=== PATIENT | female | born 1975 | race Caucasian/White ===

== ENCOUNTER 2017-04-22 19:52 | Emergency (ER) | payer BC, SELFPAY ==
[2017-04-22 21:36] VITALS: BP 138/98; PULSE 66; RESP 20; TEMP 36.7; O2SAT 96; BMI 23.9
--- NOTE | 2017-04-22 21:44 | CT_ITS ---
CT abdomen pelvis wo con CLINICAL INDICATION: Right upper quadrant pain ITS.REASON: RUQ PAIN ORDERING PHYSICIAN: Kai Juan MD PATIENT AGE: 41 years COMPARISON: None TECHNIQUE: Axial images obtained with sagittal and coronal reformats. PROCEDURE: Oral Contrast: None IV Contrast: None . FINDINGS: Lower thorax: No acute finding ABDOMEN: Liver: No masses or biliary dilatation. Gallbladder: Nondistended. No radio opaque stones. Pancreas: No masses or peripancreatic fluid collections. Spleen: Unremarkable. Adrenals: Unremarkable Kidneys/ureters: No masses. No renal calculi. No hydronephrosis. No perinephric fluid collections. No ureteral dilatation or obvious ureteral calculi. Stomach bowel: Nondistended. No obvious mass or thickening. Appendix: Prior appendectomy PELVIS: Reproductive: Status post hysterectomy Bladder: Nondistended. No obvious stones or masses. ABDOMEN & PELVIS: Peritoneum: No abnormal fluid collections. No obvious inflammatory changes. No free air. Lymph nodes: No enlarged lymph nodes apparent. Vasculature: No evidence of abdominal aortic aneurysm. No retroperitoneal hemorrhage evident. Bones: No acute fracture IMPRESSION: No acute abdominal or pelvic findings
[2017-04-22 21:52] LABS: Microscopic, Urine URINE MICROSCOPIC (MICROSCOPIC)
[2017-04-22 21:55] LABS: Appearance,Urine SL CLOUDY (Clear); Bilirubin,Urine Negative (Negative); Blood, Urine Negative (Negative); Color,Urine YELLOW (Yellow); Glucose,Urine (UA) Negative (Negative); Ketones,Urine Negative (Negative); Leukocyte Esterase,Urine Negative (Negative); Nitrate,Urine Negative (Negative); Protein,Urine Negative (Negative); Specific Gravity, Urine 1.025 (1.005-1.030); Urobilinogen,Urine 0.2 EU/dl (0.2)
[2017-04-22 22:10] LABS: Basophils # 0.1 K/mm3 (0-0.2); Basophils % 0.6 % (0.1-2.0); Eosinophils # 0.1 K/mm3 (0.0-0.4); Eosinophils % 1.3 % (0.1-12.0); Hematocrit 40.9 % (37.0-47.0); Hemoglobin 13.1 g/dL (12.2-16.2); Lymphocytes # 3.3 K/mm3 (0.7-4.5); Lymphocytes % 38.9 K/mm3 (10-50); Mean Corpuscular HGB Conc 32.1 g/dL (31.8-35.4); Mean Corpuscular Hemoglobin 26.6 pg (27.0-31.2); Mean Corpuscular Volume 82.9 fl (81-99); Mean Platelet Volume 8.4 fl (7.4-10.4); Monocytes # 0.7 K/mm3 (0.1-1.0); Monocytes % 8.4 % (1.7-9.3); Neutrophils # 4.3 K/mm3 (1.8-7.8); Neutrophils % 50.8 % (37.0-80.0); Platelet Count 236 K/mm3 (142-424); Red Blood Count 4.93 M/mm3 (4.20-5.40); Red Cell Distribution Width 13.5 % (11.5-17.5); White Blood Count 8.4 K/mm3 (4.8-10.8)
[2017-04-22 22:30] LABS: Bacteria,Urine 2+ /lpf; Mucus,Urine 2+ /lpf; RBC,Urine Occasional #/hpf (0-3); Squamous Epithelial Cell,Urine TNTC #/hpf (0-5)
--- NOTE | 2017-04-23 00:09 | HMH.EDGENADL ---
ED Disposition Clinical Impression: Pancreatitis Qualifiers: Chronicity: acute Pancreatitis type: unspecified pancreatitis type Acute pancreatitis complication: no infection or necrosis Qualified Code(s): K85.90 - Acute pancreatitis without necrosis or infection, unspecified Abdominal pain Qualifiers: Abdominal location: right upper quadrant Qualified Code(s): R10.11 - Right upper quadrant pain Disposition: Home, Self-Care Condition on Discharge: Good Instructions: DI for Pancreatitis Additional Instructions: no fluids and call pcp in am and recheck if needed Referrals: Rahul Mars [Primary Care Provider] - - Critical Care Critical Care Time: No Attestation: On 04/22/17, the high probability of a clinically significant, sudden or life threatening deterioration of the following system(s) required my full and direct attention, intervention and personal management. The time I documented below is in addition to time spent performing reported procedures but includes the following listed in this critical care notation. Medical Decision Making - Medical Records Medical records reviewed: Yes: I reviewed the patient's medical records. Vital Signs: 04/22/17 21:36 Temperature 98.1 F Temperature Source Oral Pulse Rate [Right Brachial] 66 Respiratory Rate 20 Blood Pressure [Right Arm] 138/98 Blood Pressure Mean [Right Arm] 111 Blood Pressure Source [Right Arm] Automatic Cuff Blood Pressure Position [Right Arm] Supine 02 Sat by Pulse Oximetry 96 Oxygen Delivery Method Room Air - Lab Data Lab results reviewed: Yes: I reviewed the patient's lab results. Lab Results 04/22/17 21:40: Urine Color Yellow, Urine Appearance Sl cloudy, Urine pH 6.0, Ur Specific [place] 1.025, Urine Protein Negative, Urine Glucose (UA) Negative, Urine Ketones Negative, Urine Blood Negative, Urine Nitrate Negative, Urine Bilirubin Negative, Urine Urobilinogen 0.2, Ur Leukocyte Esterase Negative, Urine RBC Occasional, Urine WBC 5-10, Ur Squamous Epith Cells Tntc, Urine Bacteria 2+, Urine Mucus 2+ 04/22/17 22:00: WBC 8.4, RBC 4.93, Hgb 13.1, Hct 40.9, MCV 82.9, MCH 26.6 L, MCHC 32.1, RDW 13.5, Plt Count 236, MPV 8.4, Neut % (Auto) 50.8, Lymph % (Auto) 38.9, [place] % (Auto) 8.4, Eos % (Auto) 1.3, Baso % (Auto) 0.6, Neut # (Auto) 4.3, Lymph # (Auto) 3.3, [place] # (Auto) 0.7, Eos # (Auto) 0.1, Baso # (Auto) 0.1 04/22/17 22:00: Sodium 141, Potassium 3.9, Chloride 105, Carbon Dioxide 26, Anion Gap 13.9, BUN 16, Creatinine 0.71, Estimated Creat Clear 117, Estimated GFR 92, Est GFR ( Amer) 111, Glucose 94, Calcium 8.9, Total Bilirubin 0.1 L, AST 15, ALT 39, Alkaline Phosphatase 97, Total Protein 7.0, Albumin 3.8, Globulin 3.2, Albumin/Globulin Ratio 1.2 04/23/17 00:14: Amylase 143 H, Lipase 876 H Result diagrams: 04/22/17 22:00 04/22/17 22:00 Orders (Tests/Meds): ED MEDICATIONS Discontinued Medications Generic Name Dose Route Start Last Admin Trade Name Delisa PRN Reason Stop Dose Admin Morphine Sulfate 5 mg 04/23/17 00:15 04/23/17 00:26 Morphine 10mg/Ml Syringe IV 04/23/17 00:16 5 mg ONCE ONE Administration Promethazine HCl 12.5 mg 04/23/17 00:17 04/23/17 00:25 Phenergan 25mg/Ml 1ml Vial IV 04/23/17 00:18 12.5 mg ONCE ONE Administration Sodium Chloride 25 ml 04/23/17 00:17 04/23/17 00:26 Sod Chloride 0.9% 25ml Bag IV 04/23/17 00:18 25 ml ONCE ONE Administration ORDERS Category Date Time Status CT abdomen pelvis wo con Stat Cat Scan 04/22/17 21:44 Taken Urine Culture Stat Micro 04/22/17 21:40 Received - CT Data CT Scan: Abdomen, Pelvis Time Received: 00:[address] Reviewed: Yes: I have viewed the radiologist's interpretation Preliminary Findings: Normal/NAD - [place] Inquiry Pt receiving controlled substance: No General Adult HPI - General Chief complaint: PAIN Stated complaint: PAIN IN SIDE Time Seen by Provider: 04/23/17 00:10 Mode of Arrival: Ambulatory Source o
--- NOTE | 2017-04-23 00:12 | ED_ITS ---
ED Disposition Clinical Impression: Pancreatitis Qualifiers: Chronicity: acute Pancreatitis type: unspecified pancreatitis type Acute pancreatitis complication: no infection or necrosis Qualified Code(s): K85.90 - Acute pancreatitis without necrosis or infection, unspecified Abdominal pain Qualifiers: Abdominal location: right upper quadrant Qualified Code(s): R10.11 - Right upper quadrant pain Disposition: Home, Self-Care Condition on Discharge: Good Instructions: DI for Pancreatitis Additional Instructions: no fluids and call pcp in am and recheck if needed Referrals: Rahul Mars [Primary Care Provider] - - Critical Care Critical Care Time: No Attestation: On 04/22/17, the high probability of a clinically significant, sudden or life threatening deterioration of the following system(s) required my full and direct attention, intervention and personal management. The time I documented below is in addition to time spent performing reported procedures but includes the following listed in this critical care notation. Medical Decision Making - Medical Records Medical records reviewed: Yes: I reviewed the patient's medical records. Vital Signs: 04/22/17 21:36 Temperature 98.1 F Temperature Source Oral Pulse Rate [Right Brachial] 66 Respiratory Rate 20 Blood Pressure [Right Arm] 138/98 Blood Pressure Mean [Right Arm] 111 Blood Pressure Source [Right Arm] Automatic Cuff Blood Pressure Position [Right Arm] Supine 02 Sat by Pulse Oximetry 96 Oxygen Delivery Method Room Air - Lab Data Lab results reviewed: Yes: I reviewed the patient's lab results. Lab Results 04/22/17 21:40: Urine Color Yellow, Urine Appearance Sl cloudy, Urine pH 6.0, Ur Specific [place] 1.025, Urine Protein Negative, Urine Glucose (UA) Negative, Urine Ketones Negative, Urine Blood Negative, Urine Nitrate Negative, Urine Bilirubin Negative, Urine Urobilinogen 0.2, Ur Leukocyte Esterase Negative, Urine RBC Occasional, Urine WBC 5-10, Ur Squamous Epith Cells Tntc, Urine Bacteria 2+, Urine Mucus 2+ 04/22/17 22:00: WBC 8.4, RBC 4.93, Hgb 13.1, Hct 40.9, MCV 82.9, MCH 26.6 L, MCHC 32.1, RDW 13.5, Plt Count 236, MPV 8.4, Neut % (Auto) 50.8, Lymph % (Auto) 38.9, [place] % (Auto) 8.4, Eos % (Auto) 1.3, Baso % (Auto) 0.6, Neut # (Auto) 4.3 , Lymph # (Auto) 3.3, Will # (Auto) 0.7, Eos # (Auto) 0.1, Baso # (Auto) 0.1 04/22/17 22:00: Sodium 141, Potassium 3.9, Chloride 105, Carbon Dioxide 26, Anion Gap 13.9, BUN 16, Creatinine 0.71, Estimated Creat Clear 117, Estimated GFR 92, Est GFR ( Amer) 111, Glucose 94, Calcium 8.9, Total Bilirubin 0.1 L, AST 15, ALT 39, Alkaline Phosphatase 97, Total Protein 7.0, Albumin 3.8, Globulin 3.2, Albumin/Globulin Ratio 1.2 04/23/17 00:14: Amylase 143 H, Lipase 876 H Result diagrams: 04/22/17 22:00 04/22/17 22:00 Orders (Tests/Meds): ED MEDICATIONS Discontinued Medications Generic Name Dose Route Start Last Admin Trade Name Delisa PRN Reason Stop Dose Admin Morphine Sulfate 5 mg 04/23/17 00:15 04/23/17 00:26 Morphine 10mg/Ml Syringe IV 04/23/17 00:16 5 mg ONCE ONE Administration Promethazine HCl 12.5 mg 04/23/17 00:17 04/23/17 00:25 Phenergan 25mg/Ml 1ml Vial IV 04/23/17 00:18 12.5 mg ONCE ONE Administration Sodium Chloride 25 ml 04/23/17 00:17 04/23/17 00:26 Sod Chloride 0.9% 25ml Bag IV 04/23/17 00:18 25 ml ONCE O
[2017-04-23 00:31] LABS: Alanine Aminotransferase 39 U/L (12-78); Albumin Level 3.8 gm/dL (3.4-5.0); Albumin/Globulin Ratio 1.2 (1.1-1.8); Alkaline Phosphatase 97 U/L (46-116); Anion Gap 13.9 mEq/L (5-15); Aspartate Amino Transferase 15 U/L (15-37); Bilirubin,Total 0.1 mg/dL (0.2-1.0); Blood Urea Nitrogen 16 mg/dL (7-18); Calcium 8.9 mg/dL (8.5-10.1); Carbon Dioxide 26 mmol/L (21.0-32.0); Chloride 105 mmol/L (98-107); Creatinine Clearance Estimated 117 mL/min (0-300); Creatinine,Serum 0.71 mg/dL (0.55-1.02); Estimated Glomerular Filt Rate 92 ml/min (>60); GFR (African American) 111 ML/MIN (>60); Globulin 3.2 gm/dl (1.3-3.2); Glucose 94 mg/dL (74-106); Potassium 3.9 mmoL/L (3.5-5.1); Sodium 141 mmol/L (136-145)
[2017-04-23 00:57] LABS: Amylase 143 U/L (25-125); Lipase 876 u/L (73-393)
[2017-04-23 01:32] VITALS: BP 144/85; PULSE 61; RESP 20; O2SAT 98
== END 2017-04-23 01:35 | disposition home or self-care (01) ==
LOC: UTC 20:00 → ER 20:53
PROVIDERS: Emergency Provider Emergency Medicine; Family Provider Internal Medicine; PCP Internal Medicine
DX: K85.90 Acute pancreatitis without necrosis or infection, unspecified (principal); Z88.1 Allergy status to other antibiotic agents
CPT/HCPCS: 74176; 80053; 81001; 82150; 83690; 85025; 87086; 96374; 96375; 99282; 99284; J2405

== ENCOUNTER → 2017-05-06 08:06 | Outpatient (CLI) | payer BC, SELFPAY ==
--- NOTE | 2017-05-06 08:18 | US_ITS ---
HISTORY: Right upper quadrant pain with nausea ITS.REASON: RUQ PAIN ORDERING PHYSICIAN: Minoo Hernández PATIENT AGE: 41 years COMPARISON: None FINDINGS: PANCREAS: Unremarkable. No obvious mass or abnormal fluid collection. No ductal dilatation LIVER: No focal liver lesions demonstrated. Homogeneous echogenicity. No intrahepatic biliary ductal dilatation evident RIGHT KIDNEY: Unremarkable. Normal size and echogenicity. No hydronephrosis GALLBLADDER: No gallstones, gallbladder wall thickening, pericholecystic fluid, or biliary dilatation. IMPRESSION: Negative gallbladder/right upper quadrant ultrasound
[2017-05-06 09:21] LABS: Eosinophils # 0.1 K/mm3 (0.0-0.4); Lymphocytes # 1.8 K/mm3 (0.7-4.5); Neutrophils # 2.8 K/mm3 (1.8-7.8)
[2017-05-06 09:53] LABS: Amylase 39 U/L (25-125); Blood Urea Nitrogen 15 mg/dL (7-18); Glucose 86 mg/dL (74-106); Lipase 109 u/L (73-393); Sodium 141 mmol/L (136-145); Total Protein,Serum 6.8 gm/dL (6.4-8.2)
[2017-05-06 10:17] LABS: Albumin Level 3.9 gm/dL (3.4-5.0); Albumin/Globulin Ratio 1.3 (1.1-1.8); Aspartate Amino Transferase 13 U/L (15-37); Globulin 2.9 gm/dl (1.3-3.2)
[2017-05-06 10:18] LABS: Basophils % 0.7 % (0.1-2.0); Hematocrit 44.2 % (37.0-47.0); Hemoglobin 14.5 g/dL (12.2-16.2); Lymphocytes % 35.3 K/mm3 (10-50); Mean Corpuscular HGB Conc 32.9 g/dL (31.8-35.4); Mean Corpuscular Hemoglobin 27.3 pg (27.0-31.2); Mean Corpuscular Volume 83.1 fl (81-99); Mean Platelet Volume 8.3 fl (7.4-10.4); Monocytes # 0.3 K/mm3 (0.1-1.0); Monocytes % 6.5 % (1.7-9.3); Neutrophils % 56.4 % (37.0-80.0); Platelet Count 227 K/mm3 (142-424); Red Blood Count 5.32 M/mm3 (4.20-5.40); Red Cell Distribution Width 13.2 % (11.5-17.5)
[2017-05-06 10:28] LABS: Alanine Aminotransferase 30 U/L (12-78); Alkaline Phosphatase 81 U/L (46-116); Anion Gap 13.1 mEq/L (5-15); Bilirubin,Total 0.3 mg/dL (0.2-1.0); Calcium 8.8 mg/dL (8.5-10.1); Carbon Dioxide 29 mmol/L (21.0-32.0); Chloride 103 mmol/L (98-107); Creatinine,Serum 0.58 mg/dL (0.55-1.02); Estimated Glomerular Filt Rate 116 ml/min (>60); GFR (African American) 140 ML/MIN (>60); Potassium 4.1 mmoL/L (3.5-5.1)
== END ==
PROVIDERS: Family Provider Internal Medicine; PCP Internal Medicine; Visit Provider Nurse Practitioner Acute Care
DX: R10.11 Right upper quadrant pain (principal)
CPT/HCPCS: 36415; 76705; 80053; 82150; 83690; 85025

== ENCOUNTER 2017-05-17 09:01 | Emergency (ER) | payer BC, SELFPAY ==
[2017-05-17 09:38] VITALS: BP 138/95; PULSE 71; RESP 16; TEMP 37; O2SAT 99; BMI 25.0
[2017-05-17 09:51] LABS: UTC Influenza A Antigen Negative (Negative); UTC Influenza B Antigen Negative (Negative); UTC Strep Screen (Rapid) Negative (Negative)
--- NOTE | 2017-05-17 11:04 | HMH.EDUTC ---
[facility] [place] Disposition Clinical Impression: Upper respiratory infection Qualifiers: URI type: unspecified URI Qualified Code(s): J06.9 - Acute upper respiratory infection, unspecified Disposition: Home, Self-Care Condition on Discharge: Good Instructions: DI for Viral Upper Respiratory Infection -- Adult, DI for Sinusitis Additional Instructions: * No sign of bacterial infection most likely viral. I understand your symptoms and the kids. An antibiotic will not make you feel better. Antibiotics are for bacterial infections. Viruses have to run their course with treating the symptoms. I understand you would prefer to have an antibiotic and I will give you one only for that reason. Remember that as we discussed, antibiotics do come with side effects and risk including allergic reactions and resistance. Resistance to antibiotics can cause serious complications in the future if there is no antibiotic to treat an infection you have. Carefully consider this before starting antibiotics for symptoms that are likely viral. * Monitor Temp. Tylenol every 4 hours as needed no more then 5 times a day or 4000mg in 24 hours and/or ibuprofen every 6 hours as needed no more then 3200mg in 24 hours (as long as your primary care doctor has told you that it is ok to take both) for fever/aches/pain. ER if fever no less than 101 despite tylenol and ibuprofen * Encourage fluids, water, gatorade, powerade, pedialyte if infant/toddler/child * warm salt water gargles * warm fluids * sore throat lozenges * sleep elevated * humidifier/vaporizer * flonase 2 sprays each nostril daily but may take 2-3 days to notice improvement with it. * sudafed if not in cold medication * * Your throat swab was sent for culture. Those results are typically sent to your primary care. Be sure to follow up in 2-3 days if no improvement so they can review those results and treat if necessary. If you don't have primary care, I recommend you get one but in the mean time, you will have to return to a walk in clinic. Prescriptions: Amoxicillin [Amoxicillin 875MG Tab] 875 mg PO Q12H #20 tab Fluconazole [Diflucan] 150 mg PO DAILY #1 tab Fluticasone Propionate [Flonase 50mcg nasal spray 16gm] 2 spr NS DAILY #1 bottle Referrals: Rahul Mars [Primary Care Provider] - (IMMEDIATELY for new or worsening symptoms OR no noticeable improvement over the next 48-72 hours. 911 for difficulty breathing or swallowing. ) Time of Disposition: 11:11 Medical Decision Making Vital Signs: 05/17/17 09:38 Temperature 98.6 F Temperature Source Temporal Artery Scan Pulse Rate [Right Radial] 71 Respiratory Rate 16 Blood Pressure [Right Arm] 138/95 Blood Pressure Mean [Right Arm] 109 Blood Pressure Source [Right Arm] Automatic Cuff Blood Pressure Position [Right Arm] Sitting 02 Sat by Pulse Oximetry 99 Oxygen Delivery Method Room Air - Lab Data Lab results reviewed: Yes: I reviewed the patient's lab results. Lab Results 05/17/17 09:43: Influenza Type A Ag Negative, Influenza Type B Ag Negative, Strep Scn Rapid Clinic Negative Orders (Tests/Meds): ORDERS Category Date Time Status Strep Screen Confirmation Stat Micro 05/17/17 09:43 Received - [place] Inquiry Pt receiving controlled substance: No [facility] [place] HPI - General Stated complaint: runny nose fever cough vomiting Time Seen by Provider: 05/17/17 09:25 Mode of Arrival: Family Vehicle Source of Information: Patient Limitations: No Limitations Description of Symptoms (Recalled from Triage Doc. by RN): body aches, chills, runny nose cough. HEENT Symptoms (Recalled from RN notes): Yes (runny nose) Resp Symptoms (Recalled from RN notes): Yes (cough) Skin Symptoms (Recalled from RN notes): Yes (body aches, chills) MS Symptoms (Recalled from RN notes): No Functional Status (Recalled from RN notes): na - History of Present Illness Provider Complaint: Here w/ foster children c/o rhinorrhea, sneezing and cough for 3
--- NOTE | 2017-05-17 11:07 | ED_ITS ---
[facility] [place] Disposition Clinical Impression: Upper respiratory infection Qualifiers: URI type: unspecified URI Qualified Code(s): J06.9 - Acute upper respiratory infection, unspecified Disposition: Home, Self-Care Condition on Discharge: Good Instructions: DI for Viral Upper Respiratory Infection -- Adult, DI for Sinusitis Additional Instructions: * No sign of bacterial infection most likely viral. I understand your symptoms and the kids. An antibiotic will not make you feel better. Antibiotics are for bacterial infections. Viruses have to run their course with treating the symptoms. I understand you would prefer to have an antibiotic and I will give you one only for that reason. Remember that as we discussed, antibiotics do come with side effects and risk including allergic reactions and resistance. Resistance to antibiotics can cause serious complications in the future if there is no antibiotic to treat an infection you have. Carefully consider this before starting antibiotics for symptoms that are likely viral. * Monitor Temp. Tylenol every 4 hours as needed no more then 5 times a day or 4000mg in 24 hours and/or ibuprofen every 6 hours as needed no more then 3200mg in 24 hours (as long as your primary care doctor has told you that it is ok to take both) for fever/aches/pain. ER if fever no less than 101 despite tylenol and ibuprofen * Encourage fluids, water, gatorade, powerade, pedialyte if infant/toddler/ child * warm salt water gargles * warm fluids * sore throat lozenges * sleep elevated * humidifier/vaporizer * flonase 2 sprays each nostril daily but may take 2-3 days to notice improvement with it. * sudafed if not in cold medication * * Your throat swab was sent for culture. Those results are typically sent to your primary care. Be sure to follow up in 2-3 days if no improvement so they can review those results and treat if necessary. If you don't have primary care , I recommend you get one but in the mean time, you will have to return to a walk in clinic. Prescriptions: Amoxicillin [Amoxicillin 875MG Tab] 875 mg PO Q12H #20 tab Fluconazole [Diflucan] 150 mg PO DAILY #1 tab Fluticasone Propionate [Flonase 50mcg nasal spray 16gm] 2 spr NS DAILY #1 bottle Referrals: Rahul Mars [Primary Care Provider] - (IMMEDIATELY for new or worsening symptoms OR no noticeable improvement over the next 48-72 hours. 911 for difficulty breathing or swallowing. ) Time of Disposition: 11:11 Medical Decision Making Vital Signs: 05/17/17 09:38 Temperature 98.6 F Temperature Source Temporal Artery Scan Pulse Rate [Right Radial] 71 Respiratory Rate 16 Blood Pressure [Right Arm] 138/95 Blood Pressure Mean [Right Arm] 109 Blood Pressure Source [Right Arm] Automatic Cuff Blood Pressure Position [Right Arm] Sitting 02 Sat by Pulse Oximetry 99 Oxygen Delivery Method Room Air - Lab Data Lab results reviewed: Yes: I reviewed the patient's lab results. Lab Results 05/17/17 09:43: Influenza Type A Ag Negative, Influenza Type B Ag Negative, Strep Scn Rapid Clinic Negative Orders (Tests/Meds): ORDERS Category Date Time Status Strep Screen Confirmation Stat Micro 05/17/17 09:43 Received - [place] Inquiry Pt receiving controlled substance: No [facility] [place] HPI - General Stated complaint: runny nose fever cough vomiting Time Seen by Provider: 05/17/17 09:25 Mode of Arrival: Family Vehicle Source of Information: Patient
[2017-05-17 11:12] VITALS: BP 133/80; PULSE 78; RESP 96; TEMP 36.7
== END 2017-05-17 11:13 | disposition home or self-care (01) ==
PROVIDERS: Emergency Provider Nurse Practitioner Family; Family Provider Internal Medicine; PCP Internal Medicine
DX: J06.9 Acute upper respiratory infection, unspecified (principal); Z88.1 Allergy status to other antibiotic agents
CPT/HCPCS: 87804; 87880; 99201

== ENCOUNTER 2017-06-08 07:51 | Day surgery (SDC) | payer BC, SELFPAY ==
[2017-06-02 14:21] VITALS: BMI 23.5
[2017-06-08] VITALS (12 sets, daily range): BP systolic 102–134; BP diastolic 58–80; PULSE 60–88; RESP 16–22; TEMP 36.3–36.5; O2SAT 90–100
--- NOTE | 2017-06-08 09:26 | HMH.PROC ---
[facility] Procedure Note Procedure Note:: Colonoscopy Procedure Report: Colonoscopy with cold biopsies Endoscopist: Steve Winston II, MD Referring physician: Rahul Mars M.D. Date of Procedure: June 08, 2017 Equipment: Olympus 180 variable stiffness pediatric colonoscope Sedation: Fentanyl 200 mg IV/ Versed 9 mg IV Indication: Mrs. Cee is a 41-year-old female who is here for follow-up screening/surveillance colonoscopy. The patient does have a strong family history of colon cancer. Her father had advanced colon polyps as well as colon cancer. She also states that her paternal grandmother and great grandfather had colon cancer. The patient was having some right upper quadrant abdominal pain with nausea and vomiting. She did have elevated pancreatic chemistries. The patient's subsequent blood work showed alkaline phosphatase 81, AST 13, ALT 30, amylase 39 and lipase 109. These were normal. She also had normal CBC. Her ultrasound of the right upper quadrant was unremarkable with normal gallbladder. There is no gallstones, wall thickening, pericholecystic fluid or biliary ductal dilation. The patient reports no rectal bleeding, weight loss, change in her bowel habits. Her last colonoscopy in October of 2012 was normal. Procedure: Prior to the procedure, a history and physical exam was performed, and patient's medications and allergies were reviewed. The risks, benefits and alternatives of the sedation and procedure were discussed with the patient. All questions were answered and informed consent was obtained. The patient was brought to the procedure room. Patient identification and proposed procedure were verified by the physician and the nurse. The patient was placed in a left lateral decubitus position and the scope was passed under direct vision. Throughout the procedure, the patient's blood pressure, pulse, and oxygen saturations were monitored continuously. The colonoscopy was accomplished without difficulty. The patient tolerated the procedure well. Findings: On digital rectal examination there was normal rectal tone. There were no external hemorrhoids. The colonoscope was introduced through the anal canal to the rectum and advanced to the cecum. The ileocecal valve and appendiceal orifice were identified. The scope was advanced a short distance into the ileum which appeared grossly normal. The scope was then withdrawn into the colon. The cecum, ascending, transverse, descending, sigmoid and rectum were grossly normal. There was a diminutive polyp in the sigmoid colon removed via cold biopsy. There were no other mucosal abnormalities identified. Upon retroflexion within the rectum there were grade 1 internal hemorrhoids. Impression: 1. Diminutive sigmoid polyp 2. Grade 1 internal hemorrhoids Plan: I will follow up the polyp histology and recommend repeat screening/surveillance colonoscopy in 5 years based upon her family history. Patient does have recurrent right upper quadrant pain with elevated pancreatic or biliary chemistries, would consider ERCP.
--- NOTE | 2017-06-08 09:30 | P.PCN_ITS ---
[facility] Procedure Note Procedure Note:: Colonoscopy Procedure Report: Colonoscopy with cold biopsies Endoscopist: Steve Winston II, MD Referring physician: Rahul Mars M.D. Date of Procedure: June 08, 2017 Equipment: Olympus 180 variable stiffness pediatric colonoscope Sedation: Fentanyl 200 mg IV/ Versed 9 mg IV Indication: Mrs. Cee is a 41-year-old female who is here for follow-up screening/surveillance colonoscopy. The patient does have a strong family history of colon cancer. Her father had advanced colon polyps as well as colon cancer. She also states that her paternal grandmother and great grandfather had colon cancer. The patient was having some right upper quadrant abdominal pain with nausea and vomiting. She did have elevated pancreatic chemistries. The patient's subsequent blood work showed alkaline phosphatase 81, AST 13, ALT 30, amylase 39 and lipase 109. These were normal. She also had normal CBC. Her ultrasound of the right upper quadrant was unremarkable with normal gallbladder. There is no gallstones, wall thickening, pericholecystic fluid or biliary ductal dilation. The patient reports no rectal bleeding, weight loss, change in her bowel habits. Her last colonoscopy in October of 2012 was normal. Procedure: Prior to the procedure, a history and physical exam was performed, and patient' s medications and allergies were reviewed. The risks, benefits and alternatives of the sedation and procedure were discussed with the patient. All questions were answered and informed consent was obtained. The patient was brought to the procedure room. Patient identification and proposed procedure were verified by the physician and the nurse. The patient was placed in a left lateral decubitus position and the scope was passed under direct vision. Throughout the procedure, the patient's blood pressure, pulse, and oxygen saturations were monitored continuously. The colonoscopy was accomplished without difficulty. The patient tolerated the procedure well. Findings: On digital rectal examination there was normal rectal tone. There were no external hemorrhoids. The colonoscope was introduced through the anal canal to the rectum and advanced to the cecum. The ileocecal valve and appendiceal orifice were identified. The scope was advanced a short distance into the ileum which appeared grossly normal. The scope was then withdrawn into the colon. The cecum, ascending, transverse, descending, sigmoid and rectum were grossly normal. There was a diminutive polyp in the sigmoid colon removed via cold biopsy. There were no other mucosal abnormalities identified. Upon retroflexion within the rectum there were grade 1 internal hemorrhoids. Impression: 1. Diminutive sigmoid polyp 2. Grade 1 internal hemorrhoids Plan: I will follow up the polyp histology and recommend repeat screening/ surveillance colonoscopy in 5 years based upon her family history. Patient does have recurrent right upper quadrant pain with elevated pancreatic or biliary chemistries, would consider ERCP.
== END 2017-06-08 10:30 | disposition home or self-care (01) ==
LOC: OUTP 07:52
PROVIDERS: Family Provider Internal Medicine; PCP Internal Medicine; Visit Provider Internal Medicine Gastroenterology
PROC: 0DJD8ZZ Inspection of Lower Intestinal Tract, Via Natural or Artificial Opening Endoscopic (ICD-10-PCS; CPT 45378; principal; 2017-06-08 09:00)
DX: Z12.11 Encounter for screening for malignant neoplasm of colon (principal); K63.5 Polyp of colon; K64.0 First degree hemorrhoids; Z80.0 Family history of malignant neoplasm of digestive organs
CPT/HCPCS: 45380; 99152

== ENCOUNTER → 2017-11-09 09:30 | Outpatient (POV) | payer BC, SELFPAY | PROVIDERS: Family Provider Internal Medicine; PCP Internal Medicine; Visit Provider Nurse Practitioner Acute Care | DX: Z00.00 Encounter for general adult medical examination without abnormal findings (principal) ==

== ENCOUNTER 2020-06-10 15:59 | Emergency (ER) | payer BC, SELFPAY ==
[2020-06-10 16:00] VITALS: BP 140/56; PULSE 73; RESP 16; TEMP 37.2; O2SAT 98; BMI 27.3
--- NOTE | 2020-06-10 16:16 | HMH.EDGENADL ---
ED Disposition Clinical Impression: Status migrainosus Disposition: Home, Self-Care Condition on Discharge: Good Instructions: DI for Migraine Additional Instructions: Continue current migraine therapy and follow up with your doctor tomorrow. Additional instructions for HEADACHE: See your physician as soon as possible for further evaluation. Return immediately if worsening headache, vomiting, problems with vision or speech, fever, numbness or weakness of the extremities, neck pain or stiffness. Referrals: Rahul Mars [Primary Care Provider] - - Critical Care Critical Care Time: No Attestation: On 06/10/20, the high probability of a clinically significant, sudden or life threatening deterioration of the following system(s) required my full and direct attention, intervention and personal management. The time I documented below is in addition to time spent performing reported procedures but includes the following listed in this critical care notation. Medical Decision Making - [place] Inquiry Pt receiving controlled substance: No Vital Signs: 06/10/20 16:00 06/10/20 17:04 Temperature 98.9 F Temperature Source Oral Pulse Rate [Radial] 73 79 Respiratory Rate 16 16 Blood Pressure [Right Arm] 140/56 L 138/81 Blood Pressure Mean [Right Arm] 84 100 Blood Pressure Position [Right Arm] Sitting Sitting 02 Sat by Pulse Oximetry 98 100 Oxygen Delivery Method Room Air Room Air - Lab Data Lab results reviewed: Yes: I reviewed the patient's lab results. Lab Results 06/10/20 16:20: WBC 6.4, RBC 5.23, Hgb 13.1, Hct 42.9, MCV 82.1, MCH 25.0 L, MCHC 30.4 L, RDW 13.4, Plt Count 230, MPV 7.9, Neut % (Auto) 50.1, Lymph % (Auto) 39.9, [place] % (Auto) 8.0, Eos % (Auto) 1.4, Baso % (Auto) 0.6, Neut # (Auto) 3.2, Lymph # (Auto) 2.6, [place] # (Auto) 0.5, Eos # (Auto) 0.1, Baso # (Auto) 0.0 06/10/20 16:20: Sodium 141, Potassium 3.6, Chloride 103, Carbon Dioxide 27, Anion Gap 14.6, BUN 16, Creatinine 0.60, Estimated Creat Clear 153, Estimated GFR 110, Est GFR ( Amer) 133, Glucose 112 H, Calcium 10.0 Result diagrams: 06/10/20 16:20 06/10/20 16:20 Orders (Tests/Meds): ED MEDICATIONS Generic Name Dose Route Start Last Admin Trade Name Freq PRN Reason Stop Dose Admin Sodium Chloride 1,000 mls @ 999 mls/hr 06/10/20 16:30 06/10/20 16:23 Sod Chlor 0.9% 1000ml Bag IV 06/10/20 17:30 999 mls/hr .Q1H1M VIVIANA Administration Discontinued Medications Generic Name Dose Route Start Last Admin Trade Name Freq PRN Reason Stop Dose Admin Diphenhydramine HCl 25 mg 06/10/20 16:17 06/10/20 16:23 Diphenhydramine 50mg/Ml Vial IV 06/10/20 16:18 25 mg ONCE ONE Administration Ketorolac Tromethamine 30 mg 06/10/20 16:17 06/10/20 16:23 Ketorolac 30mg/Ml Vial IV 06/10/20 16:18 30 mg ONCE ONE Administration Prochlorperazine Edisylate 10 mg 06/10/20 16:17 06/10/20 16:23 Prochlorperazine 10mg/2ml Vial IV 06/10/20 16:18 10 mg ONCE ONE Administration ORDERS Category Date Time Status CT head/brain wo con Stat Cat Scan 06/10/20 16:34 Taken - CT Data CT Scan: Head Time Received: 17:22 ([facility] fax) ED CT Reviewed: Yes: I have viewed the radiologist's interpretation Preliminary Findings: Normal/NAD - Reevaluation(s) Time: 17:24 Reevaluation #1: States she is better and wants to go home General Adult HPI - General Stated complaint: migraine Time Seen by Provider: 06/10/20 16:31 - History of Present Illness HPI narrative: Has a history of migraines. Complains of a headache. States she awakened at 2 AM with a headache, left periorbital area. She took Axert and improved. She went back to bed. When she awakened at 7 AM headache was still present but not as bad. It worsened again a couple of hours ago. She tried Zomig without improvement. Tried sinus medication without improvement. Headache associated with vomiting and photophobia and smell sensitivity as well as
--- NOTE | 2020-06-10 16:34 | CT_ITS ---
PROCEDURE: CT HEAD/BRAIN WO CON CLINICAL INDICATION: headache Migraine headache, blurred vision COMPARISON: No exams were available for comparison TECHNIQUE: Axial images obtained. All CT scans at the facility use one or more dose reduction, viz: automated exposure control, ma/kV adjustment per patient size (including targeted exams where dose is matched to indication, i.e. head), or iterative reconstruction technique. FINDINGS: No midline shift, mass effect, intracranial hemorrhage, hydrocephalus, or extra-axial fluid collection is evident. The calvarium has an unremarkable appearance. No mastoid effusion. No sinus air-fluid level. IMPRESSION: No acute intracranial finding Dictated by: Trenton Elkins MD 06/11/2020 06:27 Trenton Elkins MD in [facility] 06/11/2020 06:27
--- NOTE | 2020-06-10 16:44 | PC.NURSE ---
TO CT PER WHEELCHAIR
[2020-06-10 16:47] LABS: Basophils % 0.6 % (0.1-2.0); Eosinophils # 0.1 K/mm3 (0.0-0.4); Eosinophils % 1.4 % (0.1-12.0); Hematocrit 42.9 % (37.0-47.0); Hemoglobin 13.1 g/dL (12.2-16.2); Lymphocytes # 2.6 K/mm3 (0.7-4.5); Lymphocytes % 39.9 % (10-50); Mean Corpuscular HGB Conc 30.4 g/dL (31.8-35.4); Mean Corpuscular Volume 82.1 fl (81-99); Mean Platelet Volume 7.9 fl (7.4-10.4); Monocytes # 0.5 K/mm3 (0.1-1.0); Neutrophils # 3.2 K/mm3 (1.8-7.8); Neutrophils % 50.1 % (37.0-80.0); Platelet Count 230 K/mm3 (142-424); Red Blood Count 5.23 M/mm3 (4.20-5.40); Red Cell Distribution Width 13.4 % (11.5-17.5); White Blood Count 6.4 K/mm3 (4.8-10.8)
[2020-06-10 16:48] LABS: Anion Gap 14.6 mEq/L (5-15); Blood Urea Nitrogen 16 mg/dl (7-17); Carbon Dioxide 27 mmol/L (22.0-30.0); Chloride 103 mmol/L (98-107); Creatinine Clearance Estimated 153 mL/min (50-200); Estimated Glomerular Filt Rate 110 ml/min (>60); GFR (African American) 133 ML/MIN (>60); Glucose 112 mg/dl (74-100); Potassium 3.6 mmoL/L (3.5-5.1); Sodium 141 mmol/L (136-145)
[2020-06-10 17:04] VITALS: BP 138/81; PULSE 79; RESP 16; O2SAT 100
[2020-06-10 17:35] VITALS: BP 127/79; PULSE 78; RESP 16; TEMP 36.6; O2SAT 98
== END 2020-06-10 17:36 | disposition home or self-care (01) ==
PROVIDERS: Emergency Provider Emergency Medicine; PCP Internal Medicine
DX: G43.901 Migraine, unspecified, not intractable, with status migrainosus (principal)
CPT/HCPCS: 70450; 80048; 85025; 96365; 96375; 99283

== ENCOUNTER → 2020-08-08 13:07 | Outpatient (CLI) | payer BC, SELFPAY ==
[2020-08-08 13:47] LABS: Basophils % 0.6 % (0.1-2.0); Eosinophils # 0.1 K/mm3 (0.0-0.4); Eosinophils % 1.1 % (0.1-12.0); Hematocrit 41.1 % (37.0-47.0); Hemoglobin 13.2 g/dL (12.2-16.2); Lymphocytes # 2.4 K/mm3 (0.7-4.5); Lymphocytes % 41.8 % (10-50); Mean Corpuscular HGB Conc 32.2 g/dL (31.8-35.4); Mean Corpuscular Hemoglobin 26.1 pg (27.0-31.2); Mean Corpuscular Volume 81.2 fl (81-99); Monocytes # 0.4 K/mm3 (0.1-1.0); Monocytes % 6.5 % (1.7-9.3); Neutrophils # 2.8 K/mm3 (1.8-7.8); Neutrophils % 50.1 % (37.0-80.0); Platelet Count 249 K/mm3 (142-424); Red Blood Count 5.06 M/mm3 (4.20-5.40); Red Cell Distribution Width 14.2 % (11.5-17.5); White Blood Count 5.7 K/mm3 (4.8-10.8)
[2020-08-08 14:24] LABS: Chloride 103 mmol/L (98-107)
[2020-08-08 14:25] LABS: Potassium 3.9 mmoL/L (3.5-5.1); Sodium 138 mmol/L (136-145)
[2020-08-08 14:27] LABS: Alanine Aminotransferase 31 U/L (12-78); Amylase 53 U/L (30-110); Anion Gap 13.9 mEq/L (5-15); Aspartate Amino Transferase 28 U/L (14-36); Blood Urea Nitrogen 13 mg/dl (7-17); Carbon Dioxide 25 mmol/L (22.0-30.0); Estimated Glomerular Filt Rate 92 ml/min (>60); GFR (African American) 111 ML/MIN (>60)
[2020-08-08 14:28] LABS: Albumin Level 4.4 g/dl (3.5-5.0); Albumin/Globulin Ratio 1.9 (1.1-1.8); Alkaline Phosphatase 82 U/L (38-126); Bilirubin,Total 0.3 mg/dl (0.2-1.3); Calcium 9.4 mg/dl (8.4-10.2); Globulin 2.3 g/dL (1.3-3.2); Glucose 124 mg/dl (74-100); Lipase 51 U/L (23-300); Total Protein,Serum 6.7 g/dl (6.3-8.2)
== END ==
PROVIDERS: Visit Provider Nurse Practitioner Family
DX: R10.12 Left upper quadrant pain (principal); R10.13 Epigastric pain; R14.0 Abdominal distension (gaseous)
CPT/HCPCS: 36415; 80053; 82150; 83690; 85025

== ENCOUNTER → 2020-08-10 08:40 | Outpatient (CLI) | payer BC, SELFPAY ==
--- NOTE | 2020-08-10 08:47 | CT_ITS ---
PROCEDURE: CT ABDOMEN PELVIS W CON CLINICAL INDICATION: ABD PAIN,EPIGASTRIC PAIN,BLOATING Luq pain COMPARISON: CT ABDPELWO CT abdomen pelvis wo con from 08/10/2017 TECHNIQUE: IV Contrast: 75ML Isovue 370 Oral Contrast None Axial images obtained with sagittal and coronal reformats. All CT scans at the facility use one or more dose reduction, viz: automated exposure control, ma/kV adjustment per patient size (including targeted exams where dose is matched to indication, i.e. head), or iterative reconstruction technique. FINDINGS: LOWER THORAX: Mild atelectatic changes in the right lung base. Mild coronary artery calcification. ABDOMEN & PELVIS: Small area of decreased attenuation is present in the left hepatic lobe inferiorly and may be due to focal fatty infiltration at the region of the ligament. The liver is otherwise unremarkable. The gallbladder, spleen, adrenal glands, pancreas, and kidneys have an unremarkable appearance. There are few scattered small retroperitoneal lymph nodes not significantly changed. Prior appendectomy. Prior hysterectomy. No intestinal obstruction or free air. No acute bony anomalies. Tiny umbilical hernia containing fat IMPRESSION: No acute finding. Dictated by: Trenton Elkins MD 08/13/2020 05:54 Trenton Elkins MD in [place] 08/13/2020 05:54
== END ==
PROVIDERS: PCP Internal Medicine; Visit Provider Nurse Practitioner Family
DX: R10.12 Left upper quadrant pain (principal); R10.13 Epigastric pain; R14.0 Abdominal distension (gaseous)
CPT/HCPCS: 74177; Q9967

== ENCOUNTER 2020-09-23 14:44 | Emergency (ER) | payer BC, SELFPAY ==
[2020-09-23 15:20] VITALS: BP 133/96; PULSE 77; RESP 18; TEMP 36.9; O2SAT 98; BMI 26.4
--- NOTE | 2020-09-23 16:23 | HMH.EDUTC ---
[facility] [place] Clinical Impression: Rash Disposition: Home, Self-Care Condition on Discharge: Good Instructions: DI for Rash, Methylprednisolone Additional Instructions: Over the counter Benadryl may help with itching Start oral steriods tomorrow you was given injection in [facility] today Follow up with Family Doctor if no improvement or any worsening of symptoms Return if needed Prescriptions: methylPREDNISolone [Medrol 4mg tab] 4 mg PO DIRECTED #21 tab Transmission Status: Received by [email or web address] #[id number] Referrals: Rahul Mars [Primary Care Provider] - As needed Time of Disposition: 16:43 Medical Decision Making - [place] Inquiry Pt receiving controlled substance: No [place] was queried for this patient: No Vital Signs: 09/23/20 15:20 09/23/20 16:44 Temperature 98.5 F 98.5 F Temperature Source Oral Pulse Rate 77 Pulse Rate [Right Brachial] 77 Respiratory Rate 18 18 Blood Pressure 133/96 H Blood Pressure [Right Arm] 133/96 H Blood Pressure Mean [Right Arm] 108 Blood Pressure Source [Right Arm] Automatic Cuff Blood Pressure Position [Right Arm] Sitting 02 Sat by Pulse Oximetry 98 Oxygen Delivery Method Room Air Orders (Tests/Meds): ED MEDICATIONS Discontinued Medications Generic Name Dose Route Start Last Admin Trade Name Freq PRN Reason Stop Dose Admin Methylprednisolone Sodium Succinate 125 mg 09/23/20 16:25 09/23/20 16:31 Methylprednisolone Sod Succ 125mg Vial IM 09/23/20 16:26 125 mg ONCE ONE Administration Medical Decision Narrative: Rash improved after Solu Medrol injection [facility] [place]PI - General Stated complaint: Rash Time Seen by Provider: 09/23/20 16:23 Mode of Arrival: Ambulatory Source of Information: Patient Limitations: No Limitations Description of Symptoms (Recalled from Triage Doc. by RN): PATIENT C/O ITCHY RASH TO FACE SINCE THURSDAY HEENT Symptoms (Recalled from RN notes): No Resp Symptoms (Recalled from RN notes): No Skin Symptoms (Recalled from RN notes): Yes MS Symptoms (Recalled from RN notes): No Functional Status (Recalled from RN notes): WNL - History of Present Illness Provider Complaint: Patient states that she has had rash on her chin and beside her lip since State that it itches and she has tried some over the counter stuff but it hasnt worked so she came in - Related Data Previous Rx's Medication Instructions Recorded methylPREDNISolone [Medrol 4mg 4 mg PO DIRECTED #21 tab 09/23/20 tab] Allergies Allergy/AdvReac Type Severity Reaction Status Date / Time cephalexin [From KEFLEX] Allergy Unknown Hives Verified 06/08/17 08:10 - Worker's Comp Is this a Worker's Comp case?: No H History - Hepatitis A Screen Drug use history?: No High risk sexual behaviors?: No History of sexually transmitted infection?: No Currently employed?: No Childcare worker?: No Do you have indoor plumbing?: Yes Do you have electricity?: Yes Attestation statement:: This patient has been screened for Hepatitis A risk factors. I have reviewed the patient's past medical history: Yes Medical History: Denies:: Cancer, Diabetes Mellitus Type 1, Diabetes Mellitus Type 2, Hypertension, Internal Pacemaker, Lung Disease, MRSA, Seizures Other Medical History: Reports: Other (endometriosis, multiple laparoscopies) Laterality Cases: Right: Arthroscopy Shoulder, Bilateral: Tonsillectomy Other Surgeries: Yes: Appendectomy, Dilation and Curettage, Other (hysterectomy, ). No: Pacemaker Amputation: No Fractures: Yes (wrist) - Social History Smoking Status: Never smoker Alcohol Intake: never Occupational Status: other ROS Obtained: Yes All systems reviewed & no additional complaints, Yes Systems reviewed as appropriate & no additional complaints - Constitutional Constitutional: Reports system reviewed and no additional complaints, except as docu - Eyes Eyes: Reports system reviewed and no additional com
[2020-09-23 16:44] VITALS: BP 133/96; PULSE 77; RESP 18; TEMP 36.9; O2SAT 98
== END 2020-09-23 16:48 | disposition home or self-care (01) ==
PROVIDERS: Emergency Provider Nurse Practitioner; PCP Internal Medicine
DX: R21 Rash and other nonspecific skin eruption (principal); Z88.1 Allergy status to other antibiotic agents
CPT/HCPCS: 96372; 99202; G0463

== ENCOUNTER 2020-10-22 17:59 | Emergency (ER) | payer BC, SELFPAY ==
[2020-10-22 18:00] VITALS: BP 138/98; PULSE 62; RESP 18; TEMP 37.1; O2SAT 97; BMI 24.3
[2020-10-22 18:54] VITALS: BP 138/98; PULSE 62; RESP 18; TEMP 37.1; O2SAT 97
--- NOTE | 2020-10-22 19:03 | HMH.EDUTC ---
[facility] [place] Disposition Clinical Impression: Bronchitis Pharyngitis Qualifiers: Pharyngitis/tonsillitis etiology: unspecified etiology Qualified Code(s): J02.9 - Acute pharyngitis, unspecified Disposition: Home, Self-Care Condition on Discharge: Good Instructions: DI for Pharyngitis/Tonsillopharyngitis -- Adult, DI for Acute Bronchitis Additional Instructions: Drink plenty of fluids. Take tylenol or ibuprofen for pain or fever. Take the medications as directed. Follow up with your regular doctor. GO TO THE ER FOR ANY WORSENING SYMPTOMS Prescriptions: predniSONE [Prednisone 20mg Tab] 20 mg PO BID 4 Days #8 tab Transmission Status: Received by [facility] #[id number] Benzonatate [Tessalon Perle 100mg Cap] 100 mg PO TIDP PRN #30 cap PRN Reason: Cough Transmission Status: Received by [facility] #[id number] Azithromycin [Z-Davonte 250mg Tab*] 250 mg PO UD DOSE PK #6 tab Transmission Status: Received by [facility] #[id number] Referrals: Rahul Mars [Primary Care Provider] - Time of Disposition: 19:14 Medical Decision Making - Medical Records Medical records reviewed: No: I reviewed the patient's medical records. - [place] Inquiry Pt receiving controlled substance: No Vital Signs: 10/22/20 18:00 10/22/20 18:54 Temperature 98.7 F 98.7 F Temperature Source Oral Pulse Rate 62 Pulse Rate [Right Brachial] 62 Respiratory Rate 18 18 Blood Pressure 138/98 H Blood Pressure [Right Arm] 138/98 H Blood Pressure Mean [Right Arm] 111 Blood Pressure Source [Right Arm] Automatic Cuff Blood Pressure Position [Right Arm] Sitting 02 Sat by Pulse Oximetry 97 Oxygen Delivery Method Room Air - Lab Data Lab results reviewed: No: I reviewed the patient's lab results. [facility] [place] HPI - General Stated complaint: cough sore throat Time Seen by Provider: 10/22/20 19:03 Mode of Arrival: Ambulatory Source of Information: Patient Limitations: No Limitations Description of Symptoms (Recalled from Triage Doc. by RN): PATIENT C/O SORE THROAT AND COUGH HEENT Symptoms (Recalled from RN notes): Yes Resp Symptoms (Recalled from RN notes): No Skin Symptoms (Recalled from RN notes): No MS Symptoms (Recalled from RN notes): No Functional Status (Recalled from RN notes): WNL - History of Present Illness Provider Complaint: She c/o sore throat and sinus congestion for the past 2 days. - Related Data Previous Rx's Medication Instructions Recorded methylPREDNISolone [Medrol 4mg 4 mg PO DIRECTED #21 tab 09/23/20 tab] Azithromycin [Z-Davonte 250mg Tab*] 250 mg PO UD DOSE PK #6 tab 10/22/20 Benzonatate [Tessalon Perle 100mg 100 mg PO TIDP PRN #30 cap 10/22/20 Cap] predniSONE [Prednisone 20mg 20 mg PO BID 4 Days #8 tab 10/22/20 Tab] Allergies Allergy/AdvReac Type Severity Reaction Status Date / Time cephalexin [From KEFLEX] Allergy Unknown Hives Verified 06/08/17 08:10 - Worker's Comp Is this a Worker's Comp case?: No [facility] History - Hepatitis A Screen Drug use history?: No High risk sexual behaviors?: No History of sexually transmitted infection?: No Currently employed?: No Childcare worker?: No Do you have indoor plumbing?: Yes Do you have electricity?: Yes Attestation statement:: This patient has been screened for Hepatitis A risk factors. I have reviewed the patient's past medical history: Yes Medical History: Denies:: Cancer, Diabetes Mellitus Type 1, Diabetes Mellitus Type 2, Hypertension, Internal Pacemaker, Lung Disease, MRSA, Seizures Other Medical History: Reports: Other (endometriosis, multiple laparoscopies) Laterality Cases: Right: Arthroscopy Shoulder, Bilateral: Tonsillectomy Other Surgeries: Yes: Appendectomy, Dilation and Curettage, Other (hysterectomy, ). No: Pacemaker Amputation: No Fractures: Yes (wrist) - Social History Smoking Status: Never smoker Alcohol Intake: never Occupational Status: other ROS Obtained: Yes All systems rev
== END 2020-10-22 19:16 | disposition home or self-care (01) ==
PROVIDERS: Emergency Provider Nurse Practitioner Family; PCP Internal Medicine
DX: J20.9 Acute bronchitis, unspecified (principal)

== ENCOUNTER 2020-11-17 16:08 | Emergency (ER) | payer BC, SELFPAY ==
[2020-11-17 16:09] VITALS: BP 143/81; PULSE 113; RESP 19; TEMP 36.8; O2SAT 96; BMI 26.6
--- NOTE | 2020-11-17 17:18 | HMH.EDUTC ---
[facility] [place] Disposition Clinical Impression: Migraine Qualifiers: Migraine type: unspecified Status migrainosus presence: without status migrainosus Intractability: not intractable Qualified Code(s): G43.909 - Migraine, unspecified, not intractable, without status migrainosus Disposition: Home, Self-Care Condition on Discharge: Good Referrals: Rahul Mars [Primary Care Provider] - Time of Disposition: 09:58 Medical Decision Making - [place] Inquiry Pt receiving controlled substance: No Vital Signs: 11/17/20 16:09 11/17/20 18:12 Temperature 98.3 F 98.3 F Temperature Source Oral Pulse Rate 113 H Pulse Rate [Left Radial] 113 H Respiratory Rate 19 19 Blood Pressure 143/81 H Blood Pressure [Right Arm] 143/81 H Blood Pressure Mean [Right Arm] 101 02 Sat by Pulse Oximetry 96 Oxygen Delivery Method Room Air Orders (Tests/Meds): ED MEDICATIONS Discontinued Medications Generic Name Dose Route Start Last Admin Trade Name Freq PRN Reason Stop Dose Admin Ketorolac Tromethamine 60 mg 11/17/20 17:47 11/17/20 17:56 Ketorolac 60mg/2ml Vial IM 11/17/20 17:48 60 mg ONCE ONE Administration Promethazine HCl 25 mg 11/17/20 17:47 11/17/20 17:56 Promethazine Hcl 25mg/Ml 1ml Vial IM 11/17/20 17:48 25 mg ONCE ONE Administration [facility] [place] HPI - General Stated complaint: migraine Time Seen by Provider: 11/17/20 17:18 Mode of Arrival: Ambulatory Source of Information: Patient Limitations: No Limitations Description of Symptoms (Recalled from Triage Doc. by RN): migraine since she woke up this morning HEENT Symptoms (Recalled from RN notes): Yes Resp Symptoms (Recalled from RN notes): No Skin Symptoms (Recalled from RN notes): No MS Symptoms (Recalled from RN notes): No Functional Status (Recalled from RN notes): na - History of Present Illness Provider Complaint: Woke up with migraine headache this am. Has taken Axert and Zomig without relief. Migraine is otherwise a typical migraine for her. She has photophobia, nausea. No fever. Onset (ago): day(s) (1) Location: head Relieving factors: none Exacerbating factors: none Associated symptoms: denies other symptoms Treatments prior to arrival: other (Axert, Davealjacky) - Related Data Home Medications Medication Instructions Recorded Confirmed estradioL [Estradiol (Twice 1 each TD DIRECTED 12/04/20 12/05/20 Weekly)] Allergies Allergy/AdvReac Type Severity Reaction Status Date / Time cephalexin [From KEFLEX] Allergy Unknown Hives Verified 06/08/17 08:10 - Worker's Comp Is this a Worker's Comp case?: No [facility] History - Hepatitis A Screen Drug use history?: No High risk sexual behaviors?: No History of sexually transmitted infection?: No Currently employed?: No Childcare worker?: No Do you have indoor plumbing?: Yes Do you have electricity?: Yes Attestation statement:: This patient has been screened for Hepatitis A risk factors. I have reviewed the patient's past medical history: Yes Medical History: Denies:: Cancer, Diabetes Mellitus Type 1, Diabetes Mellitus Type 2, Hypertension, Internal Pacemaker, Lung Disease, MRSA, Seizures Other Medical History: Reports: Other (endometriosis, multiple laparoscopies) Laterality Cases: Right: Arthroscopy Shoulder, Bilateral: Tonsillectomy Other Surgeries: Yes: Appendectomy, Dilation and Curettage, Other (hysterectomy, ). No: Pacemaker Amputation: No Fractures: Yes (wrist) - Social History Smoking Status: Never smoker Alcohol Intake: never Occupational Status: other ROS Obtained: Yes All systems reviewed & no additional complaints - Constitutional Constitutional: Reports headache(s) - Gastrointestinal Gastrointestingal: Reports: nausea Physical Exam - General General appearance: alert, in no apparent distress - Head Head exam: normocephalic - Eye Eye exam: Present: PERRL - ENT ENT exam: Present: normal oropharynx - Neck Neck exam: Present:
[2020-11-17 18:12] VITALS: BP 143/81; PULSE 113; RESP 19; TEMP 36.8; O2SAT 96
== END 2020-11-17 18:14 | disposition home or self-care (01) ==
PROVIDERS: Emergency Provider Physician Assistant; PCP Internal Medicine
DX: G43.909 Migraine, unspecified, not intractable, without status migrainosus (principal)
CPT/HCPCS: 96372; 99202; G0463

== ENCOUNTER 2020-12-03 23:50 | Emergency (ER) | payer BC, SELFPAY ==
[2020-12-04 00:10] VITALS: BP 128/98; PULSE 91; RESP 26; TEMP 36.9; O2SAT 98; BMI 25.8
--- NOTE | 2020-12-04 00:34 | XR_ITS ---
PROCEDURE INFORMATION: Exam: XR Chest Exam date and time: 12/04/2020 12:34 AM Age: 45 years old Clinical indication: Cough; Additional info: Cough with exposure to covid TECHNIQUE: Imaging protocol: XR of the chest. Views: 1 view. COMPARISON: CT ABDOMEN PELVIS W CON 08/10/2020 8:55 AM FINDINGS: Lungs: Limited inspiration. No evidence of acute infiltrate. There is no evidence of pulmonary vascular congestion. Pleural spaces: Unremarkable. No pleural effusion. No pneumothorax. Heart/Mediastinum: Unremarkable. No cardiomegaly. Bones/joints: Unremarkable. IMPRESSION: No acute findings.
[2020-12-04 00:37] LABS: Influenza A, PCR Not Detected (NotDetected); Influenza B, PCR Not Detected (NotDetected)
[2020-12-04 00:44] LABS: Alanine Aminotransferase 72 U/L (12-78); Albumin Level 4.5 g/dl (3.5-5.0); Albumin/Globulin Ratio 1.6 (1.1-1.8); Alkaline Phosphatase 110 U/L (38-126); Amylase 59 U/L (30-110); Anion Gap 15.1 mEq/L (5-15); Aspartate Amino Transferase 50 U/L (14-36); Bilirubin,Total 0.4 mg/dl (0.2-1.3); Blood Urea Nitrogen 9 mg/dl (7-17); Calcium 9.1 mg/dl (8.4-10.2); Carbon Dioxide 23 mmol/L (22.0-30.0); Chloride 104 mmol/L (98-107); Creatinine Clearance Estimated 171 mL/min (50-200); Estimated Glomerular Filt Rate 135 ml/min (>60); GFR (African American) 163 ML/MIN (>60); Globulin 2.9 g/dL (1.3-3.2); Glucose 133 mg/dl (74-100); Lipase 59 U/L (23-300); Potassium 3.1 mmoL/L (3.5-5.1); Sodium 139 mmol/L (136-145); Total Protein,Serum 7.4 g/dl (6.3-8.2)
[2020-12-04 00:47] LABS: Basophils # 0.1 K/mm3 (0-0.2); Basophils % 1.7 % (0.1-2.0); Eosinophils % 0.4 % (0.1-12.0); Hematocrit 46.2 % (37.0-47.0); Hemoglobin 14.5 g/dL (12.2-16.2); Lymphocytes # 2.2 K/mm3 (0.7-4.5); Lymphocytes % 37.7 % (10-50); Mean Corpuscular HGB Conc 31.4 g/dL (31.8-35.4); Mean Corpuscular Hemoglobin 25.9 pg (27.0-31.2); Mean Corpuscular Volume 82.3 fl (81-99); Mean Platelet Volume 8.5 fl (7.4-10.4); Monocytes # 0.7 K/mm3 (0.1-1.0); Monocytes % 12.8 % (1.7-9.3); Neutrophils # 2.7 K/mm3 (1.8-7.8); Neutrophils % 47.5 % (37.0-80.0); Platelet Count 281 K/mm3 (142-424); Red Blood Count 5.62 M/mm3 (4.20-5.40); Red Cell Distribution Width 14.5 % (11.5-17.5); White Blood Count 5.7 K/mm3 (4.8-10.8)
[2020-12-04 00:49] LABS: C-Reactive Protein 3.1 mg/L (0-4)
[2020-12-04 01:01] LABS: Coronavirus 19, PCR Detected (NotDetected)
--- NOTE | 2020-12-04 01:01 | PC.NURSE ---
Everett from Lab called with Positive COVID 19 results, Name and verified and results given to Dr Juan
[2020-12-04 01:03] LABS: Procalcitonin 0.054 ng/mL (0.0-2.0)
[2020-12-04 01:15] LABS: Erythrocyte Sedimentation Rate 14 mm/hr (0-20)
--- NOTE | 2020-12-04 01:21 | HMH.EDNVD ---
ED Disposition Clinical Impression: COVID-19 Disposition: Home, Self-Care Condition on Discharge: Good Instructions: DI for COVID-19 (Suspected or Confirmed ) Additional Instructions: fluids and see pcp for follow up Referrals: Rahul Mars [Primary Care Provider] - - Critical Care Critical Care Time: No Attestation: On 12/03/20, the high probability of a clinically significant, sudden or life threatening deterioration of the following system(s) required my full and direct attention, intervention and personal management. The time I documented below is in addition to time spent performing reported procedures but includes the following listed in this critical care notation. Medical Decision Making - Medical Records Medical records reviewed: Yes: I reviewed the patient's medical records. - [place] Inquiry Pt receiving controlled substance: No Vital Signs: 12/04/20 00:10 Temperature 98.5 F Temperature Source Oral Pulse Rate [Right] 91 H Respiratory Rate 26 H Blood Pressure [Right Arm] 128/98 H Blood Pressure Mean [Right Arm] 108 Blood Pressure Source [Right Arm] Automatic Cuff Blood Pressure Position [Right Arm] Sitting 02 Sat by Pulse Oximetry 98 Oxygen Delivery Method Room Air - Lab Data Lab results reviewed: Yes: I reviewed the patient's lab results. Lab Results 12/04/20 00:10: WBC 5.7, RBC 5.62 H, Hgb 14.5, Hct 46.2, MCV 82.3, MCH 25.9 L, MCHC 31.4 L, RDW 14.5, Plt Count 281, MPV 8.5, Neut % (Auto) 47.5, Lymph % (Auto) 37.7, [place] % (Auto) 12.8 H, Eos % (Auto) 0.4, Baso % (Auto) 1.7, Neut # (Auto) 2.7, Lymph # (Auto) 2.2, [place] # (Auto) 0.7, Eos # (Auto) 0.0, Baso # (Auto) 0.1, ESR 14 12/04/20 00:10: Sodium 139, Potassium 3.1 L, Chloride 104, Carbon Dioxide 23, Anion Gap 15.1 H, BUN 9, Creatinine 0.50 L, Estimated Creat Clear 171, Estimated GFR 135, Est GFR ( Amer) 163, Glucose 133 H, Calcium 9.1, Total Bilirubin 0.4, AST 50 H, ALT 72, Alkaline Phosphatase 110, C-Reactive Protein 3.1, Total Protein 7.4, Albumin 4.5, Globulin 2.9, Albumin/Globulin Ratio 1.6, Amylase 59, Lipase 59, Procalcitonin 0.054 12/04/20 00:10: SARS-CoV-2 (PCR) Detected A, Influenza A Untype (PCR) Not detected, Influenza Type B (PCR) Not detected Result diagrams: 12/04/20 00:10 12/04/20 00:10 Orders (Tests/Meds): ED MEDICATIONS Generic Name Dose Route Start Last Admin Trade Name Freq PRN Reason Stop Dose Admin Sodium Chloride 1,000 mls @ 999 mls/hr 12/04/20 00:45 12/04/20 00:36 Sod Chlor 0.9% 1000ml Bag IV 12/04/20 01:45 999 mls/hr .Q1H1M VIVIANA Administration Discontinued Medications Generic Name Dose Route Start Last Admin Trade Name Freq PRN Reason Stop Dose Admin Acetaminophen/Codeine Phosphate 1 zack 12/04/20 01:14 Acetaminophen 300mg W/Codeine 30mg Take Home Pack (6) PO 12/04/20 01:15 ONCE ONE Dexamethasone Sodium Phosphate 10 mg 12/04/20 00:33 12/04/20 00:35 Dexamethasone 4mg/Ml 1ml Vial IV 12/04/20 00:34 10 mg ONCE ONE Administration Ketorolac Tromethamine 30 mg 12/04/20 01:14 Ketorolac 30mg/Ml Vial IV 12/04/20 01:15 ONCE ONE Ondansetron HCl 4 mg 12/04/20 00:33 12/04/20 00:36 Ondansetron 4mg/2ml Vial IV 12/04/20 00:34 4 mg ONCE ONE Administration - Radiology Data #1 Image(s): Chest Image Reviewed: Yes I have reviewed radiologist's interpretation Preliminary Findings: Normal/NAD Medical Decision Narrative: has covid-19 and stable labs and vital signs at this time Nausea/Vomiting/Diarrhea HPI - General Chief complaint: Nausea/Vomiting/Diarrhea Stated complaint: vomiting,RESTREPO, sore throat Time Seen by Provider: 12/04/20 00:15 Mode of Arrival: Ambulatory Source of Information: Patient, Medical Record Limitations: No Limitations Description of Symptoms (Recalled from ER Triage Doc. by RN): Pt states her 2 YO daughter was positive 2 days ago for COVID 19 today the pt has had Non-productive cough, N/V and H/A. Pt has be
[2020-12-04 01:38] VITALS: BP 136/84; PULSE 84; RESP 18; TEMP 36.9; O2SAT 97
== END 2020-12-04 01:42 | disposition home or self-care (01) ==
PROVIDERS: Emergency Provider Emergency Medicine; PCP Internal Medicine
DX: U07.1 COVID-19 (principal); F17.210 Nicotine dependence, cigarettes, uncomplicated
CPT/HCPCS: 71045; 80053; 82150; 83690; 84145; 85025; 85651; 86140; 96365; 96375; 99283; J2405; U0003

== ENCOUNTER 2020-12-05 17:45 | Emergency (ER) | payer BC, SELFPAY ==
[2020-12-05 17:46] VITALS: BP 122/73; PULSE 64; RESP 18; TEMP 37; O2SAT 100; BMI 26.6
[2020-12-05 18:30] VITALS: BP 118/72; PULSE 62; O2SAT 96
--- NOTE | 2020-12-05 18:32 | XR_ITS ---
PROCEDURE INFORMATION: Exam: XR Chest Exam date and time: 12/05/2020 6:32 PM Age: 45 years old Clinical indication: Shortness of breath; Patient HX: aleja Burroughs , TYLERTacos TECHNIQUE: Imaging protocol: XR of the chest. Views: 1 view. COMPARISON: CR XR CHEST PORTABLE 12/04/2020 12:50 AM FINDINGS: Lungs: Mild left basilar atelectasis. Hypoventilatory exam. Pleural spaces: Unremarkable. No pleural effusion. No pneumothorax. Heart/Mediastinum: Unremarkable. No cardiomegaly. Bones/joints: Unremarkable. Other findings: Artifacts project over the patient. IMPRESSION: Mild left basilar atelectasis
--- NOTE | 2020-12-05 18:46 | ECG_ITS ---
APPROVED REPORT Exam: Resting ECG HR:63 bpm ECG Measurements Heart Rate 63 AXES ME 152 P 49 QRSd 80 QRS 82 QT 450 T 66 QTc 460 Conclusion Normal sinus rhythm Normal ECG Electronically signed by : Jerry Saul MD 12/06/2020 17:34:21
[2020-12-05 19:05] LABS: Basophils % 0.4 % (0.1-2.0); Eosinophils % 0.6 % (0.1-12.0); Hematocrit 43.1 % (37.0-47.0); Hemoglobin 13.6 g/dL (12.2-16.2); Lymphocytes # 1.5 K/mm3 (0.7-4.5); Lymphocytes % 21.6 % (10-50); Mean Corpuscular HGB Conc 31.5 g/dL (31.8-35.4); Mean Corpuscular Hemoglobin 26.2 pg (27.0-31.2); Mean Corpuscular Volume 83.3 fl (81-99); Mean Platelet Volume 8.1 fl (7.4-10.4); Monocytes # 0.4 K/mm3 (0.1-1.0); Monocytes % 5.1 % (1.7-9.3); Neutrophils # 5.1 K/mm3 (1.8-7.8); Neutrophils % 72.4 % (37.0-80.0); Platelet Count 265 K/mm3 (142-424); Red Blood Count 5.18 M/mm3 (4.20-5.40); Red Cell Distribution Width 14.5 % (11.5-17.5)
[2020-12-05 19:11] LABS: Alanine Aminotransferase 60 U/L (12-78); Albumin/Globulin Ratio 1.5 (1.1-1.8); Alkaline Phosphatase 86 U/L (38-126); Anion Gap 14.4 mEq/L (5-15); Aspartate Amino Transferase 31 U/L (14-36); Blood Urea Nitrogen 12 mg/dl (7-17); Calcium 8.4 mg/dl (8.4-10.2); Carbon Dioxide 25 mmol/L (22.0-30.0); Chloride 104 mmol/L (98-107); Creatinine Clearance Estimated 177 mL/min (50-200); Estimated Glomerular Filt Rate 135 ml/min (>60); GFR (African American) 163 ML/MIN (>60); Globulin 2.6 g/dL (1.3-3.2); Glucose 139 mg/dl (74-100); Lactic Acid 1.5 mmol/L (0.7-2.1); Potassium 3.4 mmoL/L (3.5-5.1); Sodium 140 mmol/L (136-145); Total Protein,Serum 6.6 g/dl (6.3-8.2)
[2020-12-05 19:20] LABS: Bilirubin,Total < 0.1 mg/dl (0.2-1.3)
--- NOTE | 2020-12-05 19:58 | PC.NURSE ---
pt vomiting and complaining of headache
[2020-12-05 20:10] LABS: C-Reactive Protein 1.8 mg/L (0-4)
--- NOTE | 2020-12-05 20:18 | PC.NURSE ---
dr vogel at bedside
--- NOTE | 2020-12-05 20:22 | HMH.EDHA ---
ED Disposition Clinical Impression: COVID-19 Disposition: Home, Self-Care Condition on Discharge: Good Instructions: DI for COVID-19 (Suspected or Confirmed ) Additional Instructions: fluids and call pcp in am Referrals: Provider,Referral, [Primary Care Provider] - - Critical Care Critical Care Time: No Attestation: On 12/05/20, the high probability of a clinically significant, sudden or life threatening deterioration of the following system(s) required my full and direct attention, intervention and personal management. The time I documented below is in addition to time spent performing reported procedures but includes the following listed in this critical care notation. Medical Decision Making - Medical Records Medical records reviewed: Yes: I reviewed the patient's medical records. - [place] Inquiry Pt receiving controlled substance: No Vital Signs: 12/05/20 17:46 12/05/20 18:30 Temperature 98.6 F Temperature Source Oral Pulse Rate 62 Pulse Rate [Left Radial] 64 Respiratory Rate 18 Blood Pressure 118/72 Blood Pressure [Right Arm] 122/73 Blood Pressure Mean [Right Arm] 89 Blood Pressure Source [Right Arm] Automatic Cuff Blood Pressure Position [Right Arm] Sitting 02 Sat by Pulse Oximetry 100 96 Oxygen Delivery Method Room Air - Lab Data Lab results reviewed: Yes: I reviewed the patient's lab results. Lab Results 12/05/20 18:47: WBC 7.0, RBC 5.18, Hgb 13.6, Hct 43.1, MCV 83.3, MCH 26.2 L, MCHC 31.5 L, RDW 14.5, Plt Count 265, MPV 8.1, Neut % (Auto) 72.4, Lymph % (Auto) 21.6, [place] % (Auto) 5.1, Eos % (Auto) 0.6, Baso % (Auto) 0.4, Neut # (Auto) 5.1, Lymph # (Auto) 1.5, [place] # (Auto) 0.4, Eos # (Auto) 0.0, Baso # (Auto) 0.0 12/05/20 18:47: Sodium 140, Potassium 3.4 L, Chloride 104, Carbon Dioxide 25, Anion Gap 14.4, BUN 12 D, Creatinine 0.50 L, Estimated Creat Clear 177, Estimated GFR 135, Est GFR ( Amer) 163, Glucose 139 H, Calcium 8.4, Total Bilirubin < 0.1 L, AST 31 D, ALT 60, Alkaline Phosphatase 86, Total Protein 6.6, Albumin 4.0, Globulin 2.6, Albumin/Globulin Ratio 1.5 12/05/20 18:47: Lactate 1.5 12/05/20 18:47: ESR 16 12/05/20 18:47: C-Reactive Protein 1.8 D, Procalcitonin 0.046 Result diagrams: 12/05/20 18:47 12/05/20 18:47 Orders (Tests/Meds): ED MEDICATIONS Generic Name Dose Route Start Last Admin Trade Name Freq PRN Reason Stop Dose Admin Sodium Chloride 1,000 mls @ 999 mls/hr 12/05/20 20:00 12/05/20 19:49 Sod Chlor 0.9% 1000ml Bag IV 12/05/20 21:00 999 mls/hr .Q1H1M VIVIANA Administration Sodium Chloride 8 ml 12/05/20 19:48 Sodium Chloride 0.9% 10ml Vial IV 01/04/21 19:47 NEEDED PRN dilute pepcid Discontinued Medications Generic Name Dose Route Start Last Admin Trade Name Freq PRN Reason Stop Dose Admin Famotidine 20 mg 12/05/20 19:48 12/05/20 19:49 Famotidine 20mg/2ml Vial IV 12/05/20 19:49 20 mg ONCE ONE Administration Ketorolac Tromethamine 30 mg 12/05/20 20:23 12/05/20 20:26 Ketorolac 30mg/Ml Vial IV 12/05/20 20:24 30 mg ONCE ONE Administration Ondansetron HCl 4 mg 12/05/20 19:48 12/05/20 19:49 Ondansetron 4mg/2ml Vial IV 12/05/20 19:49 4 mg ONCE ONE Administration Prochlorperazine Edisylate 10 mg 12/05/20 21:03 12/05/20 21:16 Prochlorperazine 10mg/2ml Vial IV 12/05/20 21:04 10 mg ONCE ONE Administration Promethazine HCl 25 mg 12/05/20 20:20 12/05/20 20:26 Promethazine Hcl 25mg/Ml 1ml Vial IV 12/05/20 20:21 25 mg ONCE ONE Administration Sodium Chloride 25 ml 12/05/20 20:20 12/05/20 20:26 Sodium Chloride 0.9% 25ml Bag IV 12/05/20 20:21 25 ml ONCE ONE Administration ORDERS Category Date Time Status Blood Culture Stat Micro 12/05/20 18:33 Received - Radiology Data #1 Image(s): Chest Image Reviewed: Yes I reviewed the patient's radiology image, Yes I have reviewed radiologist's interpretation Preliminary Findings: Normal/NAD
[2020-12-05 20:24] LABS: Procalcitonin 0.046 ng/mL (0.0-2.0)
[2020-12-05 20:27] LABS: Erythrocyte Sedimentation Rate 16 mm/hr (0-20)
[2020-12-05 23:00] VITALS: BP 116/78; PULSE 68; RESP 16; TEMP 37; O2SAT 98
== END 2020-12-05 23:06 | disposition home or self-care (01) ==
PROVIDERS: Emergency Medicine; Emergency Provider Emergency Medicine
DX: U07.1 COVID-19 (principal); R50.9 Fever, unspecified
CPT/HCPCS: 71045; 80053; 83605; 84145; 85025; 85651; 86140; 87040; 93005; 96365; 96375; 96376; 99284; J2405

== ENCOUNTER → 2020-12-13 12:10 | Outpatient (CLI) | payer BC, SELFPAY ==
[2020-12-13] VITALS (8 sets, daily range): BP systolic 97–119; BP diastolic 68–78; PULSE 73–89; RESP 20; TEMP 36.6; O2SAT 94–98
== END ==
PROVIDERS: PCP Internal Medicine; Visit Provider Internal Medicine
DX: U07.1 COVID-19 (principal)
CPT/HCPCS: 96365

== ENCOUNTER 2021-04-28 23:20 | Emergency (ER) | payer BC, SELFPAY ==
[2021-04-28 23:21] VITALS: BP 164/97; PULSE 90; RESP 16; TEMP 36.4; O2SAT 98; BMI 26.6
[2021-04-28 23:30] VITALS: BP 153/100; PULSE 81; O2SAT 95
[2021-04-28 23:32] VITALS: BP 143/103; PULSE 97; RESP 18; O2SAT 98
--- NOTE | 2021-04-28 23:37 | HMH.EDGENADL ---
ED Disposition Clinical Impression: Migraine Qualifiers: Migraine type: without aura Status migrainosus presence: without status migrainosus Intractability: not intractable Qualified Code(s): G43.009 - Migraine without aura, not intractable, without status migrainosus Disposition: Home, Self-Care Condition on Discharge: Good Additional Instructions: Please return to the ED with any new or worsening symptoms,, specifically alleges return if you have any confusion, seizure-like activity, severe nausea or vomiting, inability to eat or drink. Referrals: Rahul Mars [Primary Care Provider] - - Critical Care Critical Care Time: No Attestation: On , the high probability of a clinically significant, sudden or life threatening deterioration of the following system(s) required my full and direct attention, intervention and personal management. The time I documented below is in addition to time spent performing reported procedures but includes the following listed in this critical care notation. Medical Decision Making - Medical Records Medical records reviewed: Yes: I reviewed the patient's medical records. - [place] Inquiry Pt receiving controlled substance: No Vital Signs: 04/28/21 23:21 04/28/21 23:30 04/28/21 23:32 Temperature 97.6 F Temperature Source Oral Pulse Rate 81 97 H Pulse Rate [Right Radial] 90 Respiratory Rate 16 18 Blood Pressure 153/100 H 143/103 H Blood Pressure [Right Arm] 164/97 H Blood Pressure Mean [Right Arm] 119 Blood Pressure Source [Right Arm] Automatic Cuff Blood Pressure Position [Right Arm] Sitting 02 Sat by Pulse Oximetry 98 95 98 Oxygen Delivery Method Room Air Room Air Room Air 04/28/21 23:45 04/29/21 00:00 04/29/21 00:15 Temperature Temperature Source Pulse Rate 80 99 H 107 H Pulse Rate [Right Radial] Respiratory Rate 13 12 20 Blood Pressure 143/103 H 141/85 H 141/94 H Blood Pressure [Right Arm] Blood Pressure Mean [Right Arm] Blood Pressure Source [Right Arm] Blood Pressure Position [Right Arm] 02 Sat by Pulse Oximetry 96 98 98 Oxygen Delivery Method Room Air Room Air Room Air 04/29/21 00:30 Temperature Temperature Source Pulse Rate 107 H Pulse Rate [Right Radial] Respiratory Rate 12 Blood Pressure 135/82 Blood Pressure [Right Arm] Blood Pressure Mean [Right Arm] Blood Pressure Source [Right Arm] Blood Pressure Position [Right Arm] 02 Sat by Pulse Oximetry 94 L Oxygen Delivery Method Room Air Orders (Tests/Meds): ED MEDICATIONS Generic Name Dose Route Start Last Admin Trade Name Freq PRN Reason Stop Dose Admin Lactated Ringer's 1,000 mls @ 999 mls/hr 04/28/21 23:30 Lactated Ringer's 1000 Ml Bag IV 04/29/21 00:30 .Q1H1M VIVIANA Discontinued Medications Generic Name Dose Route Start Last Admin Trade Name Freq PRN Reason Stop Dose Admin Dexamethasone Sodium Phosphate 4 mg 04/28/21 23:28 04/28/21 23:49 Dexamethasone 4mg/Ml 1ml Vial IV 04/28/21 23:29 Not Given ONCE ONE Dexamethasone Sodium Phosphate 4 mg 04/28/21 23:48 04/28/21 23:49 Dexamethasone 4mg/Ml 5ml Mdv IV 04/28/21 23:49 4 mg ONCE ONE Administration Diphenhydramine HCl 25 mg 04/28/21 23:27 04/28/21 23:46 Diphenhydramine 50mg/Ml Vial IV 04/28/21 23:28 25 mg ONCE ONE Administration Magnesium Sulfate 2 gm/ Sodium 104 mls @ 100 mls/hr 04/28/21 23:27 04/28/21 23:49 Chloride IV 04/29/21 00:29 100 mls/hr ONCE ONE Administration Ketorolac Tromethamine 15 mg 04/28/21 23:28 04/28/21 23:47 Ketorolac 30mg/Ml Vial IV 04/28/21 23:29 15 mg ONCE ONE Administration Ondansetron HCl 4 mg 04/28/21 23:27 04/28/21 23:47 Ondansetron 4mg/2ml Vial IV 04/28/21 23:28 4 mg ONCE ONE Administration Prochlorperazine Edisylate 10 mg 04/28/21 23:27 04/28/21 23:47 Prochlorperazine 10mg/2ml Vial IV 04/28/21 23:28 10 mg ONCE ONE Administration Medical Decision Narrative: Patient
[2021-04-28 23:45] VITALS: BP 143/103; PULSE 80; RESP 13; O2SAT 96
[2021-04-29] VITALS: BP 141/85; PULSE 99; RESP 12; O2SAT 98
[2021-04-29 00:15] VITALS: BP 141/94; PULSE 107; RESP 20; O2SAT 98
[2021-04-29 00:30] VITALS: BP 135/82; PULSE 107; RESP 12; O2SAT 94
[2021-04-29 00:46] VITALS: BP 122/83; PULSE 107; RESP 13; O2SAT 95
[2021-04-29 00:56] VITALS: BP 122/83; PULSE 102; RESP 18; TEMP 36.7; O2SAT 93
== END 2021-04-29 01:00 | disposition home or self-care (01) ==
LOC: ER 23:42
PROVIDERS: Emergency Provider Student in an Organized Health Care Education/Training Program; PCP Internal Medicine
DX: G43.009 Migraine without aura, not intractable, without status migrainosus (principal)
CPT/HCPCS: 96365; 96367; 96375; 99282; J2405

== ENCOUNTER 2021-05-22 19:55 | Emergency (ER) | payer BC, SELFPAY ==
[2021-05-22 19:55] VITALS: BP 132/90; PULSE 103; RESP 18; TEMP 37.1; O2SAT 99; BMI 26.6
[2021-05-22 20:58] LABS: Basophils # 0.2 K/mm3 (0-0.2); Basophils % 1.9 % (0.1-2.0); Eosinophils # 0.1 K/mm3 (0.0-0.4); Eosinophils % 0.9 % (0.1-12.0); Hematocrit 46.6 % (37.0-47.0); Hemoglobin 14.9 g/dL (12.2-16.2); Lymphocytes # 2.7 K/mm3 (0.7-4.5); Mean Corpuscular Hemoglobin 26.1 pg (27.0-31.2); Mean Corpuscular Volume 81.6 fl (81-99); Mean Platelet Volume 8.4 fl (7.4-10.4); Monocytes # 0.5 K/mm3 (0.1-1.0); Monocytes % 6.1 % (1.7-9.3); Neutrophils # 4.9 K/mm3 (1.8-7.8); Platelet Count 342 K/mm3 (142-424); Red Cell Distribution Width 14.5 % (11.5-17.5); White Blood Count 8.3 K/mm3 (4.8-10.8)
[2021-05-22 20:59] LABS: Alanine Aminotransferase 71 U/L (12-78); Albumin/Globulin Ratio 1.7 (1.1-1.8); Alkaline Phosphatase 113 U/L (38-126); Anion Gap 13.6 mEq/L (5-15); Aspartate Amino Transferase 43 U/L (14-36); Bilirubin,Total 0.4 mg/dl (0.2-1.3); Blood Urea Nitrogen 8 mg/dl (7-17); Carbon Dioxide 26 mmol/L (22.0-30.0); Chloride 105 mmol/L (98-107); Creatinine Clearance Estimated 221 mL/min (50-200); Estimated Glomerular Filt Rate 174 ml/min (>60); GFR (African American) 211 ML/MIN (>60); Glucose 115 mg/dl (74-100); Potassium 3.6 mmoL/L (3.5-5.1); Sodium 141 mmol/L (136-145)
[2021-05-22 21:04] LABS: C-Reactive Protein 1.2 mg/L (0-4)
[2021-05-22 21:18] LABS: Procalcitonin 0.037 ng/mL (0.0-2.0)
--- NOTE | 2021-05-22 21:40 | HMH.EDHA ---
ED Disposition Clinical Impression: Headache Qualifiers: Headache type: unspecified Headache chronicity pattern: acute headache Intractability: not intractable Qualified Code(s): R51.9 - Headache, unspecified Disposition: Home, Self-Care Condition on Discharge: Good Instructions: DI for Migraine Additional Instructions: call pcp in am Referrals: Provider,Referral, [Primary Care Provider] - - Critical Care Critical Care Time: No Attestation: On 05/22/21, the high probability of a clinically significant, sudden or life threatening deterioration of the following system(s) required my full and direct attention, intervention and personal management. The time I documented below is in addition to time spent performing reported procedures but includes the following listed in this critical care notation. Medical Decision Making - Medical Records Medical records reviewed: Yes: I reviewed the patient's medical records. - [place] Inquiry Pt receiving controlled substance: No Vital Signs: 05/22/21 19:55 Temperature 98.7 F Temperature Source Oral Pulse Rate [Right] 103 H Respiratory Rate 18 Blood Pressure [Right Arm] 132/90 Blood Pressure Mean [Right Arm] 104 Blood Pressure Source [Right Arm] Manual Cuff/ Auscultation 02 Sat by Pulse Oximetry 99 Oxygen Delivery Method Room Air - Lab Data Lab results reviewed: Yes: I reviewed the patient's lab results. Lab Results 05/22/21 20:35: C-Reactive Protein 1.2, Procalcitonin 0.037 05/22/21 20:35: Sodium 141, Potassium 3.6, Chloride 105, Carbon Dioxide 26, Anion Gap 13.6, BUN 8, Creatinine 0.40 L, Estimated Creat Clear 221, Estimated GFR 174, Est GFR ( Amer) 211, Glucose 115 H, Calcium 10.0, Total Bilirubin 0.4, AST 43 H, ALT 71, Alkaline Phosphatase 113, Total Protein 8.0, Albumin 5.0, Globulin 3.0, Albumin/Globulin Ratio 1.7 05/22/21 20:38: WBC 8.3, RBC 5.70 H, Hgb 14.9, Hct 46.6, MCV 81.6, MCH 26.1 L, MCHC 32.0, RDW 14.5, Plt Count 342, MPV 8.4, Neut % (Auto) 59.0, Lymph % (Auto) 32.0, [place] % (Auto) 6.1, Eos % (Auto) 0.9, Baso % (Auto) 1.9, Neut # (Auto) 4.9, Lymph # (Auto) 2.7, [place] # (Auto) 0.5, Eos # (Auto) 0.1, Baso # (Auto) 0.2 Result diagrams: 05/22/21 20:38 05/22/21 20:35 Orders (Tests/Meds): ED MEDICATIONS Generic Name Dose Route Start Last Admin Trade Name Freq PRN Reason Stop Dose Admin Sodium Chloride 1,000 mls @ 999 mls/hr 05/22/21 20:45 05/22/21 21:04 Sod Chlor 0.9% 1000ml Bag IV 05/22/21 21:45 999 mls/hr .Q1H1M VIVIANA Administration Sodium Chloride 8 ml 05/22/21 20:38 Sodium Chloride 0.9% 10ml Vial IV 06/21/21 20:37 NEEDED PRN dilute pepcid Discontinued Medications Generic Name Dose Route Start Last Admin Trade Name Freq PRN Reason Stop Dose Admin Diphenhydramine HCl 50 mg 05/22/21 20:38 05/22/21 21:03 Diphenhydramine 50mg/Ml Vial IV 05/22/21 20:39 50 mg ONCE ONE Administration Famotidine 20 mg 05/22/21 20:38 05/22/21 21:03 Famotidine 20mg/2ml Vial IV 05/22/21 20:39 20 mg ONCE ONE Administration Ketorolac Tromethamine 30 mg 05/22/21 20:38 05/22/21 21:04 Ketorolac 30mg/Ml Vial IV 05/22/21 20:39 30 mg ONCE ONE Administration Methylprednisolone Sodium Succinate 125 mg 05/22/21 20:38 05/22/21 21:03 Methylprednisolone Sod Succ 125mg Vial IV 05/22/21 20:39 125 mg ONCE ONE Administration Promethazine HCl 25 mg 05/22/21 20:38 05/22/21 21:04 Promethazine Hcl 25mg/Ml 1ml Vial IV 05/22/21 20:39 25 mg ONCE ONE Administration Sodium Chloride 25 ml 05/22/21 20:38 05/22/21 21:04 Sodium Chloride 0.9% 25ml Bag IV 05/22/21 20:39 25 ml ONCE ONE Administration ORDERS Category Date Time Status Erythrocyte Sedimentation Rate Stat Lab 05/22/21 20:35 Received - Reevaluation(s) Time: 21:42 Reevaluation #1: improved Medical Decision Narrative: pt with headache with nausea - no focal changes - no rash and has reponded to meds
[2021-05-22 21:42] LABS: Erythrocyte Sedimentation Rate 4 mm/hr (0-20)
[2021-05-22 22:32] VITALS: BP 115/78; PULSE 82; RESP 17; TEMP 36.7; O2SAT 96
== END 2021-05-22 22:33 | disposition home or self-care (01) ==
PROVIDERS: Emergency Provider Emergency Medicine
DX: G43.009 Migraine without aura, not intractable, without status migrainosus (principal); F17.210 Nicotine dependence, cigarettes, uncomplicated
CPT/HCPCS: 80053; 84145; 85025; 85651; 86140; 96365; 96375; 99282

== ENCOUNTER → 2021-05-29 07:10 | Outpatient (CLI) | payer BC, SELFPAY ==
[2021-05-29 08:33] LABS: Albumin Level 4.4 g/dl (3.5-5.0); Chloride 104 mmol/L (98-107); Potassium 3.6 mmoL/L (3.5-5.1); Sodium 135 mmol/L (136-145)
[2021-05-29 08:35] LABS: Blood Urea Nitrogen 10 mg/dl (7-17); Estimated Glomerular Filt Rate 109 ml/min (>60); GFR (African American) 132 ML/MIN (>60)
[2021-05-29 08:36] LABS: Anion Gap 9.6 mEq/L (5-15); Calcium 8.7 mg/dl (8.4-10.2); Carbon Dioxide 25 mmol/L (22.0-30.0); Glucose 96 mg/dl (74-100); Phosphorous 4.2 mg/dl (2.5-4.5)
[2021-05-29 09:51] LABS: 25-OH Vitamin D, Total 24.7 ng/mL (30-100)
[2021-06-04 05:11] LABS: Tandem-R Ostase 13.6 ug/L (.)
[2021-06-06 22:07] LABS: C-Telopeptide Serum 124 pg/mL (.)
== END ==
PROVIDERS: Visit Provider Internal Medicine Nephrology
DX: M81.0 Age-related osteoporosis without current pathological fracture (principal)
CPT/HCPCS: 36415; 80069; 82306; 82523; 84080

== ENCOUNTER → 2021-06-10 07:17 | Outpatient (CLI) | payer BC, SELFPAY ==
[2021-06-10 08:29] LABS: Chloride 101 mmol/L (98-107); Potassium 3.9 mmoL/L (3.5-5.1); Sodium 134 mmol/L (136-145)
[2021-06-10 08:31] LABS: Blood Urea Nitrogen 13 mg/dl (7-17); Estimated Glomerular Filt Rate 135 ml/min (>60); GFR (African American) 163 ML/MIN (>60)
[2021-06-10 08:32] LABS: Alanine Aminotransferase 38 U/L (12-78); Albumin Level 4.3 g/dl (3.5-5.0); Albumin/Globulin Ratio 1.8 (1.1-1.8); Alkaline Phosphatase 89 U/L (38-126); Anion Gap 12.9 mEq/L (5-15); Aspartate Amino Transferase 34 U/L (14-36); Bilirubin,Total 0.4 mg/dl (0.2-1.3); Calcium 8.5 mg/dl (8.4-10.2); Carbon Dioxide 24 mmol/L (22.0-30.0); Globulin 2.4 g/dL (1.3-3.2); Glucose 102 mg/dl (74-100); Magnesium 1.5 mg/dl (1.6-2.3); Phosphorous 4.1 mg/dl (2.5-4.5); Total Protein,Serum 6.7 g/dl (6.3-8.2)
[2021-06-10 09:02] LABS: Thyroid Stimulating Hormone 1.49 uIU/mL (0.465-4.68)
[2021-06-10 09:27] LABS: Intact Parathyroid Hormone 40.6 pg/mL (7.5-53.5)
[2021-06-11 08:16] LABS: Prealbumin 28 mg/dL (12-34)
[2021-06-11 12:12] LABS: Calcium, Urine 10.7 mg/dL (Not Estab.); Creatinine, Urine 67.8 mg/dL (Not Estab.); Sodium, Urine 148 mmol/L (Not Estab.)
[2021-06-11 14:14] LABS: Albumin 3.9 g/dL (2.9-4.4); Alpha-1-Globulin 0.2 g/dL (0.0-0.4); Alpha-2-Globulin 0.8 g/dL (0.4-1.0); Gamma Globulin 0.8 g/dL (0.4-1.8); Protein, Total 6.8 g/dL (6.0-8.5)
[2021-06-11 16:28] LABS: Calcium, Urine 24hr 182 mg/24 hr (0-320); Creatinine, Ur 24hr 1153 mg/24 hr (800-1800); Sodium, Urine 252 mmol/24 hr (39-258)
[2021-06-12 14:43] LABS: Osteocalcin 9.9 ng/mL (.)
[2021-06-14 15:11] LABS: N-Telopeptide Cross-linked 7.6 nmol BCE/L (6.2-19.0)
[2021-07-17 19:31] LABS: Free Kappa Lt Chains 15.1; Free Lambda Lt Chains 15.4
== END ==
PROVIDERS: Visit Provider Physician Assistant Medical
DX: M81.0 Age-related osteoporosis without current pathological fracture (principal)
CPT/HCPCS: 36415; 80053; 82340; 82523; 82570; 83735; 83883; 83937; 83970; 84100; 84105; 84134; 84155; 84165; 84300; 84443

== ENCOUNTER 2021-06-12 22:25 | Emergency (ER) | payer BC, SELFPAY ==
[2021-06-12 22:27] VITALS: BP 127/92; PULSE 95; RESP 20; TEMP 36.7; O2SAT 98; BMI 26.6
[2021-06-12 23:25] LABS: Basophils # 0.3 K/mm3 (0-0.2); Basophils % 4.3 % (0.1-2.0); Eosinophils # 0.1 K/mm3 (0.0-0.4); Eosinophils % 1.3 % (0.1-12.0); Hematocrit 45.6 % (37.0-47.0); Hemoglobin 14.2 g/dL (12.2-16.2); Lymphocytes # 2.5 K/mm3 (0.7-4.5); Lymphocytes % 41.7 % (10-50); Mean Corpuscular HGB Conc 31.1 g/dL (31.8-35.4); Mean Corpuscular Hemoglobin 26.1 pg (27.0-31.2); Mean Platelet Volume 8.5 fl (7.4-10.4); Monocytes # 0.5 K/mm3 (0.1-1.0); Monocytes % 7.7 % (1.7-9.3); Neutrophils % 49.4 % (37.0-80.0); Platelet Count 282 K/mm3 (142-424); Red Blood Count 5.43 M/mm3 (4.20-5.40); Red Cell Distribution Width 14.8 % (11.5-17.5)
[2021-06-12 23:26] LABS: Chloride 100 mmol/L (98-107)
[2021-06-12 23:27] LABS: Potassium 3.8 mmoL/L (3.5-5.1); Sodium 135 mmol/L (136-145)
[2021-06-12 23:29] LABS: Alanine Aminotransferase 129 U/L (12-78); Aspartate Amino Transferase 99 U/L (14-36); Blood Urea Nitrogen 9 mg/dl (7-17); Creatinine Clearance Estimated 177 mL/min (50-200); Estimated Glomerular Filt Rate 135 ml/min (>60); GFR (African American) 163 ML/MIN (>60)
[2021-06-12 23:30] LABS: Albumin Level 4.7 g/dl (3.5-5.0); Albumin/Globulin Ratio 1.7 (1.1-1.8); Alkaline Phosphatase 124 U/L (38-126); Anion Gap 12.8 mEq/L (5-15); Bilirubin,Total 0.4 mg/dl (0.2-1.3); Calcium 8.7 mg/dl (8.4-10.2); Carbon Dioxide 26 mmol/L (22.0-30.0); Globulin 2.8 g/dL (1.3-3.2); Glucose 109 mg/dl (74-100); Total Protein,Serum 7.5 g/dl (6.3-8.2)
--- NOTE | 2021-06-12 23:49 | HMH.EDHA ---
ED Disposition Clinical Impression: Migraine Qualifiers: Migraine type: unspecified Status migrainosus presence: without status migrainosus Intractability: not intractable Qualified Code(s): G43.909 - Migraine, unspecified, not intractable, without status migrainosus Disposition: Home, Self-Care Condition on Discharge: Good Instructions: DI for Migraine Additional Instructions: fluids and see pcp for follow up Referrals: Rahul Mars [Primary Care Provider] - - Critical Care Critical Care Time: No Attestation: On 06/12/21, the high probability of a clinically significant, sudden or life threatening deterioration of the following system(s) required my full and direct attention, intervention and personal management. The time I documented below is in addition to time spent performing reported procedures but includes the following listed in this critical care notation. Medical Decision Making - Medical Records Medical records reviewed: Yes: I reviewed the patient's medical records. - [place] Inquiry Pt receiving controlled substance: No Vital Signs: 06/12/21 22:27 Temperature 98.1 F Temperature Source Oral Pulse Rate [Apical] 95 H Respiratory Rate 20 Blood Pressure [Right Arm] 127/92 H Blood Pressure Mean [Right Arm] 103 Blood Pressure Source [Right Arm] Automatic Cuff Blood Pressure Position [Right Arm] Sitting 02 Sat by Pulse Oximetry 98 Oxygen Delivery Method Room Air - Lab Data Lab results reviewed: Yes: I reviewed the patient's lab results. Lab Results 06/12/21 23:10: WBC 6.0, RBC 5.43 H, Hgb 14.2, Hct 45.6, MCV 84.0, MCH 26.1 L, MCHC 31.1 L, RDW 14.8, Plt Count 282, MPV 8.5, Neut % (Auto) 49.4, Lymph % (Auto) 41.7, [place] % (Auto) 7.7, Eos % (Auto) 1.3, Baso % (Auto) 4.3 H, Neut # (Auto) 3.0, Lymph # (Auto) 2.5, [place] # (Auto) 0.5, Eos # (Auto) 0.1, Baso # (Auto) 0.3 H 06/12/21 23:10: Sodium 135 L, Potassium 3.8, Chloride 100, Carbon Dioxide 26, Anion Gap 12.8, BUN 9 D, Creatinine 0.50 L, Estimated Creat Clear 177, Estimated GFR 135, Est GFR ( Amer) 163, Glucose 109 H, Calcium 8.7, Total Bilirubin 0.4, AST 99 H D, ALT 129 H D, Alkaline Phosphatase 124, Total Protein 7.5, Albumin 4.7, Globulin 2.8, Albumin/Globulin Ratio 1.7 Result diagrams: 06/12/21 23:10 06/12/21 23:10 Orders (Tests/Meds): ED MEDICATIONS Generic Name Dose Route Start Last Admin Trade Name Freq PRN Reason Stop Dose Admin Sodium Chloride 500 mls @ 999 mls/hr 06/12/21 23:00 06/12/21 22:53 Sod Chlor 0.9% 1000ml Bag IV 06/12/21 23:30 Not Given .Q31M VIVIANA Sodium Chloride 1,000 mls @ 999 mls/hr 06/12/21 23:00 06/12/21 23:14 Sod Chlor 0.9% 1000ml Bag IV 06/13/21 00:00 999 mls/hr .Q1H1M VIVIANA Administration Sodium Chloride 8 ml 06/12/21 22:46 Sodium Chloride 0.9% 10ml Vial IV 07/12/21 22:45 NEEDED PRN dilute pepcid Discontinued Medications Generic Name Dose Route Start Last Admin Trade Name Freq PRN Reason Stop Dose Admin Diphenhydramine HCl 50 mg 06/12/21 22:46 06/12/21 22:53 Diphenhydramine 50mg/Ml Vial IV 06/12/21 22:47 50 mg ONCE ONE Administration Famotidine 20 mg 06/12/21 22:46 06/12/21 22:53 Famotidine 20mg/2ml Vial IV 06/12/21 22:47 20 mg ONCE ONE Administration Ketorolac Tromethamine 30 mg 06/12/21 22:46 06/12/21 22:53 Ketorolac 30mg/Ml Vial IV 06/12/21 22:47 30 mg ONCE ONE Administration Methylprednisolone Sodium Succinate 125 mg 06/12/21 22:46 06/12/21 22:52 Methylprednisolone Sod Succ 125mg Vial IV 06/12/21 22:47 125 mg ONCE ONE Administration Promethazine HCl 25 mg 06/12/21 22:46 06/12/21 22:52 Promethazine Hcl 25mg/Ml 1ml Vial IV 06/12/21 22:47 25 mg ONCE ONE Administration Sodium Chloride 25 ml 06/12/21 22:46 06/12/21 22:53 Sodium Chloride 0.9% 25ml Bag IV 06/12/21 22:47 25 ml ONCE ONE Administration Medical Decision Narrative: acute migraine pillai and has stable exam and a
[2021-06-13 00:13] VITALS: BP 147/92; PULSE 88; RESP 17; TEMP 36.9; O2SAT 98
== END 2021-06-13 00:15 | disposition home or self-care (01) ==
PROVIDERS: Emergency Provider Emergency Medicine; PCP Internal Medicine
DX: G43.909 Migraine, unspecified, not intractable, without status migrainosus (principal); F17.210 Nicotine dependence, cigarettes, uncomplicated
CPT/HCPCS: 80053; 85025; 96365; 96375; 99284

== ENCOUNTER 2021-07-15 13:27 | Emergency (ER) | payer BC, SELFPAY ==
[2021-07-15 14:48] VITALS: BP 0/0; PULSE 0; RESP 0; TEMP -17.7; TEMP 0
== END 2021-07-15 14:48 | disposition left against medical advice (07) ==
LOC: UTC 13:36
PROVIDERS: Emergency Provider Nurse Practitioner Family; PCP Internal Medicine
DX: Z53.21 Procedure and treatment not carried out due to patient leaving prior to being seen by health care provider (principal)

== ENCOUNTER 2021-07-19 22:32 | Emergency (ER) | payer BC, SELFPAY ==
[2021-07-19 22:33] VITALS: BP 147/92; PULSE 97; RESP 16; TEMP 36.6; O2SAT 99; BMI 26.6
--- NOTE | 2021-07-19 22:50 | HMH.EDGENADL ---
ED Disposition Clinical Impression: Migraine Qualifiers: Migraine type: with aura Status migrainosus presence: with status migrainosus Intractability: not intractable Qualified Code(s): G43.101 - Migraine with aura, not intractable, with status migrainosus Disposition: Home, Self-Care Condition on Discharge: Good Referrals: Rahul Mars [Primary Care Provider] - - Critical Care Critical Care Time: No Attestation: On 07/19/21, the high probability of a clinically significant, sudden or life threatening deterioration of the following system(s) required my full and direct attention, intervention and personal management. The time I documented below is in addition to time spent performing reported procedures but includes the following listed in this critical care notation. Medical Decision Making - Medical Records Medical records reviewed: Yes: I reviewed the patient's medical records. - [place] Inquiry Pt receiving controlled substance: No Vital Signs: 07/19/21 22:33 07/19/21 23:00 07/19/21 23:30 Temperature 97.8 F Temperature Source Oral Pulse Rate 98 H 92 H Pulse Rate [Left Radial] 97 H Respiratory Rate 16 Blood Pressure 137/85 155/100 H Blood Pressure [Right Arm] 147/92 H Blood Pressure Mean 118 Blood Pressure Mean [Right Arm] 110 02 Sat by Pulse Oximetry 99 97 98 Oxygen Delivery Method Room Air Room Air - Lab Data Lab results reviewed: Yes: I reviewed the patient's lab results. Orders (Tests/Meds): ED MEDICATIONS Generic Name Dose Route Start Last Admin Trade Name Freq PRN Reason Stop Dose Admin Lactated Ringer's 1,000 mls @ 999 mls/hr 07/19/21 23:00 07/19/21 23:06 Lactated Ringer's 1000 Ml Bag IV 07/20/21 00:00 999 mls/hr .Q1H1M VIVIANA Administration Discontinued Medications Generic Name Dose Route Start Last Admin Trade Name Freq PRN Reason Stop Dose Admin Diphenhydramine HCl 25 mg 07/19/21 22:59 07/19/21 23:08 Diphenhydramine 50mg/Ml Vial IV 07/19/21 23:00 25 mg ONCE ONE Administration Ketorolac Tromethamine 15 mg 07/19/21 22:59 07/19/21 23:07 Ketorolac 30mg/Ml Vial IV 04/08/22 23:00 15 mg ONCE ONE Administration Prochlorperazine Edisylate 10 mg 07/19/21 22:58 07/19/21 23:07 Prochlorperazine 10mg/2ml Vial IV 07/19/21 22:59 10 mg ONCE ONE Administration Medical Decision Narrative: Lori is a 45-year-old female with a history of migraines presenting with a headache consistent with her migraines. On initial exam, she is hemodynamically stable nontoxic-appearing. No signs of meningismus on exam, exam is nonfocal. Differential diagnosis includes, but is not limited to, migraine, migraine with aura, status migrainosus, viral infection such as COVID-19, meningitis, other. She was treated with her migraine cocktail. On reassessment, she reports significant improvement. She wishes to go home. Given that this is consistent with patient's regular migraines and she has had improvement with a migraine cocktail, I believe her presentation is consistent with her migraine. She was discharged in a stable condition with return precautions. General Adult HPI - General Stated complaint: RESTREPO Time Seen by Provider: 07/19/21 22:50 - History of Present Illness HPI narrative: Lori is a 45yo the past medical history significant for migraines is presenting for chief complaint of migraine. She states her headache is 7 out of 10 in severity and associated with photophobia and seeing halos and nausea. Systemically for patient's migraine presentation. She has tried her abortive medication at home from her neurologist without significant relief. Headache started at 7 PM this evening. Patient denies any infectious symptoms such as fever, congestion, cough, shortness of breath, chest pain. She vomited 1 time prior to presentation to the emergency department. - Related Data Home Medications Medication Instructions Recorded
[2021-07-19 23:00] VITALS: BP 137/85; PULSE 98; O2SAT 97
[2021-07-19 23:30] VITALS: BP 155/100; PULSE 92; O2SAT 98
--- NOTE | 2021-07-19 23:54 | PC.NURSE ---
PT REPORTS THAT HER NAUSEA HAS IMPROVED. PT REQUESTS TO LEAVE. MADE AWARE.
[2021-07-20 00:34] VITALS: BP 138/76; PULSE 76; RESP 16; TEMP 36.3; O2SAT 99
== END 2021-07-20 00:36 | disposition home or self-care (01) ==
PROVIDERS: Emergency Provider Emergency Medicine; PCP Internal Medicine
DX: G43.101 Migraine with aura, not intractable, with status migrainosus (principal)
CPT/HCPCS: 96360; 96375; 99284

== ENCOUNTER 2021-08-30 15:48 | Emergency (ER) | payer BC, SELFPAY ==
[2021-08-30 16:00] VITALS: BP 131/91; PULSE 93; RESP 17; TEMP 36.8; O2SAT 97; BMI 26.6
--- NOTE | 2021-08-30 16:15 | HMH.EDUTC ---
[facility] [place] Clinical Impression: Migraine Qualifiers: Migraine type: unspecified Status migrainosus presence: without status migrainosus Intractability: not intractable Qualified Code(s): G43.909 - Migraine, unspecified, not intractable, without status migrainosus Disposition: Home, Self-Care Condition on Discharge: Good Instructions: Migraine -- Adult, Migraine -- Child Additional Instructions: Go home and sleep off remainder of migraine headache Make sure to drink plenty of fluids Return if needed Straight to ER if any life threatening symptoms Referrals: Rahul Mars [Primary Care Provider] - Medical Decision Making - [place] Inquiry Pt receiving controlled substance: No [place] was queried for this patient: No Vital Signs: 08/30/21 16:00 08/30/21 16:38 Temperature 98.3 F 98.3 F Temperature Source Oral Pulse Rate 93 H Pulse Rate [Right Brachial] 93 H Respiratory Rate 17 17 Blood Pressure 131/91 H Blood Pressure [Right Arm] 131/91 H Blood Pressure Mean [Right Arm] 104 Blood Pressure Source [Right Arm] Automatic Cuff Blood Pressure Position [Right Arm] Sitting 02 Sat by Pulse Oximetry 97 Oxygen Delivery Method Room Air Orders (Tests/Meds): ED MEDICATIONS Discontinued Medications Generic Name Dose Route Start Last Admin Trade Name Freq PRN Reason Stop Dose Admin Diphenhydramine HCl 25 mg 08/30/21 16:20 08/30/21 16:30 Diphenhydramine 50mg/Ml Vial IM 08/30/21 16:21 25 mg ONCE ONE Administration Ketorolac Tromethamine 60 mg 08/30/21 16:20 08/30/21 16:30 Ketorolac 60mg/2ml Vial IM 08/30/21 16:21 60 mg ONCE ONE Administration [facility] [place] H[place] - General Stated complaint: headache Time Seen by Provider: 08/30/21 16:17 Mode of Arrival: Ambulatory Source of Information: Patient Limitations: No Limitations Description of Symptoms (Recalled from Triage Doc. by RN): PATIENT C/O HEADACHE SINCE THIS MORNING. HAS HISTORY OF MIGRAINES HEENT Symptoms (Recalled from RN notes): Yes Resp Symptoms (Recalled from RN notes): No Skin Symptoms (Recalled from RN notes): No MS Symptoms (Recalled from RN notes): No Functional Status (Recalled from RN notes): WNL - History of Present Illness Provider Complaint: Patient states that she has a history of migraine headaches States that this morning she started having headache and has took her Ubrelvy and it hasnt helped much States that sometimes she has to come in and get shots to help it go away - Related Data Home Medications Medication Instructions Recorded Confirmed estradioL [Estradiol (Twice 1 each TD DIRECTED 12/04/20 08/30/21 Weekly)] Allergies Allergy/AdvReac Type Severity Reaction Status Date / Time cephalexin [From KEFLEX] Allergy Unknown Hives Verified 06/08/17 08:10 - Worker's Comp Is this a Worker's Comp case?: No [facility] History - Hepatitis A Screen Attestation statement:: This patient has been screened for Hepatitis A risk factors. I have reviewed the patient's past medical history: Yes Medical History: Denies:: Cancer, Diabetes Mellitus Type 1, Diabetes Mellitus Type 2, Hypertension, Internal Pacemaker, Lung Disease, MRSA, Seizures Other Medical History: Reports: Other (endometriosis, multiple laparoscopies) Laterality Cases: Right: Arthroscopy Shoulder, Bilateral: Myringotomy (Ear Tubes), Tonsillectomy Other Surgeries: Yes: Appendectomy, Dilation and Curettage, Other (hysterectomy, ). No: Pacemaker Amputation: No Fractures: Yes (wrist) - Social History Smoking Status: Current every day smoker Tobacco Type: cigarettes # Packs/Day (cigarettes): 1 Alcohol Intake: never Occupational Status: other ROS Obtained: Yes All systems reviewed & no additional complaints, Yes Systems reviewed as appropriate & no additional complaints - Constitutional Constitutional: Reports system reviewed and no additional complaints, except as docu, Denies body ache, Denies fatigue, Denies fever(s)
[2021-08-30 16:38] VITALS: BP 131/91; PULSE 93; RESP 17; TEMP 36.8; O2SAT 97
== END 2021-08-30 16:54 | disposition home or self-care (01) ==
PROVIDERS: Emergency Provider Nurse Practitioner; PCP Internal Medicine
DX: G43.909 Migraine, unspecified, not intractable, without status migrainosus (principal); F17.210 Nicotine dependence, cigarettes, uncomplicated
CPT/HCPCS: 96372; 99212; G0463

== ENCOUNTER 2021-11-12 16:50 | Emergency (ER) | payer BC, SELFPAY ==
[2021-11-12 17:01] VITALS: BP 144/97; PULSE 81; RESP 19; TEMP 37.1; O2SAT 96; BMI 26.9
--- NOTE | 2021-11-12 17:06 | HMH.EDUTC ---
[facility] [place] Clinical Impression: Bronchitis Sinusitis Qualifiers: Sinusitis location: unspecified location Chronicity: unspecified Qualified Code(s): J32.9 - Chronic sinusitis, unspecified Disposition: Home, Self-Care Condition on Discharge: Good Instructions: Sinusitis, DI for Sinusitis Additional Instructions: ? Start antibiotic today. Be sure to complete entire prescription even if feeling better ? Monitor temp. Tylenol every 4 hours as needed and / or ibuprofen every 6 hours as needed ( As long as your primary care physician has told you that it ok to take both. For fever/aches/pains ER if no less than 101 despite Tylenol or Motrin ? Humidifier/vaporizer or hot steamy shower ? Inhaler every 4-6 hours as needed like we discussed. If unsure how to use it, ask pharmacist to demonstrate how. Should help open airways and improve cough, wheezing, and shortness of breath ? Mucinex during the day for your cough and cough suppressant only at night. Be sure to drink lots of water. Insurance may not cover a prescriptions for mucinex. Might be cheaper to get 400mg tablets and take 2 tablet in the morning, mid-day and evening with lots of water. *Start steroid today. Helps with inflammation therefore, cough and wheezing. Follow directions on the package. Reviewed side effects. Patient reports taking them before. Follow up IMMEDIATELY for new or worsening of symptoms OR no noticeable improvement over the next 48-72 hours. 911 immediately for any life threatening symptoms such as chest pain or difficulty breathing Prescriptions: Albuterol Sulfate [Proventil-HFA 90mcg/puff Inh] 1 - 2 puffs IH Q6HP PRN #1 each PRN Reason: Shortness Of Breath Transmission Status: Pending to [facility] # methylPREDNISolone [Medrol 4mg tab] 4 mg PO DIRECTED #21 tab Transmission Status: Pending to [facility] # guaiFENesin [Mucinex 600mg tablet] 1 - 2 tab PO BID #20 tab Transmission Status: Pending to [facility] # Azithromycin [Z-Davonte 250mg Tab] 250 mg PO DIRECTED #6 tab Transmission Status: Pending to [facility] # Referrals: Rahul Mars [Primary Care Provider] - As needed Time of Disposition: 17:17 Medical Decision Making - [place] Inquiry Pt receiving controlled substance: No [place] was queried for this patient: No Vital Signs: 11/12/21 17:01 Temperature 98.7 F Temperature Source Oral Pulse Rate [Right Brachial] 81 Respiratory Rate 19 Blood Pressure [Right Arm] 144/97 H Blood Pressure Mean [Right Arm] 112 Blood Pressure Source [Right Arm] Automatic Cuff Blood Pressure Position [Right Arm] Sitting 02 Sat by Pulse Oximetry 96 [facility] UTC HPI - General Stated complaint: covid test, cough,SOA,aaron Time Seen by Provider: 11/12/21 17:06 Description of Symptoms (Recalled from Triage Doc. by RN): PT C/O CHEST CONGESTION AND COUGHING UP DARK GREEN MUCOUS X'S 4 DAYS HEENT Symptoms (Recalled from RN notes): No Resp Symptoms (Recalled from RN notes): Yes Skin Symptoms (Recalled from RN notes): No MS Symptoms (Recalled from RN notes): No Functional Status (Recalled from RN notes): WNL - History of Present Illness Provider Complaint: Patient states that she took an at home COVID test and it was negative States that she has been having sinus congestion and pressure along with cough and at times she is coughing up greenish colored mucous States that she feels like she is trying to get bronchitis - Related Data Home Medications Medication Instructions Recorded Confirmed estradioL [Estradiol (Twice 1 each TD DIRECTED 12/04/20 08/30/21 Weekly)] Previous Rx's Medication Instructions Recorded Albuterol Sulfate [Proventil-HFA 1 - 2 puffs IH Q6HP PRN #1 each 11/12/21 90mcg/puff Inh] Azithromycin [Z-Davonte 250mg Tab] 250 mg PO DIRECTED #6 tab 11/12/21 guaiFENesin [Mucinex 600mg tablet] 1 - 2 tab PO BID #20 tab 11/12/21 methylPREDNISolone [Med
[2021-11-12 17:15] VITALS: BP 144/97; PULSE 81; RESP 19; TEMP 37.1; O2SAT 96
== END 2021-11-12 17:24 | disposition home or self-care (01) ==
PROVIDERS: Emergency Provider Nurse Practitioner; PCP Internal Medicine
DX: J40 Bronchitis, not specified as acute or chronic (principal); J32.9 Chronic sinusitis, unspecified
CPT/HCPCS: 99212; G0463

== ENCOUNTER 2021-12-10 14:46 | Emergency (ER) | payer BC, SELFPAY ==
[2021-12-10 15:29] VITALS: BP 0/0; PULSE 0; RESP 0; TEMP -17.7; TEMP 0
== END 2021-12-10 15:30 | disposition left against medical advice (07) ==
LOC: UTC 14:48
PROVIDERS: Emergency Provider Nurse Practitioner; PCP Internal Medicine
DX: Z53.21 Procedure and treatment not carried out due to patient leaving prior to being seen by health care provider (principal)

== ENCOUNTER 2021-12-10 21:57 | Emergency (ER) | payer BC, SELFPAY ==
[2021-12-10 21:59] VITALS: BP 158/85; PULSE 90; RESP 16; TEMP 36.8; O2SAT 98; BMI 26.6
[2021-12-10 22:35] LABS: Alanine Aminotransferase 69 U/L (12-78); Albumin Level 4.6 g/dl (3.5-5.0); Albumin/Globulin Ratio 1.6 (1.1-1.8); Alkaline Phosphatase 156 U/L (38-126); Aspartate Amino Transferase 57 U/L (14-36); Blood Urea Nitrogen 14 mg/dl (7-17); Calcium 9.4 mg/dl (8.4-10.2); Carbon Dioxide 22 mmol/L (22.0-30.0); Chloride 107 mmol/L (98-107); Creatinine Clearance Estimated 125 mL/min (50-200); Estimated Glomerular Filt Rate 91 ml/min (>60); GFR (African American) 110 ML/MIN (>60); Globulin 2.9 g/dL (1.3-3.2); Glucose 117 mg/dl (74-100); Sodium 140 mmol/L (136-145); Total Protein,Serum 7.5 g/dl (6.3-8.2)
[2021-12-10 22:37] LABS: Bilirubin,Total < 0.1 mg/dl (0.2-1.3); HCG Qualitative, Serum Negative (Negative)
--- NOTE | 2021-12-10 22:37 | XR_ITS ---
PROCEDURE INFORMATION: Exam: XR Chest Exam date and time: 12/10/2021 10:52 PM Age: 46 years old Clinical indication: Condition or disease; Lung condition and disease; Pneumonia; Additional info: Covid + TECHNIQUE: Imaging protocol: Radiologic exam of the chest. Views: 2 views. COMPARISON: CR XR CHEST PORTABLE 12/05/2020 6:47 PM FINDINGS: Lungs: Unremarkable. No consolidation. Pleural spaces: Unremarkable. No pleural effusion. No pneumothorax. Heart/Mediastinum: Unremarkable. No cardiomegaly. Bones/joints: Unremarkable. IMPRESSION: No acute findings.
--- NOTE | 2021-12-10 22:37 | PC.NURSE ---
Kirstin in lab called critical potassium of 3.0. notified
[2021-12-10 22:41] LABS: C-Reactive Protein 6.5 mg/L (0-4)
[2021-12-10 22:48] LABS: Microscopic, Urine URINE MICROSCOPIC (MICROSCOPIC)
[2021-12-10 22:49] LABS: Basophils # 0.2 K/mm3 (0-0.2); Basophils % 4.1 % (0.1-2.0); Eosinophils % 0.8 % (0.1-12.0); Hematocrit 45.1 % (37.0-47.0); Hemoglobin 14.5 g/dL (12.2-16.2); Lymphocytes # 1.9 K/mm3 (0.7-4.5); Lymphocytes % 33.9 % (10-50); Mean Corpuscular HGB Conc 32.2 g/dL (31.8-35.4); Mean Corpuscular Hemoglobin 26.3 pg (27.0-31.2); Mean Corpuscular Volume 81.7 fl (81-99); Mean Platelet Volume 8.8 fl (7.4-10.4); Monocytes # 0.6 K/mm3 (0.1-1.0); Monocytes % 11.3 % (1.7-9.3); Neutrophils # 2.7 K/mm3 (1.8-7.8); Platelet Count 257 K/mm3 (142-424); Red Blood Count 5.52 M/mm3 (4.20-5.40); Red Cell Distribution Width 14.7 % (11.5-17.5); White Blood Count 5.5 K/mm3 (4.8-10.8)
[2021-12-10 22:57] LABS: Erythrocyte Sedimentation Rate 14 mm/hr (0-20)
[2021-12-10 22:58] LABS: Appearance,Urine SL CLOUDY (Clear); Blood, Urine Negative (Negative); Color,Urine YELLOW (Yellow); Glucose,Urine (UA) Negative (Negative); Ketones,Urine 1+ (Negative); Leukocyte Esterase,Urine Negative (Negative); Nitrate,Urine Negative (Negative); Protein,Urine TRACE (Negative); Specific Gravity, Urine 1.025 (1.005-1.030)
--- NOTE | 2021-12-10 23:03 | PC.NURSE ---
patient to radiology
[2021-12-10 23:13] LABS: Bilirubin,Urine 1+ (Negative)
[2021-12-10 23:15] VITALS: PULSE 64; RESP 16; O2SAT 95
[2021-12-10 23:15] LABS: Bacteria,Urine Trace /lpf; Mucus,Urine 2+ /lpf
[2021-12-11 00:30] LABS: Influenza A, PCR Not Detected (NotDetected); Influenza B, PCR Not Detected (NotDetected)
[2021-12-11 00:56] LABS: Coronavirus 19, PCR Detected (NotDetected)
--- NOTE | 2021-12-11 01:01 | HMH.EDURI ---
Discharge Plan Disposition Chief Complaint: Upper Respiratory Infection Prescriptions Prescriptions: No Action estradiol 1 EACH patch semiweekly 1 each TD DIRECTED azithromycin 250 MG tablet 250 mg PO DIRECTED Qty: 6 0RF Rx Instructions: Take two (2) tablets on day #1, then one (1) tablet day #2 thru #5 methylprednisolone 4 MG tablet 4 mg PO DIRECTED Qty: 21 0RF Rx Instructions: Take as directed on package instructions albuterol sulfate 200 PUFF HFA aerosol inhaler 1 - 2 puffs IH Q6HP PRN (Reason: Shortness Of Breath) Qty: 1 0RF guaifenesin 600 MG tablet extended release 12hr 1 - 2 tab PO BID Qty: 20 0RF Referrals Follow up/Referrals: Rahul Mars [Primary Care Provider] - See instructions Clinical Impressions Clinical Impression: COVID-19 Instructions Patient Instructions: DI for COVID-19 (Suspected or Confirmed ) Discharge ED Provider: Kai Juan URI/Sore Throat HPI General Chief Complaint: Upper Respiratory Infection Stated Complaint: covid+ vomiting RESTREPO Time Seen by Provider: 12/11/21 01:01 Mode of Arrival: Ambulatory Source of Information: Patient and Medical Record Limitations: No Limitations Description of Symptoms (Recalled from ER Triage Doc. by RN): pt tested positive for covid on at home test today. pt c/o RESTREPO, v/d and body aches that started today. History of Present Illness HPI Narrative: pt with restrepo and achey with possible covid-19 MD Complaint: fever and cough Onset (ago): hour(s) Duration: intermittent Severity: moderate Able to tolerate fluids by mouth: Yes Associated symptoms: denies other symptoms Treatments prior to arrival: none Related Data Home Medications Medication Instructions Recorded Confirmed estradiol 0.025 mg/24 hr 1 each TD DIRECTED . 12/04/20 08/30/21 semiweekly transdermal patch Previous Rx's Medication Instructions Recorded albuterol sulfate 90 mcg/actuation 1 - 2 puffs inhalation Q6HP PRN 11/12/21 aerosol inhaler Shortness Of Breath #1 ea azithromycin 250 mg tablet 250 mg PO DIRECTED #6 tabs 11/12/21 guaifenesin 600 mg tablet, 1 - 2 tab PO BID #20 tabs 11/12/21 extended release 12 hr methylprednisolone 4 mg tablet 4 mg PO DIRECTED #21 tabs 11/12/21 Allergies Allergy/AdvReac Type Severity Reaction Status Date / Time cephalexin [From KEFLEX] Allergy Unknown Hives Verified 06/08/17 08:10 [facility] Medical History (Updated 12/11/21 @ 01:48 by Kai Juan MD) Migraine Social History Smoking Status: Current every day smoker tobacco type: cigarettes packs per day: 1 second hand exposure: No alcohol intake: never current occupational status: employed household members: family ROS Obtained: Yes All systems reviewed & no additional complaints except as documented Physical Exam General General appearance: alert Head Head exam: normocephalic Eye Eye exam: Present PERRL and EOMI; Absent scleral icterus ENT ENT exam: Present normal oropharynx and mucous membranes moist Neck Neck exam: Present trachea midline Respiratory Respiratory exam: Present normal lung sounds bilaterally Cardiovascular Cardiovascular exam: Present regular rate Abdominal Exam Abdominal exam: Present soft Extremities Exam Extremities exam: Present full ROM Neurological Exam Neurological exam: Present alert, oriented X3 and CN II-XII intact Skin Skin exam: Absent rash Medical Decision Making Medical Records Medical records reviewed: Yes I reviewed the patient's medical records. [place] Inquiry Pt receiving controlled substance: No Vital Signs: 12/10/21 21:59 12/10/21 23:15 Temperature 98.3 F Temperature Source Oral Pulse Rate 64 Pulse Rate [Right] 90 Respiratory Rate 16 16 Blood Pressure [Right Arm] 158/85 H Blood Pressure Mean [Right Arm] 109 02 Sat by Pulse Oximetry 98 95 Lab Data Lab results reviewed: Yes I reviewed the patient's lab results. Kendy
[2021-12-11 01:53] VITALS: BP 134/74; PULSE 64; RESP 16; TEMP 36.8; O2SAT 97
== END 2021-12-11 01:59 | disposition home or self-care (01) ==
PROVIDERS: Emergency Provider Emergency Medicine; PCP Internal Medicine
DX: U07.1 COVID-19 (principal); Z88.1 Allergy status to other antibiotic agents; Z79.899 Other long term (current) drug therapy; Z72.0 Tobacco use; G43.909 Migraine, unspecified, not intractable, without status migrainosus
CPT/HCPCS: 71046; 80053; 81001; 84703; 85025; 85651; 86140; 96365; 96375; 99285; C9803; J2405; U0003; U0005

== ENCOUNTER 2021-12-14 13:38 | Emergency (ER) | payer BC, SELFPAY ==
[2021-12-14 13:50] VITALS: BP 141/97; PULSE 102; RESP 22; TEMP 36.6; O2SAT 97; BMI 26.4
--- NOTE | 2021-12-14 13:56 | XR_ITS ---
PROCEDURE INFORMATION: Exam: XR Chest Exam date and time: 12/14/2021 1:53 PM Age: 46 years old Clinical indication: Cough and shortness of breath; Additional info: Covid + chest congestion TECHNIQUE: Imaging protocol: Radiologic exam of the chest. Views: 2 views. COMPARISON: CR XR CHEST 2V 12/10/2021 10:52 PM FINDINGS: Lungs: Unremarkable. No consolidation. Pleural spaces: Unremarkable. No pleural effusion. No pneumothorax. Heart/Mediastinum: Unremarkable. No cardiomegaly. Bones/joints: Unremarkable. IMPRESSION: No acute findings.
--- NOTE | 2021-12-14 14:18 | EXP.UTC ---
Discharge Plan Disposition Patient Disposition: Home, Self-Care Condition: Good Prescriptions Prescriptions: New methylprednisolone [Medrol (Davonte)] 4 mg tablets,dose pack 4 mg PO DIRECTED 6 Days Qty: 6 0RF Rx Instructions: 4 mg orally ;Medrol dose taper davonte azithromycin [Zithromax Z-Davonte] 250 mg tablet See Rx Instructions .ROUTE .COMPLEX Qty: 6 0RF Rx Instructions: For 250 mg dose pack: take 500 mg today (day 1), then 250 mg for 4 days (days 2-5) No Action estradiol 1 EACH patch semiweekly 1 each TD DIRECTED azithromycin 250 MG tablet 250 mg PO DIRECTED Qty: 6 0RF Rx Instructions: Take two (2) tablets on day #1, then one (1) tablet day #2 thru #5 methylprednisolone 4 MG tablet 4 mg PO DIRECTED Qty: 21 0RF Rx Instructions: Take as directed on package instructions albuterol sulfate 200 PUFF HFA aerosol inhaler 1 - 2 puffs IH Q6HP PRN (Reason: Shortness Of Breath) Qty: 1 0RF guaifenesin 600 MG tablet extended release 12hr 1 - 2 tab PO BID Qty: 20 0RF Referrals Follow up/Referrals: Rahul Mars [Primary Care Provider] - See instructions Activity Restrictions/Add. Instructions Additional Instructions/Restrictions: Take medication as prescribed. Increase fluids and rest. Follow up with PCP if symptoms persist or worsen. Clinical Impressions Clinical Impression: Upper respiratory infection Discharge ED Provider: Lori Ling [facility] [place] General Stated complaint: covid +, congestion in chest Mode of Arrival: Ambulatory Source of Information: Patient Limitations: No Limitations Time Seen by Provider: 12/14/21 14:19 Description of Symptoms (Recalled from Triage Doc. by RN): PATIENT C/O COUGH, SOA, AND BURNING IN CHEST. REPORTS A POSITIVE COVID TEST ON THURSDAY HEENT Symptoms (Recalled from RN notes): No Resp Symptoms (Recalled from RN notes): Yes Skin Symptoms (Recalled from RN notes): No MS Symptoms (Recalled from RN notes): No Functional Status (Recalled from RN notes): WNL History of Present Illness Provider Complaint: Pt relates that she tested positive for Covid on Thursday and now has chest burning and feels short of air at times. She states she has been checking her sats at home and they have remained in the high 90s. She has not taken anything for her symptoms. Related Data Home Medications Medication Instructions Recorded Confirmed estradiol 0.025 mg/24 hr 1 each TD DIRECTED . 12/04/20 08/30/21 semiweekly transdermal patch Previous Rx's Medication Instructions Recorded albuterol sulfate 90 mcg/actuation 1 - 2 puffs inhalation Q6HP PRN 11/12/21 aerosol inhaler Shortness Of Breath #1 ea azithromycin 250 mg tablet 250 mg PO DIRECTED #6 tabs 11/12/21 guaifenesin 600 mg tablet, 1 - 2 tab PO BID #20 tabs 11/12/21 extended release 12 hr methylprednisolone 4 mg tablet 4 mg PO DIRECTED #21 tabs 11/12/21 azithromycin 250 mg tablet See Rx Instructions PO .COMPLEX #6 12/14/21 (Zithromax Z-Davonte) tabs methylprednisolone 4 mg tablets in 4 mg PO DIRECTED 6 days #6 tabs 12/14/21 a dose pack (Medrol (Davonte)) Allergies Allergy/AdvReac Type Severity Reaction Status Date / Time cephalexin [From KEFLEX] Allergy Unknown Hives Verified 06/08/17 08:10 Worker's Comp Is this a Worker's Comp case?: No [facility] Medical History (Updated 12/14/21 @ 14:35 by Lori Ling APRN) Migraine Surgical History History of appendectomy History of hysterectomy History of tonsillectomy S/P tympanic tube insertion Social History (Updated 12/14/21 @ 14:12 by Joanna Day RN) Smoking Status: Current every day smoker tobacco type: cigarettes packs per day: 1 second hand exposure: No alcohol intake: never current occupational status: employed Travel in the last 8 weeks: None household members: family ROS Obtained: Yes All systems review
[2021-12-14 14:33] VITALS: BP 141/97; PULSE 102; RESP 22; TEMP 36.6; O2SAT 97
== END 2021-12-14 14:40 | disposition home or self-care (01) ==
PROVIDERS: Emergency Provider Nurse Practitioner Family; PCP Internal Medicine
DX: J06.9 Acute upper respiratory infection, unspecified (principal)
CPT/HCPCS: 71046; 99212; G0463

== ENCOUNTER 2022-02-17 20:43 | Emergency (ER) | payer BC, SELFPAY ==
[2022-02-17 20:43] VITALS: BP 147/105; PULSE 80; RESP 16; TEMP 36.7; O2SAT 97; BMI 26.6
[2022-02-17 23:12] LABS: Basophils # 0.1 K/mm3 (0-0.2); Basophils % 1.6 % (0.1-2.0); Eosinophils # 0.1 K/mm3 (0.0-0.4); Eosinophils % 0.9 % (0.1-12.0); Hemoglobin 13.8 g/dL (12.2-16.2); Lymphocytes # 2.4 K/mm3 (0.7-4.5); Lymphocytes % 31.8 % (10-50); Mean Corpuscular HGB Conc 31.4 g/dL (31.8-35.4); Mean Corpuscular Hemoglobin 25.8 pg (27.0-31.2); Mean Corpuscular Volume 82.3 fl (81-99); Mean Platelet Volume 8.3 fl (7.4-10.4); Monocytes # 0.4 K/mm3 (0.1-1.0); Monocytes % 5.5 % (1.7-9.3); Neutrophils # 4.6 K/mm3 (1.8-7.8); Neutrophils % 60.1 % (37.0-80.0); Platelet Count 299 K/mm3 (142-424); Red Blood Count 5.35 M/mm3 (4.20-5.40); Red Cell Distribution Width 14.4 % (11.5-17.5); White Blood Count 7.6 K/mm3 (4.8-10.8)
[2022-02-17 23:15] LABS: Chloride 104 mmol/L (98-107); Sodium 141 mmol/L (136-145)
[2022-02-17 23:16] LABS: Potassium 3.6 mmoL/L (3.5-5.1)
[2022-02-17 23:18] LABS: Alanine Aminotransferase 42 U/L (12-78); Albumin Level 4.4 g/dl (3.5-5.0); Albumin/Globulin Ratio 1.8 (1.1-1.8); Alkaline Phosphatase 100 U/L (38-126); Anion Gap 13.6 mEq/L (5-15); Aspartate Amino Transferase 35 U/L (14-36); Bilirubin,Total 0.2 mg/dl (0.2-1.3); Blood Urea Nitrogen 13 mg/dl (7-17); Calcium 9.6 mg/dl (8.4-10.2); Carbon Dioxide 27 mmol/L (22.0-30.0); Creatinine Clearance Estimated 175 mL/min (50-200); Estimated Glomerular Filt Rate 134 ml/min (>60); GFR (African American) 162 ML/MIN (>60); Globulin 2.5 g/dL (1.3-3.2); Glucose 107 mg/dl (74-100); Total Protein,Serum 6.9 g/dl (6.3-8.2)
[2022-02-17 23:30] VITALS: BP 119/72; PULSE 87; O2SAT 99
[2022-02-18] VITALS: BP 112/69; PULSE 77; O2SAT 96
--- NOTE | 2022-02-18 00:26 | PC.NURSE ---
Dr. Juan at
--- NOTE | 2022-02-18 00:28 | HMH.EDHA ---
Discharge Plan Disposition Patient Disposition: Home, Self-Care Prescriptions Prescriptions: No Action estradiol 0.1 mg/24 hr patch semiweekly 1 patch transdermal DIRECTED Label Comments: APPLY 1 PATCH TWICE A WEEK DIRECTED Aimovig Autoinjector 140 mg/mL auto-injector 140 mg SQ MONTHLY Label Comments: ADMINISTER 1 ML UNDER THE SKIN EVERY 30 DAYS DIRECTED Ubrelvy 100 mg tablet 100 mg PO NEEDED PRN (Reason: Migraines) Referrals Follow up/Referrals: Rahul Mars [Primary Care Provider] - See instructions Clinical Impressions Clinical Impression: Migraine Instructions Patient Instructions: DI for Migraine Discharge ED Provider: Kai Juan Headache HPI General Chief Complaint: Headache Stated Complaint: RESTREPO Time Seen by Provider: 02/18/22 00:29 Mode of Arrival: Ambulatory Source of Information: Patient Limitations: No Limitations Description of Symptoms (Recalled from ER Triage Doc. by RN): Pt reports frontal migraine that started a few hours ago . Pt has hx of migraines w/ monthly injections and PRN medication. She attempted to take her PRN ubrelvy but had an episode of vomiting and thinks she threw it back up. Pt decribes migraine as similar to past migraines and reports seeing halos . No weakness or difficulty with speech or tasks. History of Present Illness HPI Narrative: onset of migraine with hx of migraines with nausea - no fever/rash or trauma MD Complaint: migraine Onset (ago): hour(s) Onset description: gradual Location: diffuse Severity: similar to previous episodes Relieving factors: prescription medication Context: occurred at rest Treatments prior to arrival: migraine medication Related Data Home Medications Medication Instructions Recorded Confirmed erenumab-aooe 140 mg/mL 140 mg SQ MONTHLY Migraines 02/17/22 02/17/22 subcutaneous auto-injector (Aimovig Autoinjector) estradiol 0.1 mg/24 hr semiweekly 1 patch transdermal DIRECTED 02/17/22 02/17/22 transdermal patch control ubrogepant 100 mg tablet (Ubrelvy) 100 mg PO NEEDED PRN Migraines 02/17/22 02/17/22 Allergies Allergy/AdvReac Type Severity Reaction Status Date / Time cephalexin [From KEFLEX] Allergy Unknown Hives Verified 06/08/17 08:10 [facility] History Hepatitis A Screen Attestation statement:: This patient has been screened for Hepatitis A risk factors. Medical History: Denies: Cancer, Diabetes Mellitus Type 1, Diabetes Mellitus Type 2, Hypertension, Internal Pacemaker, Lung Disease, MRSA or Seizures Other Medical History: Reports Other (endometriosis, multiple laparoscopies) Laterality Cases: Right: Arthroscopy Shoulder and Bilateral: Myringotomy (Ear Tubes) and Tonsillectomy Other Surgeries: No Pacemaker Amputation: No Fractures: Yes (wrist) Social History Smoking Status: Never smoker Tobacco Type: cigarettes # Packs/Day (cigarettes): 1 Alcohol Intake: never Occupational Status: employed Household Members: family [facility] Medical History (Updated 02/18/22 @ 00:33 by Kai Juan MD) Migraine Surgical History History of appendectomy History of hysterectomy History of tonsillectomy S/P tympanic tube insertion Social History (Updated 12/14/21 @ 14:12 by Joanna Day RN) Smoking Status: Never smoker second hand exposure: No alcohol intake: never current occupational status: employed Travel in the last 8 weeks: None household members: family ROS Obtained: Yes All systems reviewed & no additional complaints except as documented Physical Exam General General appearance: alert Head Head exam: normocephalic Eye Eye exam: Present PERRL and EOMI ENT ENT exam: Present mucous membranes moist Neck Neck exam: Present trachea midline Respiratory Respiratory exam: Absent respiratory distress Cardiovascular Cardiovascular exam: Present regular rate Abdo
[2022-02-18 00:44] VITALS: BP 130/81; PULSE 81; RESP 16; TEMP 36.9; O2SAT 97
== END 2022-02-18 00:45 | disposition home or self-care (01) ==
PROVIDERS: Emergency Provider Emergency Medicine; PCP Internal Medicine
DX: G43.909 Migraine, unspecified, not intractable, without status migrainosus (principal); Z79.3 Long term (current) use of hormonal contraceptives; Z79.899 Other long term (current) drug therapy; Z88.1 Allergy status to other antibiotic agents
CPT/HCPCS: 80053; 85025; 96374; 96375; 99284

== ENCOUNTER 2022-03-05 19:07 | Emergency (ER) | payer BC, SELFPAY ==
[2022-03-05 19:08] VITALS: BP 147/94; PULSE 77; RESP 19; TEMP 36.6; O2SAT 100; BMI 27.3
--- NOTE | 2022-03-05 20:32 | HMH.EDHA ---
Discharge Plan Disposition Patient Disposition: Home, Self-Care Chief Complaint: Headache Prescriptions Prescriptions: No Action estradiol 0.1 mg/24 hr patch semiweekly 1 patch transdermal DIRECTED Label Comments: APPLY 1 PATCH TWICE A WEEK DIRECTED Aimovig Autoinjector 140 mg/mL auto-injector 140 mg SQ MONTHLY Label Comments: ADMINISTER 1 ML UNDER THE SKIN EVERY 30 DAYS DIRECTED Ubrelvy 100 mg tablet 100 mg PO NEEDED PRN (Reason: Migraines) Referrals Follow up/Referrals: Rahul Mars [Primary Care Provider] - See instructions Clinical Impressions Clinical Impression: Migraine Instructions Patient Instructions: DI for Migraine Discharge ED Provider: Kai Juan Headache HPI General Chief Complaint: Headache Stated Complaint: mirgrane Time Seen by Provider: 03/05/22 20:32 Mode of Arrival: Family Vehicle Source of Information: Patient, Relative and Medical Record Limitations: No Limitations Description of Symptoms (Recalled from ER Triage Doc. by RN): Pt c/o migraine and nausea with vomiting. She has chronic migraines and took Ubrevly and phenergan @ 1700 today when the migraine began. Pt has not had any relief. Pt also takes Aimovig for maintence. Denies any fever, chills, or diarrhea. History of Present Illness HPI Narrative: acute headache with nausea and vomiting with hx of same - last was last week - took meds at home w/o relief - no fever/rash or trauma Complaint: migraine Onset (ago): hour(s) Onset description: gradual Location: diffuse Severity: moderate Quality: similar to previous headaches Relieving factors: prescription medication Context: occurred at rest Associated symptoms: nausea and vomiting Treatments prior to arrival: prescription analgesic Related Data Home Medications Medication Instructions Recorded Confirmed erenumab-aooe 140 mg/mL 140 mg SQ MONTHLY Migraines 02/17/22 02/17/22 subcutaneous auto-injector (Aimovig Autoinjector) estradiol 0.1 mg/24 hr semiweekly 1 patch transdermal DIRECTED 02/17/22 02/17/22 transdermal patch control ubrogepant 100 mg tablet (Ubrelvy) 100 mg PO NEEDED PRN Migraines 02/17/22 02/17/22 Allergies Allergy/AdvReac Type Severity Reaction Status Date / Time cephalexin [From KEFLEX] Allergy Unknown Hives Verified 06/08/17 08:10 [facility] History Hepatitis A Screen Attestation statement:: This patient has been screened for Hepatitis A risk factors. I have reviewed the patient's past medical history: Yes Medical History: Denies: Cancer, Diabetes Mellitus Type 1, Diabetes Mellitus Type 2, Hypertension, Internal Pacemaker, Lung Disease, MRSA or Seizures Other Medical History: Reports Other (endometriosis, multiple laparoscopies) Laterality Cases: Right: Arthroscopy Shoulder and Bilateral: Myringotomy (Ear Tubes) and Tonsillectomy Other Surgeries: No Pacemaker Amputation: No Fractures: Yes (wrist) Social History Smoking Status: Current every day smoker Tobacco Type: cigarettes # Packs/Day (cigarettes): 1 Alcohol Intake: never Occupational Status: employed Household Members: family [facility] Medical History (Updated 03/05/22 @ 21:12 by Kai Juan MD) Migraine Surgical History History of appendectomy History of hysterectomy History of tonsillectomy S/P tympanic tube insertion Social History (Updated 12/14/21 @ 14:12 by Joanna Day RN) Smoking Status: Current every day smoker tobacco type: cigarettes packs per day: 1 second hand exposure: No alcohol intake: never current occupational status: employed Travel in the last 8 weeks: None household members: family ROS Obtained: Yes All systems reviewed & no additional complaints except as documented Physical Exam General General appearance: alert Head Head exam: normocephalic Eye Eye exam: Present PERRL and EOMI ENT ENT exa
[2022-03-05 21:43] VITALS: BP 140/92; PULSE 77; RESP 18; TEMP 36.6; O2SAT 99
[2022-03-05 21:47] VITALS: BP 135/78; PULSE 85; RESP 17; TEMP 36.8; O2SAT 98
== END 2022-03-05 21:50 | disposition home or self-care (01) ==
PROVIDERS: Emergency Provider Emergency Medicine; PCP Internal Medicine
DX: G43.909 Migraine, unspecified, not intractable, without status migrainosus (principal)
CPT/HCPCS: 96365; 96367; 96375; 96376; 99284; J2405; J3475

== ENCOUNTER 2022-04-04 22:46 | Emergency (ER) | payer BC, SELFPAY ==
[2022-04-04 22:47] VITALS: BP 131/89; PULSE 80; RESP 16; TEMP 37.1; O2SAT 100; BMI 26.6
[2022-04-04 23:34] LABS: Appearance,Urine CLEAR (Clear); Bilirubin,Urine Negative (Negative); Blood, Urine Negative (Negative); Color,Urine YELLOW (Yellow); Glucose,Urine (UA) Negative (Negative); Ketones,Urine Negative (Negative); Leukocyte Esterase,Urine Negative (Negative); Microscopic, Urine URINE MICROSCOPIC (MICROSCOPIC); Nitrate,Urine Negative (Negative); Protein,Urine Negative (Negative); Specific Gravity, Urine <= 1.005 (1.005-1.030); Urobilinogen,Urine 0.2 EU/dl (0.2)
[2022-04-04 23:45] LABS: Squamous Epithelial Cell,Urine Occasional #/hpf (0-5)
[2022-04-04 23:46] LABS: Alanine Aminotransferase 72 U/L (12-78); Anion Gap 12.8 mEq/L (5-15); Aspartate Amino Transferase 45 U/L (14-36); Basophils # 0.1 K/mm3 (0-0.2); Bilirubin,Total 0.4 mg/dl (0.2-1.3); Blood Urea Nitrogen 18 mg/dl (7-17); Calcium 10.3 mg/dl (8.4-10.2); Carbon Dioxide 30 mmol/L (22.0-30.0); Chloride 102 mmol/L (98-107); Creatinine Clearance Estimated 109 mL/min (50-200); Eosinophils # 0.1 K/mm3 (0.0-0.4); Estimated Glomerular Filt Rate 78 ml/min (>60); GFR (African American) 94 ML/MIN (>60); Glucose 115 mg/dl (74-100); Hematocrit 44.9 % (37.0-47.0); Hemoglobin 14.6 g/dL (12.2-16.2); Lymphocytes # 2.6 K/mm3 (0.7-4.5); Lymphocytes % 38.7 % (10-50); Magnesium 1.7 mg/dl (1.6-2.3); Mean Corpuscular HGB Conc 32.5 g/dL (31.8-35.4); Mean Corpuscular Hemoglobin 26.3 pg (27.0-31.2); Mean Corpuscular Volume 81.1 fl (81-99); Mean Platelet Volume 8.4 fl (7.4-10.4); Monocytes # 0.4 K/mm3 (0.1-1.0); Monocytes % 5.4 % (1.7-9.3); Neutrophils # 3.5 K/mm3 (1.8-7.8); Neutrophils % 52.8 % (37.0-80.0); Platelet Count 298 K/mm3 (142-424); Potassium 3.8 mmoL/L (3.5-5.1); Red Blood Count 5.54 M/mm3 (4.20-5.40); Red Cell Distribution Width 14.2 % (11.5-17.5); Sodium 141 mmol/L (136-145); White Blood Count 6.7 K/mm3 (4.8-10.8)
--- NOTE | 2022-04-04 23:46 | HMH.EDHA ---
Discharge Plan Disposition Patient Disposition: Home, Self-Care Chief Complaint: Headache Prescriptions Prescriptions: No Action estradiol 0.1 mg/24 hr patch semiweekly 1 patch transdermal DIRECTED Label Comments: APPLY 1 PATCH TWICE A WEEK DIRECTED Aimovig Autoinjector 140 mg/mL auto-injector 140 mg SQ MONTHLY Label Comments: ADMINISTER 1 ML UNDER THE SKIN EVERY 30 DAYS DIRECTED Ubrelvy 100 mg tablet 100 mg PO NEEDED PRN (Reason: Migraines) Referrals Follow up/Referrals: Rahul Mars [Primary Care Provider] - See instructions Clinical Impressions Clinical Impression: Migraine Instructions Patient Instructions: DI for Migraine Discharge ED Provider: Kai Juan Headache HPI General Chief Complaint: Headache Stated Complaint: migraine Time Seen by Provider: 04/04/22 23:46 Mode of Arrival: Ambulatory Source of Information: Patient and Medical Record Limitations: No Limitations Description of Symptoms (Recalled from ER Triage Doc. by RN): migraine headache since [id number] the pt states she has taken her home meds of zomeg and promethazine History of Present Illness HPI Narrative: pt with acute exacerbation of migraine pillai Complaint: migraine Onset (ago): hour(s) Onset description: gradual Location: diffuse Severity: similar to previous episodes Context: occurred at rest Treatments prior to arrival: prescription analgesic Related Data Home Medications Medication Instructions Recorded Confirmed erenumab-aooe 140 mg/mL 140 mg SQ MONTHLY Migraines 02/17/22 02/17/22 subcutaneous auto-injector (Aimovig Autoinjector) estradiol 0.1 mg/24 hr semiweekly 1 patch transdermal DIRECTED 02/17/22 02/17/22 transdermal patch control ubrogepant 100 mg tablet (Ubrelvy) 100 mg PO NEEDED PRN Migraines 02/17/22 02/17/22 Allergies Allergy/AdvReac Type Severity Reaction Status Date / Time cephalexin [From KEFLEX] Allergy Unknown Hives Verified 06/08/17 08:10 [facility] History Hepatitis A Screen Attestation statement:: This patient has been screened for Hepatitis A risk factors. I have reviewed the patient's past medical history: Yes Medical History: Denies: Cancer, Diabetes Mellitus Type 1, Diabetes Mellitus Type 2, Hypertension, Internal Pacemaker, Lung Disease, MRSA or Seizures Other Medical History: Reports Other (endometriosis, multiple laparoscopies) Laterality Cases: Right: Arthroscopy Shoulder and Bilateral: Myringotomy (Ear Tubes) and Tonsillectomy Other Surgeries: No Pacemaker Amputation: No Fractures: Yes (wrist) Social History Smoking Status: Former smoker Tobacco Type: cigarettes # Packs/Day (cigarettes): 1 Alcohol Intake: never Occupational Status: employed Household Members: family [facility] Disclaimer: The information contained in this section may have been updated after the patient was seen, as this information can be updated by other users. Medical History (Updated 04/05/22 @ 00:17 by Kai Juan MD) Migraine Surgical History History of appendectomy History of hysterectomy History of tonsillectomy S/P tympanic tube insertion Social History (Updated 12/14/21 @ 14:12 by Joanna Day RN) Smoking Status: Former smoker second hand exposure: No alcohol intake: never current occupational status: employed Travel in the last 8 weeks: None household members: family ROS Obtained: Yes All systems reviewed & no additional complaints except as documented Physical Exam General General appearance: alert Head Head exam: normocephalic Eye Eye exam: Present PERRL and EOMI; Absent scleral icterus ENT ENT exam: Present mucous membranes moist Neck Neck exam: Present trachea midline Respiratory Respiratory exam: Absent respiratory distress Cardiovascular Cardiovascular exam: Present regular rate Abdominal Exam Abdominal exam: Prese
[2022-04-04 23:47] LABS: Albumin/Globulin Ratio 1.7 (1.1-1.8); Alkaline Phosphatase 112 U/L (38-126)
[2022-04-05 00:36] VITALS: BP 131/89; PULSE 90; RESP 16; TEMP 37.1; O2SAT 98
== END 2022-04-05 00:42 | disposition home or self-care (01) ==
PROVIDERS: Emergency Provider Emergency Medicine; PCP Internal Medicine
DX: G43.909 Migraine, unspecified, not intractable, without status migrainosus (principal); Z79.890 Hormone replacement therapy; Z88.8 Allergy status to other drugs, medicaments and biological substances; Z87.891 Personal history of nicotine dependence
CPT/HCPCS: 80053; 81001; 83735; 85025; 96374; 96375; 99284

== ENCOUNTER 2022-05-10 10:12 | Emergency (ER) | payer BC, SELFPAY ==
--- NOTE | 2022-05-10 10:52 | EXP.UTC ---
Discharge Plan Disposition Patient Disposition: Home, Self-Care Condition: Good Prescriptions Prescriptions: New amoxicillin [amoxicillin] 875 mg tablet 875 mg PO Q12H Qty: 20 0RF benzonatate [benzonatate] 100 mg capsule 100 mg PO TIDP PRN (Reason: Cough) Qty: 30 0RF methylprednisolone 4 mg Tablets,Dose Pack 4 mg PO DIRECTED Qty: 21 0RF No Action estradiol 0.1 mg/24 hr patch semiweekly 1 patch transdermal DIRECTED Label Comments: APPLY 1 PATCH TWICE A WEEK DIRECTED Aimovig Autoinjector 140 mg/mL auto-injector 140 mg SQ MONTHLY Label Comments: ADMINISTER 1 ML UNDER THE SKIN EVERY 30 DAYS DIRECTED Ubrelvy 100 mg tablet 100 mg PO NEEDED PRN (Reason: Migraines) topiramate 25 mg tablet 25 mg PO DAILY topiramate 50 mg tablet 50 mg PO DAILY Label Comments: TAKE 1 TABLET BY MOUTH TWICE DAILY almotriptan malate 12.5 mg tablet 12.5 mg PO DAILY Label Comments: TAKE 1 TABLET BY MOUTH DIRECTED Referrals Follow up/Referrals: Rahul Mars [Primary Care Provider] - See instructions Activity Restrictions/Add. Instructions Additional Instructions/Restrictions: Drink plenty of fluids. Take tylenol or ibuprofen for pain or fever. Take the medications as directed. Follow up with your regular doctor. GO TO THE ER FOR ANY WORSENING SYMPTOMS Clinical Impressions Clinical Impression: Sinusitis, Bronchitis Stand Alone Forms Stand Alone Forms: Work/School Release Instructions Patient Instructions: Sinusitis, DI for Sinusitis Discharge ED Provider: Rnady Hubbard [facility] General Stated complaint: cough,drainage Time Seen by Provider: 05/10/22 10:53 History of Present Illness Provider Complaint: She states that she has had sinus and chest congestion for the past 3 days. Related Data Home Medications Medication Instructions Recorded Confirmed erenumab-aooe 140 mg/mL 140 mg SQ MONTHLY Migraines 02/17/22 05/10/22 subcutaneous auto-injector (Aimovig Autoinjector) estradiol 0.1 mg/24 hr semiweekly 1 patch transdermal DIRECTED 02/17/22 05/10/22 transdermal patch control ubrogepant 100 mg tablet (Ubrelvy) 100 mg PO NEEDED PRN Migraines 02/17/22 05/10/22 almotriptan malate 12.5 mg tablet 12.5 mg PO DAILY . 05/10/22 05/10/22 topiramate 25 mg tablet 25 mg PO DAILY . 05/10/22 05/10/22 topiramate 50 mg tablet 50 mg PO DAILY . 05/10/22 05/10/22 Previous Rx's Medication Instructions Recorded amoxicillin 875 mg tablet 875 mg PO Q12H #20 tabs 05/10/22 benzonatate 100 mg capsule 100 mg PO TIDP PRN Cough #30 caps 05/10/22 methylprednisolone 4 mg tablets in 4 mg PO DIRECTED #21 tabs 05/10/22 a dose pack Allergies Allergy/AdvReac Type Severity Reaction Status Date / Time cephalexin [From KEFLEX] Allergy Unknown Hives Verified 05/10/22 11:45 [facility] Disclaimer: The information contained in this section may have been updated after the patient was seen, as this information can be updated by other users. Medical History Migraine Surgical History History of appendectomy History of hysterectomy History of tonsillectomy S/P tympanic tube insertion Social History Smoking Status: Former smoker second hand exposure: No alcohol intake: never current occupational status: employed Travel in the last 8 weeks: None household members: family ROS Obtained: Yes All systems reviewed & no additional complaints except as documented Constitutional Constitutional: Reports chills and Reports fever(s) Eyes Eyes: Denies eye discharge ENT Ears, Nose, Mouth, and Throat: Reports as per HPI Cardiovascular Cardiovascular: Denies chest pain Respiratory Respiratory: Denies chest congestion and Reports cough Gastrointestinal
[2022-05-10 11:35] VITALS: BP 128/83; PULSE 71; RESP 20; TEMP 36.8; O2SAT 98; BMI 26.7
[2022-05-10 11:40] LABS: UTC Influenza A Antigen Negative (Negative); UTC Influenza B Antigen Negative (Negative)
[2022-05-10 12:03] VITALS: BP 128/83; PULSE 71; RESP 20; TEMP 36.8; O2SAT 98
== END 2022-05-10 12:03 | disposition home or self-care (01) ==
PROVIDERS: Emergency Provider Nurse Practitioner Family; PCP Internal Medicine
DX: J32.9 Chronic sinusitis, unspecified (principal); J40 Bronchitis, not specified as acute or chronic
CPT/HCPCS: 87804; 99212; 99214; G0463

== ENCOUNTER 2022-05-26 09:13 | Emergency (ER) | payer BC, SELFPAY ==
--- NOTE | 2022-05-26 09:17 | XR_ITS ---
FINAL REPORT CLINICAL HISTORY: FALL FINDINGS: LEFT HIP 2 views of the left hip are obtained. There is no acute fracture or dislocation. Visualized joint spaces are normally aligned. There is no acute soft tissue abnormality. IMPRESSION: No acute bony abnormality. Reviewed, Interpreted and Dictated by Keysha Ritter MD Transcribed by Yuliana Anderson Authenticated and [facility]
[2022-05-26 09:50] VITALS: BP 122/78; PULSE 87; RESP 19; TEMP 36.8; O2SAT 98; BMI 25.8
--- NOTE | 2022-05-26 10:22 | EXP.UTC ---
Discharge Plan Disposition Patient Disposition: Home, Self-Care Condition: Good Prescriptions Prescriptions: New methylprednisolone [Medrol (Davonte)] 4 mg tablets,dose pack See Rx Instructions .Route .COMPLEX 6 Days Qty: 21 0RF Rx Instructions: taper pack; No Action estradiol 0.1 mg/24 hr patch semiweekly 1 patch transdermal DIRECTED Label Comments: APPLY 1 PATCH TWICE A WEEK DIRECTED Aimovig Autoinjector 140 mg/mL auto-injector 140 mg SQ MONTHLY Label Comments: ADMINISTER 1 ML UNDER THE SKIN EVERY 30 DAYS DIRECTED Ubrelvy 100 mg tablet 100 mg PO NEEDED PRN (Reason: Migraines) topiramate 25 mg tablet 25 mg PO DAILY topiramate 50 mg tablet 50 mg PO DAILY Label Comments: TAKE 1 TABLET BY MOUTH TWICE DAILY almotriptan malate 12.5 mg tablet 12.5 mg PO DAILY Label Comments: TAKE 1 TABLET BY MOUTH DIRECTED amoxicillin [amoxicillin] 875 mg tablet 875 mg PO Q12H Qty: 20 0RF benzonatate [benzonatate] 100 mg capsule 100 mg PO TIDP PRN (Reason: Cough) Qty: 30 0RF methylprednisolone 4 mg Tablets,Dose Pack 4 mg PO DIRECTED Qty: 21 0RF Referrals Follow up/Referrals: Rahul Mars [Primary Care Provider] - See instructions Activity Restrictions/Add. Instructions Additional Instructions/Restrictions: Start oral steriods tomorrow Follow up with your Family Doctor if symptoms persist Ice to area every 20min may help with pain Return if needed Straight to ER if any life threatening symptoms or loss of control of bowel or bladder Clinical Impressions Clinical Impression: Hip pain Stand Alone Forms Stand Alone Forms: Work/School Release Instructions Patient Instructions: Sciatica, DI for Sciatica, DI for Hip Pain Discharge ED Provider: Radha Yee [facility] [place] HPI General Stated complaint: [id number]@1600 pain in Lt hip Mode of Arrival: Ambulatory Source of Information: Patient Limitations: No Limitations Time Seen by Provider: 05/26/22 10:22 Description of Symptoms (Recalled from Triage Doc. by RN): PATIENT C/O LEFT HIP PAIN AFTER FALLING YESTERDAY HEENT Symptoms (Recalled from RN notes): No Resp Symptoms (Recalled from RN notes): No Skin Symptoms (Recalled from RN notes): No MS Symptoms (Recalled from RN notes): Yes Functional Status (Recalled from RN notes): WNL History of Present Illness Provider Complaint: Patient states that she was cleaning carpet yesterday at home and stepped onto the vinyl floor and slipped and fell and landed on her left hip States that she has been up walking but having pain in left hip ever since the fall and has a hx of Osteoporosis so she wanted to get it checked denies any other injury States she has hx of sciatica and feels like it does when it flares up Related Data Home Medications Medication Instructions Recorded Confirmed erenumab-aooe 140 mg/mL 140 mg SQ MONTHLY Migraines 02/17/22 05/10/22 subcutaneous auto-injector (Aimovig Autoinjector) estradiol 0.1 mg/24 hr semiweekly 1 patch transdermal DIRECTED 02/17/22 05/10/22 transdermal patch control ubrogepant 100 mg tablet (Ubrelvy) 100 mg PO NEEDED PRN Migraines 02/17/22 05/10/22 almotriptan malate 12.5 mg tablet 12.5 mg PO DAILY . 05/10/22 05/10/22 topiramate 25 mg tablet 25 mg PO DAILY . 05/10/22 05/10/22 topiramate 50 mg tablet 50 mg PO DAILY . 05/10/22 05/10/22 Previous Rx's Medication Instructions Recorded amoxicillin 875 mg tablet 875 mg PO Q12H #20 tabs 05/10/22 benzonatate 100 mg capsule 100 mg PO TIDP PRN Cough #30 caps 05/10/22 methylprednisolone 4 mg tablets in 4 mg PO DIRECTED #21 tabs 05/10/22 a dose pack methylprednisolone 4 mg tablets in See Rx Instructions .Route 05/26/22 a dose pack (Medrol (Davonte)) .COMPLEX 6 days #21 tabs Allergies Allergy/AdvReac Type Severity Reaction Status Date / Time cephalexin [From KEFLEX] Allergy Unknown Hives Verified 05/10/22 11:45
[2022-05-26 11:45] VITALS: BP 122/78; PULSE 87; RESP 19; TEMP 36.8; O2SAT 98
== END 2022-05-26 11:52 | disposition home or self-care (01) ==
PROVIDERS: Emergency Provider Nurse Practitioner; PCP Internal Medicine
DX: M25.552 Pain in left hip (principal); W01.0XXA Fall on same level from slipping, tripping and stumbling without subsequent striking against object, initial encounter
CPT/HCPCS: 73502; 96372; 99212; 99213; G0463

== ENCOUNTER 2022-06-10 19:52 | Emergency (ER) | payer BC, SELFPAY ==
[2022-06-10 19:53] VITALS: BP 162/111; PULSE 106; RESP 16; TEMP 36.4; O2SAT 99; BMI 26.6
--- NOTE | 2022-06-10 20:21 | HMH.EDHA ---
Discharge Plan Disposition Patient Disposition: Home, Self-Care Chief Complaint: Headache Prescriptions Prescriptions: No Action estradiol 0.1 mg/24 hr patch semiweekly 1 patch transdermal DIRECTED Label Comments: APPLY 1 PATCH TWICE A WEEK DIRECTED Aimovig Autoinjector 140 mg/mL auto-injector 140 mg SQ MONTHLY Label Comments: ADMINISTER 1 ML UNDER THE SKIN EVERY 30 DAYS DIRECTED Ubrelvy 100 mg tablet 100 mg PO NEEDED PRN (Reason: Migraines) topiramate 25 mg tablet 25 mg PO DAILY topiramate 50 mg tablet 50 mg PO DAILY Label Comments: TAKE 1 TABLET BY MOUTH TWICE DAILY almotriptan malate 12.5 mg tablet 12.5 mg PO DAILY Label Comments: TAKE 1 TABLET BY MOUTH DIRECTED amoxicillin [amoxicillin] 875 mg tablet 875 mg PO Q12H Qty: 20 0RF benzonatate [benzonatate] 100 mg capsule 100 mg PO TIDP PRN (Reason: Cough) Qty: 30 0RF methylprednisolone 4 mg Tablets,Dose Pack 4 mg PO DIRECTED Qty: 21 0RF methylprednisolone [Medrol (Davonte)] 4 mg tablets,dose pack See Rx Instructions .Route .COMPLEX 6 Days Qty: 21 0RF Rx Instructions: taper pack; Referrals Follow up/Referrals: Rahul Mars [Primary Care Provider] - See instructions Clinical Impressions Clinical Impression: Migraine Instructions Patient Instructions: DI for Migraine Discharge ED Provider: Drake (ED)Kai Headache HPI General Chief Complaint: Headache Stated Complaint: headache Time Seen by Provider: 06/10/22 20:00 Mode of Arrival: Ambulatory Source of Information: Patient, Relative and Medical Record Limitations: No Limitations Description of Symptoms (Recalled from ER Triage Doc. by RN): pt reports headache that started earlier today, also reports n/v r/t headache. Pt reports hx of migraines, states this is not different than other migraines she has had in the past. Pt reports has taken her zomig as prescribed today with no success. History of Present Illness HPI Narrative: pt with acute exacerbation of migraine pillai -pt w/o fever/rash or trauma -no relief with home meds Complaint: migraine Onset (ago): hour(s) Onset description: gradual Location: diffuse Severity: similar to previous episodes Quality: similar to previous headaches Treatments prior to arrival: migraine medication Related Data Home Medications Medication Instructions Recorded Confirmed erenumab-aooe 140 mg/mL 140 mg SQ MONTHLY Migraines 02/17/22 05/10/22 subcutaneous auto-injector (Aimovig Autoinjector) estradiol 0.1 mg/24 hr semiweekly 1 patch transdermal DIRECTED 02/17/22 05/10/22 transdermal patch control ubrogepant 100 mg tablet (Ubrelvy) 100 mg PO NEEDED PRN Migraines 02/17/22 05/10/22 almotriptan malate 12.5 mg tablet 12.5 mg PO DAILY . 05/10/22 05/10/22 topiramate 25 mg tablet 25 mg PO DAILY . 05/10/22 05/10/22 topiramate 50 mg tablet 50 mg PO DAILY . 05/10/22 05/10/22 Previous Rx's Medication Instructions Recorded amoxicillin 875 mg tablet 875 mg PO Q12H #20 tabs 05/10/22 benzonatate 100 mg capsule 100 mg PO TIDP PRN Cough #30 caps 05/10/22 methylprednisolone 4 mg tablets in 4 mg PO DIRECTED #21 tabs 05/10/22 a dose pack methylprednisolone 4 mg tablets in See Rx Instructions .Route 05/26/22 a dose pack (Medrol (Davonte)) .COMPLEX 6 days #21 tabs Allergies Allergy/AdvReac Type Severity Reaction Status Date / Time cephalexin [From KEFLEX] Allergy Unknown Hives Verified 05/10/22 11:45 [facility] History Hepatitis A Screen Attestation statement:: This patient has been screened for Hepatitis A risk factors. I have reviewed the patient's past medical history: Yes Medical History: Denies: Cancer, Diabetes Mellitus Type 1, Diabetes Mellitus Type 2, Hypertension, Internal Pacemaker, Lung Disease, MRSA or Seizures Other Medical History: Reports Other (endometriosis, multiple laparoscopies) Laterality Cases: Right: Arthros
[2022-06-10 20:25] LABS: Basophils # 0.1 K/mm3 (0-0.2); Basophils % 1.4 % (0.1-2.0); Eosinophils # 0.2 K/mm3 (0.0-0.4); Eosinophils % 2.3 % (0.1-12.0); Hematocrit 43.7 % (37.0-47.0); Hemoglobin 14.3 g/dL (12.2-16.2); Lymphocytes # 2.5 K/mm3 (0.7-4.5); Lymphocytes % 38.5 % (10-50); Mean Corpuscular HGB Conc 32.8 g/dL (31.8-35.4); Mean Corpuscular Hemoglobin 26.3 pg (27.0-31.2); Mean Corpuscular Volume 80.3 fl (81-99); Monocytes # 0.5 K/mm3 (0.1-1.0); Monocytes % 7.3 % (1.7-9.3); Neutrophils # 3.3 K/mm3 (1.8-7.8); Neutrophils % 50.5 % (37.0-80.0); Platelet Count 308 K/mm3 (142-424); Red Blood Count 5.44 M/mm3 (4.20-5.40); Red Cell Distribution Width 14.1 % (11.5-17.5); White Blood Count 6.5 K/mm3 (4.8-10.8)
--- NOTE | 2022-06-10 20:28 | PC.NURSE ---
pt medicated per mar, family at bs, call light within reach.
[2022-06-10 20:30] VITALS: BP 152/98; PULSE 78; O2SAT 99
[2022-06-10 20:58] LABS: Chloride 106 mmol/L (98-107)
[2022-06-10 20:59] LABS: Potassium 3.6 mmoL/L (3.5-5.1); Sodium 141 mmol/L (136-145)
[2022-06-10 21:01] LABS: Blood Urea Nitrogen 8 mg/dl (7-17); Creatinine Clearance Estimated 146 mL/min (50-200); Estimated Glomerular Filt Rate 109 ml/min (>60); GFR (African American) 131 ML/MIN (>60)
[2022-06-10 21:02] LABS: Alanine Aminotransferase 27 U/L (12-78); Albumin Level 4.7 g/dl (3.5-5.0); Albumin/Globulin Ratio 1.6 (1.1-1.8); Alkaline Phosphatase 86 U/L (38-126); Anion Gap 12.6 mEq/L (5-15); Aspartate Amino Transferase 30 U/L (14-36); Bilirubin,Total 0.5 mg/dl (0.2-1.3); Calcium 9.6 mg/dl (8.4-10.2); Carbon Dioxide 26 mmol/L (22.0-30.0); Globulin 2.9 g/dL (1.3-3.2); Glucose 103 mg/dl (74-100); Total Protein,Serum 7.6 g/dl (6.3-8.2)
--- NOTE | 2022-06-10 21:07 | PC.NURSE ---
Pt given warm blanket per request
--- NOTE | 2022-06-10 21:21 | PC.NURSE ---
checked on pt at this time, pt reports nausea has gone away, reports still having pain. Notified ER MD, new orders received from ER MD
[2022-06-10 21:37] VITALS: BP 116/77; PULSE 92; O2SAT 98
[2022-06-10 22:05] VITALS: BP 118/64; PULSE 74; RESP 16; TEMP 36.8; O2SAT 98
== END 2022-06-10 22:10 | disposition home or self-care (01) ==
PROVIDERS: Emergency Provider Emergency Medicine; PCP Internal Medicine
DX: G43.909 Migraine, unspecified, not intractable, without status migrainosus (principal); E11.9 Type 2 diabetes mellitus without complications; I10 Essential (primary) hypertension; R91.8 Other nonspecific abnormal finding of lung field; Z95.0 Presence of cardiac pacemaker; Z85.9 Personal history of malignant neoplasm, unspecified; Z90.49 Acquired absence of other specified parts of digestive tract
CPT/HCPCS: 80053; 85025; 96361; 96374; 96375; 99285; J0131

== ENCOUNTER 2022-06-21 18:37 | Emergency (ER) | payer BC, SELFPAY ==
[2022-06-21 18:50] VITALS: BP 161/123; PULSE 97; RESP 22; TEMP 36.8; O2SAT 95; BMI 26.6
[2022-06-21 19:58] VITALS: BP 151/109; PULSE 73; RESP 16; TEMP 36.8; O2SAT 99; BMI 26.6
[2022-06-21 20:14] LABS: Chloride 107 mmol/L (98-107); Potassium 4.7 mmoL/L (3.5-5.1); Sodium 141 mmol/L (136-145)
[2022-06-21 20:16] LABS: Alanine Aminotransferase 36 U/L (12-78); Aspartate Amino Transferase 43 U/L (14-36); Blood Urea Nitrogen 10 mg/dl (7-17); Creatinine Clearance Estimated 146 mL/min (50-200); Estimated Glomerular Filt Rate 109 ml/min (>60); GFR (African American) 131 ML/MIN (>60)
[2022-06-21 20:17] LABS: Albumin Level 5.2 g/dl (3.5-5.0); Albumin/Globulin Ratio 1.5 (1.1-1.8); Alkaline Phosphatase 95 U/L (38-126); Anion Gap 15.7 mEq/L (5-15); Bilirubin,Total 0.7 mg/dl (0.2-1.3); Calcium 9.3 mg/dl (8.4-10.2); Carbon Dioxide 23 mmol/L (22.0-30.0); Globulin 3.4 g/dL (1.3-3.2); Glucose 101 mg/dl (74-100); Total Protein,Serum 8.6 g/dl (6.3-8.2)
[2022-06-21 20:22] LABS: Basophils # 0.1 K/mm3 (0-0.2); Basophils % 1.1 % (0.1-2.0); Eosinophils # 0.1 K/mm3 (0.0-0.4); Eosinophils % 1.5 % (0.1-12.0); Hematocrit 49.1 % (37.0-47.0); Hemoglobin 16.2 g/dL (12.2-16.2); Lymphocytes # 2.8 K/mm3 (0.7-4.5); Lymphocytes % 42.9 % (10-50); Mean Corpuscular HGB Conc 33.1 g/dL (31.8-35.4); Mean Corpuscular Hemoglobin 27.1 pg (27.0-31.2); Mean Corpuscular Volume 82.1 fl (81-99); Mean Platelet Volume 7.8 fl (7.4-10.4); Monocytes # 0.4 K/mm3 (0.1-1.0); Monocytes % 6.5 % (1.7-9.3); Neutrophils # 3.2 K/mm3 (1.8-7.8); Neutrophils % 48.1 % (37.0-80.0); Platelet Count 262 K/mm3 (142-424); Red Blood Count 5.99 M/mm3 (4.20-5.40); Red Cell Distribution Width 14.1 % (11.5-17.5); White Blood Count 6.6 K/mm3 (4.8-10.8)
--- NOTE | 2022-06-21 20:30 | HMH.EDHA ---
Discharge Plan Disposition Patient Disposition: Home, Self-Care Chief Complaint: Headache Prescriptions Prescriptions: No Action estradiol 0.1 mg/24 hr patch semiweekly 1 patch transdermal DIRECTED Label Comments: APPLY 1 PATCH TWICE A WEEK DIRECTED Aimovig Autoinjector 140 mg/mL auto-injector 140 mg SQ MONTHLY Label Comments: ADMINISTER 1 ML UNDER THE SKIN EVERY 30 DAYS DIRECTED Ubrelvy 100 mg tablet 100 mg PO NEEDED PRN (Reason: Migraines) topiramate 25 mg tablet 25 mg PO DAILY topiramate 50 mg tablet 50 mg PO DAILY Label Comments: TAKE 1 TABLET BY MOUTH TWICE DAILY almotriptan malate 12.5 mg tablet 12.5 mg PO DAILY Label Comments: TAKE 1 TABLET BY MOUTH DIRECTED amoxicillin [amoxicillin] 875 mg tablet 875 mg PO Q12H Qty: 20 0RF benzonatate [benzonatate] 100 mg capsule 100 mg PO TIDP PRN (Reason: Cough) Qty: 30 0RF methylprednisolone 4 mg Tablets,Dose Pack 4 mg PO DIRECTED Qty: 21 0RF methylprednisolone [Medrol (Davonte)] 4 mg tablets,dose pack See Rx Instructions .Route .COMPLEX 6 Days Qty: 21 0RF Rx Instructions: taper pack; Referrals Follow up/Referrals: Rahul Mars [Primary Care Provider] - See instructions Clinical Impressions Clinical Impression: Migraine Instructions Patient Instructions: DI for Migraine Discharge ED Provider: Drake (ED)Kai Headache HPI General Chief Complaint: Headache Stated Complaint: Migraine Time Seen by Provider: 06/21/22 19:28 Mode of Arrival: Ambulatory Source of Information: Patient, Relative and Medical Record Limitations: No Limitations Description of Symptoms (Recalled from ER Triage Doc. by RN): pt c/o migraine since this morning. pt states feels like her normal migraine History of Present Illness HPI Narrative: pt with acute migaine pillai with hx of same - no fever/rash or trauma - no new neuro sx MD Complaint: migraine Onset (ago): hour(s) Onset description: gradual Location: diffuse Severity: moderate Treatments prior to arrival: migraine medication Related Data Home Medications Medication Instructions Recorded Confirmed erenumab-aooe 140 mg/mL 140 mg SQ MONTHLY Migraines 02/17/22 05/10/22 subcutaneous auto-injector (Aimovig Autoinjector) estradiol 0.1 mg/24 hr semiweekly 1 patch transdermal DIRECTED 02/17/22 05/10/22 transdermal patch control ubrogepant 100 mg tablet (Ubrelvy) 100 mg PO NEEDED PRN Migraines 02/17/22 05/10/22 almotriptan malate 12.5 mg tablet 12.5 mg PO DAILY . 05/10/22 05/10/22 topiramate 25 mg tablet 25 mg PO DAILY . 05/10/22 05/10/22 topiramate 50 mg tablet 50 mg PO DAILY . 05/10/22 05/10/22 Previous Rx's Medication Instructions Recorded amoxicillin 875 mg tablet 875 mg PO Q12H #20 tabs 05/10/22 benzonatate 100 mg capsule 100 mg PO TIDP PRN Cough #30 caps 05/10/22 methylprednisolone 4 mg tablets in 4 mg PO DIRECTED #21 tabs 05/10/22 a dose pack methylprednisolone 4 mg tablets in See Rx Instructions .Route 05/26/22 a dose pack (Medrol (Davonte)) .COMPLEX 6 days #21 tabs Allergies Allergy/AdvReac Type Severity Reaction Status Date / Time cephalexin [From KEFLEX] Allergy Unknown Hives Verified 05/10/22 11:45 [facility] History Hepatitis A Screen Attestation statement:: This patient has been screened for Hepatitis A risk factors. I have reviewed the patient's past medical history: Yes Medical History: Denies: Cancer, Diabetes Mellitus Type 1, Diabetes Mellitus Type 2, Hypertension, Internal Pacemaker, Lung Disease, MRSA or Seizures Other Medical History: Reports Other (endometriosis, multiple laparoscopies) Laterality Cases: Right: Arthroscopy Shoulder and Bilateral: Myringotomy (Ear Tubes) and Tonsillectomy Other Surgeries: No Pacemaker Amputation: No Fractures: Yes (wrist) Social History Smoking Status: Current every day smoker Tobacco Type: cigarettes # Packs/Day (cigarette
[2022-06-21 20:53] VITALS: BP 147/87; PULSE 67; RESP 16; TEMP 36.8; O2SAT 99
== END 2022-06-21 21:04 | disposition home or self-care (01) ==
LOC: ER 18:40 → UTC 18:40 → ER 19:40
PROVIDERS: Emergency Provider Emergency Medicine; PCP Internal Medicine
DX: G43.909 Migraine, unspecified, not intractable, without status migrainosus (principal); F17.210 Nicotine dependence, cigarettes, uncomplicated; Z90.49 Acquired absence of other specified parts of digestive tract; Z90.710 Acquired absence of both cervix and uterus
CPT/HCPCS: 80053; 85025; 96361; 96374; 96375; 99283; 99284; J0131

== ENCOUNTER 2022-07-22 10:20 | Emergency (ER) | payer BC, SELFPAY ==
[2022-07-22 10:20] VITALS: BP 142/94; PULSE 88; RESP 20; TEMP 36.6; O2SAT 99; BMI 29.7
--- NOTE | 2022-07-22 11:01 | EXP.UTC ---
Discharge Plan Disposition Patient Disposition: Home, Self-Care Condition: Good Prescriptions Prescriptions: New benzonatate 100 mg capsule 100 mg PO TID PRN (Reason: cough) Qty: 15 0RF guaifenesin [Mucinex] 600 mg tablet extended release 12hr 600 - 1,200 mg PO BID PRN (Reason: cough/congestion) Qty: 20 0RF azithromycin [Zithromax Z-Davonte] 250 mg tablet See Rx Instructions .ROUTE .COMPLEX 5 Days Qty: 6 0RF Rx Instructions: For 250 mg dose pack: take 500 mg today (day 1), then 250 mg for 4 days (days 2-5) No Action estradiol 0.1 mg/24 hr patch semiweekly 1 patch transdermal DIRECTED Label Comments: APPLY 1 PATCH TWICE A WEEK DIRECTED Aimovig Autoinjector 140 mg/mL auto-injector 140 mg SQ MONTHLY Label Comments: ADMINISTER 1 ML UNDER THE SKIN EVERY 30 DAYS DIRECTED Ubrelvy 100 mg tablet 100 mg PO NEEDED PRN (Reason: Migraines) topiramate 25 mg tablet 25 mg PO DAILY topiramate 50 mg tablet 50 mg PO DAILY Label Comments: TAKE 1 TABLET BY MOUTH TWICE DAILY almotriptan malate 12.5 mg tablet 12.5 mg PO DAILY Label Comments: TAKE 1 TABLET BY MOUTH DIRECTED zolmitriptan 5 mg spray,non-aerosol 5 spray INTRANASAL NEEDED PRN (Reason: .) Referrals Follow up/Referrals: Rahul Mars [Primary Care Provider] - See instructions Activity Restrictions/Add. Instructions Additional Instructions/Restrictions: Start antibiotic today. Be sure to complete entire prescription even if feeling better Monitor temp. Tylenol every 4 hours as needed and / or ibuprofen every 6 hours as needed ( As long as your primary care physician has told you that it ok to take both. For fever/aches/pains ER if no less than 101 despite Tylenol or Motrin Humidifier/vaporizer or hot steamy shower Inhaler every 4-6 hours as needed like we discussed. If unsure how to use it, ask pharmacist to demonstrate how. Should help open airways and improve cough, wheezing, and shortness of breath Mucinex for your cough and cough suppressant only at night. Be sure to drink lots of water. Insurance may not cover a prescriptions for mucinex. Might be cheaper to get 400mg tablets and take 2 tablet in the morning, mid-day and evening with lots of water. *Tessalon Perles will not cause drowsiness but use at bedtime to help stop cough so that you may get some rest. Follow up IMMEDIATELY for new or worsening of symptoms OR no noticeable improvement over the next 48-72 hours. 911 immediately for any life threatening symptoms such as chest pain or difficulty breathing Clinical Impressions Clinical Impression: Upper respiratory infection Instructions Patient Instructions: Cough, DI for Cough -- Adult, Sore Throat Discharge ED Provider: Radha Yee [facility] [place] HPI General Stated complaint: cough Mode of Arrival: Ambulatory Source of Information: Patient Limitations: No Limitations Time Seen by Provider: 07/22/22 11:01 Description of Symptoms (Recalled from Triage Doc. by RN): cough, and wheezing HEENT Symptoms (Recalled from RN notes): Yes Resp Symptoms (Recalled from RN notes): No Skin Symptoms (Recalled from RN notes): No MS Symptoms (Recalled from RN notes): No Functional Status (Recalled from RN notes): n/a History of Present Illness Provider Complaint: Patient states that she is coughing with chest congestion and having a little sore throat States that her PCP put her on medication and she finished it last week and it got better but now it is coming back and her cough is getting worse States that it is keeping her up at night and she is not bringing anything up Related Data Home Medications Medication Instructions Recorded Confirmed erenumab-aooe 140 mg/mL 140 mg SQ MONTHLY Migraines 02/17/22 07/22/22 subcutaneous auto-injector (Aimovig Autoinjector) estradiol 0.1 mg/24 hr semiweekly 1 patch garcia
[2022-07-22 11:22] VITALS: BP 142/94; PULSE 88; RESP 20; TEMP 36.6; O2SAT 99
== END 2022-07-22 11:21 | disposition home or self-care (01) ==
PROVIDERS: Emergency Provider Nurse Practitioner; PCP Internal Medicine
DX: J06.9 Acute upper respiratory infection, unspecified (principal); R05.8 Other specified cough; F17.210 Nicotine dependence, cigarettes, uncomplicated
CPT/HCPCS: 99212; 99214; G0463

== ENCOUNTER → 2022-10-13 23:41 | Outpatient (CLI) | payer BC, SELFPAY ==
[2022-10-13 17:51] LABS: Adenovirus,PCR Not Detected (NotDetected); Bordetella Pertussis Not Detected (NotDetected); Chlamydophila Pneumoniae, PCR Not Detected (NotDetected); Coronavirus 19, PCR Not Detected (NotDetected); Coronavirus 229E Not Detected (NotDetected); Coronavirus NL63 Not Detected (NotDetected); Coronavirus OC43 Not Detected (NotDetected); Coronovirus HKU1,PCR Not Detected (NotDetected); Human Metapneumovirus Not Detected (NotDetected); Influenza A, PCR Not Detected (NotDetected); Influenza AH1, 2009 Not Detected (NotDetected); Influenza AH1, PCR Not Detected (NotDetected); Influenza AH3,PCR Not Detected (NotDetected); Influenza B, PCR Not Detected (NotDetected); Mycoplasma Pneumoniae, PCR Not Detected (NotDetected); Parainfluenza 1, PCR Not Detected (NotDetected); Parainfluenza 2, PCR Not Detected (NotDetected); Parainfluenza 3, PCR Not Detected (NotDetected); Parainfluenza 4, PCR Not Detected (NotDetected); Respiratory Syncytial Virus Not Detected (NotDetected); Rhinovirus/Enterovirus Not Detected (NotDetected)
== END ==
PROVIDERS: PCP Nurse Practitioner Family; Visit Provider Nurse Practitioner Family
DX: J98.8 Other specified respiratory disorders (principal); B97.89 Other viral agents as the cause of diseases classified elsewhere
CPT/HCPCS: 87581; 87632; 87798

== ENCOUNTER → 2022-12-10 15:55 | Outpatient (CLI) | payer BC, SELFPAY ==
--- NOTE | 2022-12-10 16:00 | MM_ITS ---
PROCEDURE INFORMATION: Exam: MG Bilateral Screening 3D Mammography Exam date and time: 12/10/2022 4:19 PM Age: 47 years old Clinical indication: Screening examination; Family history of breast cancer in aunt TECHNIQUE: Imaging protocol: Bilateral Screening tomosynthesis and 2D mammography including computer-aided detection (CAD) when performed. COMPARISON: 1. US BREAST LT COMPLETE 12/10/2022 4:19 PM 2. MG EMMA DIAG W ANNI ANDRE 02/26/2021 12:37 PM FINDINGS: MAMMOGRAPHY: Breast composition: There are scattered areas of fibroglandular density. Mass: None. Architectural distortion: None. Calcifications: No suspicious calcifications. Asymmetric density: None. Skin thickening: None. Axillary adenopathy: None. IMPRESSION: No mammographic evidence of malignancy. Annual screening is recommended unless otherwise clinically indicated. ASSESSMENT: BI-RADS Category 1: Negative
--- NOTE | 2022-12-10 16:00 | US_ITS ---
PROCEDURE INFORMATION: Exam: US Right Breast, Complete Exam date and time: 12/10/2022 4:05 PM Age: 47 years old Clinical indication: HX of fcbd; Additional info: Fibrocystic breast TECHNIQUE: Imaging protocol: Complete ultrasound of all four quadrants of the right breast and the retroareolar regions, including ultrasound of the axilla when performed. COMPARISON: No relevant prior studies available. FINDINGS: Breast: Hypoechoic mostly circumscribed solid-appearing mass in the right 6 o'clock breast 2 cm from the nipple measures 0.4 x 0.4 x 0.3 cm. There is a benign subcentimeter lymph node along the 8 o'clock axis 7 cm from the right nipple Benign simple and complicated cysts measure up to 0. Six cm along the 10 o'clock axis No suspicious solid or cystic mass No architectural distortion or shadowing IMPRESSION: Incidentally discovered 0.4 cm right 6 o'clock solid breast mass has features suggestive of a probable benign fibroadenoma. Targeted right breast ultrasound in 6 months is recommended to assure stability ASSESSMENT: BI-RADS category 3: Probably benign
--- NOTE | 2022-12-10 16:00 | US_ITS ---
PROCEDURE INFORMATION: Exam: US Left Breast, Complete Exam date and time: 12/10/2022 4:19 PM Age: 47 years old Clinical indication: HX of fcbd; Additional info: Fibrocystic breast TECHNIQUE: Imaging protocol: Complete ultrasound of all four quadrants of the left breast and the retroareolar regions, including ultrasound of the axilla when performed. COMPARISON: No relevant prior studies available. FINDINGS: Breast: 0.3 by 0.2 x 0.4 cm focus of possible shadowing along the 5 o'clock axis 3 cm from the left nipple is thought to be artifactual, probably related to Winston's ligaments or possibly benign calcifications. Benign fibrocystic changes measure up to about 0.5 cm in the 11 o'clock breast No suspicious solid or cystic mass IMPRESSION: Six-month follow-up targeted ultrasound is recommended to assure stability of what appears to reflect artifactual shadowing along the 5 o'clock left breast 3 cm from the nipple ASSESSMENT: BI-RADS category 3: Probably benign
== END ==
PROVIDERS: PCP Nurse Practitioner Family; Visit Provider Obstetrics & Gynecology
DX: N60.11 Diffuse cystic mastopathy of right breast (principal); N60.12 Diffuse cystic mastopathy of left breast; Z80.3 Family history of malignant neoplasm of breast; Z12.31 Encounter for screening mammogram for malignant neoplasm of breast
CPT/HCPCS: 76641; 77063; 77067

== ENCOUNTER 2023-01-09 16:00 | Emergency (ER) | payer BC, SELFPAY ==
[2023-01-09 16:20] VITALS: BP 142/90; PULSE 78; RESP 20; TEMP 37; O2SAT 100; BMI 27.2
--- NOTE | 2023-01-09 16:42 | EXP.UTC ---
Discharge Plan Disposition Patient Disposition: Home, Self-Care Condition: Good Prescriptions Prescriptions: New benzonatate 100 mg capsule 100 mg PO TID PRN (Reason: cough) Qty: 30 0RF doxycycline hyclate 100 mg capsule 100 mg PO BID Qty: 20 0RF methylprednisolone [Medrol ([place])] 4 mg tablets,dose pack See Rx Instructions .Route .COMPLEX 6 Days Qty: 21 0RF Rx Instructions: taper pack; No Action Emgality Syringe 300 mg/3 mL (100 mg/mL x 3) syringe 300 mg SQ QMONTH Rx Instructions: administer as three 100 mg injections at separate sites divalproex [Depakote] 500 mg tablet,delayed release (DR/EC) 500 mg PO BID estradiol 0.1 mg/24 hr patch semiweekly 1 patch transdermal DIRECTED Patient Comments: APPLY 1 PATCH TWICE A WEEK DIRECTED Ubrelvy 100 mg tablet 100 mg PO NEEDED PRN (Reason: Migraines) almotriptan malate 12.5 mg tablet 12.5 mg PO DAILY Patient Comments: TAKE 1 TABLET BY MOUTH DIRECTED zolmitriptan 5 mg spray,non-aerosol 5 spray INTRANASAL NEEDED PRN (Reason: .) Referrals Follow up/Referrals: Rahul Mars [Primary Care Provider] - See instructions Activity Restrictions/Add. Instructions Additional Instructions/Restrictions: Start antibiotic today. Be sure to complete entire prescription even if feeling better Monitor temp. Tylenol every 4 hours as needed and / or ibuprofen every 6 hours as needed ( As long as your primary care physician has told you that it ok to take both. For fever/aches/pains ER if no less than 101 despite Tylenol or Motrin Humidifier/vaporizer or hot steamy shower Inhaler every 4-6 hours as needed like we discussed. If unsure how to use it, ask pharmacist to demonstrate how. Should help open airways and improve cough, wheezing, and shortness of breath Mucinex during the day for your cough and cough suppressant only at night. Be sure to drink lots of water. Insurance may not cover a prescriptions for mucinex. Might be cheaper to get 400mg tablets and take 2 tablet in the morning, mid-day and evening with lots of water. *Promethazine DM cough syrup will cause drowsiness. Use only at night. No driving, operating machinery or caring for small children after taking it *Nasim Garibayes will not cause drowsiness but use at bedtime to help stop cough so that you may get some rest. *Start steroid today. Helps with inflammation therefore, cough and wheezing. Follow directions on the package. Reviewed side effects. Patient reports taking them before. Follow up IMMEDIATELY for new or worsening of symptoms OR no noticeable improvement over the next 48-72 hours. 911 immediately for any life threatening symptoms such as chest pain or difficulty breathing Clinical Impressions Clinical Impression: Bronchitis Sinusitis Qualifiers: Sinusitis location: unspecified location Chronicity: unspecified Qualified Code(s): J32.9 - Chronic sinusitis, unspecified Instructions Patient Instructions: Sinusitis, Acute Bronchitis, DI for Sinusitis Discharge ED Provider: Radha Yee [facility] [place] General Stated complaint: cough, runny nose Mode of Arrival: Ambulatory Source of Information: Patient Limitations: No Limitations Time Seen by Provider: 01/09/23 16:42 Description of Symptoms (Recalled from Triage Doc. by RN): PATIENT C/O COUGH AND RUNNY NOSE X 2 WEEKS HEENT Symptoms (Recalled from RN notes): Yes Resp Symptoms (Recalled from RN notes): Yes Skin Symptoms (Recalled from RN notes): No MS Symptoms (Recalled from RN notes): No Functional Status (Recalled from RN notes): WNL History of Present Illness Provider Complaint: Patient states that she started about 2 weeks ago with nasal congestion and cough States that she has continued to feel worse and feels like it is trying to move into her chest area States that she isnt coughing anything up but feels l
[2023-01-09 17:03] VITALS: BP 142/90; PULSE 78; RESP 20; TEMP 37; O2SAT 100
== END 2023-01-09 17:21 | disposition home or self-care (01) ==
PROVIDERS: Emergency Provider Nurse Practitioner; PCP Internal Medicine
DX: J20.9 Acute bronchitis, unspecified (principal); J01.90 Acute sinusitis, unspecified; F17.210 Nicotine dependence, cigarettes, uncomplicated
CPT/HCPCS: 99212; 99214; G0463

== ENCOUNTER 2023-03-11 08:11 | Emergency (ER) | payer BC, SELFPAY ==
[2023-03-11 08:25] VITALS: BP 128/83; PULSE 79; RESP 20; TEMP 36.7; O2SAT 97; BMI 27.3
[2023-03-11 08:42] VITALS: BP 128/83; PULSE 79; RESP 20; TEMP 36.7; O2SAT 97
--- NOTE | 2023-03-11 08:49 | EXP.UTC ---
Discharge Plan Disposition Patient Disposition: Still a Patient Condition: Good Prescriptions Prescriptions: New doxycycline hyclate 100 mg capsule 100 mg PO BID 10 Days Qty: 20 0RF benzonatate 100 mg capsule 100 mg PO TID PRN (Reason: cough) Qty: 30 0RF methylprednisolone [Medrol ([place]onte)] 4 mg tablets,dose pack See Rx Instructions .Route .COMPLEX 6 Days Qty: 21 0RF Rx Instructions: taper pack; No Action Emgality Syringe 300 mg/3 mL (100 mg/mL x 3) syringe 300 mg SQ QMONTH Rx Instructions: administer as three 100 mg injections at separate sites divalproex [Depakote] 500 mg tablet,delayed release (DR/EC) 500 mg PO BID estradiol valerate 20 mg/mL oil 30 mg IM Q4W Ubrelvy 100 mg tablet 100 mg PO NEEDED PRN (Reason: Migraines) almotriptan malate 12.5 mg tablet 12.5 mg PO DAILY Patient Comments: TAKE 1 TABLET BY MOUTH DIRECTED zolmitriptan 5 mg spray,non-aerosol 5 spray INTRANASAL NEEDED PRN (Reason: .) benzonatate 100 mg capsule 100 mg PO TID PRN (Reason: cough) Qty: 30 0RF doxycycline hyclate 100 mg capsule 100 mg PO BID Qty: 20 0RF Referrals Follow up/Referrals: Rahul Mars [Primary Care Provider] - See instructions Activity Restrictions/Add. Instructions Additional Instructions/Restrictions: *Monitor Temp, Over the counter Motrin or Tylenol as directed/as needed Tylenol every 4 hours and Motrin every 6 hours (as long as your family doctor has told you that you can take it) for fever or pain. and straight to ER if unable to lower temp less than 101.0 after medication given *Warm salt water gargles may help to soothe the throat *Throat Lozenges? *Warm fluids like tea with honey may help to soothe the throat? *Sleep elevated *Humidifier/Vaporizer Take medication as prescribed Follow up IMMEDIATELY for new or worsening symptoms or no Noticeable improvement over the next 48-72 hours. 911 for difficulty breathing or swallowing Clinical Impressions Clinical Impression: Sinusitis Stand Alone Forms Stand Alone Forms: Work/School Release Instructions Patient Instructions: DI for Sinusitis, Sinusitis Discharge ED Provider: Radha Yee [facility] [place] H[place] General Stated complaint: head congestion Mode of Arrival: Ambulatory Source of Information: Patient Limitations: No Limitations Time Seen by Provider: 03/11/23 08:49 Description of Symptoms (Recalled from Triage Doc. by RN): PATIENT C/O HEADACHE AND COUGH THIS MORNING HEENT Symptoms (Recalled from RN notes): Yes Resp Symptoms (Recalled from RN notes): Yes Skin Symptoms (Recalled from RN notes): No MS Symptoms (Recalled from RN notes): No Functional Status (Recalled from RN notes): WNL History of Present Illness Provider Complaint: Patient states that for the last week she has been having sinus pain and pressure and this morning she started with cough and pressure behind her eyes was worse so today she came in to get checked Related Data Home Medications Medication Instructions Recorded Confirmed ubrogepant 100 mg tablet (Ubrelvy) 100 mg PO NEEDED PRN Migraines 02/17/22 12/03/22 almotriptan malate 12.5 mg tablet 12.5 mg PO DAILY . 05/10/22 12/03/22 zolmitriptan 5 mg nasal spray 5 spray intranasal NEEDED PRN . 07/22/22 12/03/22 divalproex 500 mg tablet,delayed 500 mg PO BID 10/13/22 12/03/22 release (Depakote) galcanezumab-gnlm 300 mg/3 mL (100 300 mg SQ QMONTH 10/13/22 12/03/22 mg/mL x 3) subcutaneous syringe (Emgality) estradiol valerate 20 mg/mL 30 mg IM Q4W 01/16/23 01/16/23 intramuscular oil Previous Rx's Medication Instructions Recorded benzonatate 100 mg capsule 100 mg PO TID PRN cough #30 caps 01/09/23 doxycycline hyclate 100 mg capsule 100 mg PO BID #20 caps 01/09/23 benzonatate 100 mg capsule 100 mg PO TID PRN cough #30 caps 03/11/23 doxycycline hyclate 100 mg capsule 100 mg PO BID 1
== END 2023-03-11 09:01 | disposition still patient (30) ==
PROVIDERS: Emergency Provider Nurse Practitioner; PCP Internal Medicine
DX: J01.90 Acute sinusitis, unspecified (principal); R05.9 Cough, unspecified; R51.9 Headache, unspecified; R09.81 Nasal congestion; F17.210 Nicotine dependence, cigarettes, uncomplicated
CPT/HCPCS: 99212; 99214; G0463

== ENCOUNTER 2023-05-28 16:05 | Emergency (ER) | payer BC, SELFPAY ==
[2023-05-28 16:10] VITALS: BP 140/97; PULSE 82; RESP 18; TEMP 36.8; O2SAT 99; BMI 28.5
--- NOTE | 2023-05-28 16:15 | EXP.UTC ---
Discharge Plan Disposition Patient Disposition: Home, Self-Care Condition: Good Prescriptions Prescriptions: New benzonatate [benzonatate] 100 mg capsule 100 mg PO TIDP PRN (Reason: Cough) Qty: 30 0RF methylprednisolone 4 mg Tablets,Dose Pack 4 mg PO DIRECTED 6 Days Qty: 21 0RF Rx Instructions: Take 1 pack as directed for 6 days guaifenesin [Mucinex] 600 mg tablet extended release 12hr 600 - 1,200 mg PO BIDP PRN (Reason: Congestion) Qty: 30 0RF amoxicillin [amoxicillin] 875 mg tablet 875 mg PO Q12H Qty: 20 0RF No Action Emgality Syringe 300 mg/3 mL (100 mg/mL x 3) syringe 300 mg SQ QMONTH Rx Instructions: administer as three 100 mg injections at separate sites divalproex [Depakote] 500 mg tablet,delayed release (DR/EC) 500 mg PO BID estradiol valerate 20 mg/mL oil 30 mg IM Q4W Ubrelvy 100 mg tablet 100 mg PO NEEDED PRN (Reason: Migraines) almotriptan malate 12.5 mg tablet 12.5 mg PO DAILY Patient Comments: TAKE 1 TABLET BY MOUTH DIRECTED zolmitriptan 5 mg spray,non-aerosol 5 spray INTRANASAL NEEDED PRN (Reason: .) Referrals Follow up/Referrals: Rahul Mars [Primary Care Provider] - See instructions Activity Restrictions/Add. Instructions Additional Instructions/Restrictions: Drink plenty of fluids. Take tylenol or ibuprofen for pain or fever. Take the medications as directed. Follow up with your regular doctor. GO TO THE ER FOR ANY WORSENING SYMPTOMS Clinical Impressions Clinical Impression: Sinusitis Instructions Patient Instructions: DI for Sinusitis, Sinusitis Discharge ED Provider: Randy Hubbard [facility] General Stated complaint: poss sinus inf Time Seen by Provider: 05/28/23 16:15 History of Present Illness Provider Complaint: She states that for the past 2 weeks she has had worsening sinus congestion and ear pain. Related Data Home Medications Medication Instructions Recorded Confirmed ubrogepant 100 mg tablet (Ubrelvy) 100 mg PO NEEDED PRN Migraines 02/17/22 12/03/22 almotriptan malate 12.5 mg tablet 12.5 mg PO DAILY . 01/28/23 08/23/23 zolmitriptan 5 mg nasal spray 5 spray intranasal NEEDED PRN . 07/22/22 12/03/22 divalproex 500 mg tablet,delayed 500 mg PO BID 10/13/22 12/03/22 release (Depakote) galcanezumab-gnlm 300 mg/3 mL (100 300 mg SQ QMONTH 10/13/22 12/03/22 mg/mL x 3) subcutaneous syringe (Emgality) estradiol valerate 20 mg/mL 30 mg IM Q4W 01/16/23 01/16/23 intramuscular oil Previous Rx's Medication Instructions Recorded amoxicillin 875 mg tablet 875 mg PO Q12H #20 tabs 05/28/23 benzonatate 100 mg capsule 100 mg PO TIDP PRN Cough #30 caps 05/28/23 guaifenesin 600 mg tablet, 600 - 1,200 mg PO BIDP PRN 05/28/23 extended release 12 hr (Mucinex) Congestion #30 tabs methylprednisolone 4 mg tablets in 4 mg PO DIRECTED 6 days #21 tabs 05/28/23 a dose pack Allergies Allergy/AdvReac Type Severity Reaction Status Date / Time cephalexin [From KEFLEX] Allergy Unknown Hives Verified 05/28/23 16:27 [facility] Disclaimer: The information contained in this section may have been updated after the patient was seen, as this information can be updated by other users. Medical History Endometriosis Family history of breast cancer maternal aunts x 3 Family history of colon cancer in father and paternal grandmother Family history of melanoma mother Gastroenteritis Migraine Sinusitis MARCO ANTONIO (stress urinary incontinence, female) Vasomotor symptoms due to menopause Surgical History H/O shoulder surgery right x2 H/O wrist surgery left x2 History of appendectomy History of hysterectomy History of tonsillectomy S/P dilation and curettage S/P tympanic tube insertion Family History Father Hypertension Thyroid disorder Cancer bone, liver, colon Sister Thyroid disorder Family/Other Cancer Breast/Cancer Social History Smoking Status: Current every day smoker tobacco type: cigarettes packs per day: 1 second hand exposure: No alcohol intake: never current occupational status: employed Travel in the last 8 weeks: None household members: family ROS Obtained: Yes All systems reviewed & no additional complaints except as documented Constitutional Constitutional: Reports poor appetite Eyes Eyes: Reports system reviewed and no additional complaints, except as documented ENT Ears, Nose, Mouth, and Throat: Reports as per HPI Cardiovascular Cardiovascular: Reports system reviewed and no additional complaints, except as documented and Denies chest pain Respiratory Respiratory: Denies shortness of breath, Denies chest congestion, Reports cough, Denies stridor and Denies wheezing Gastrointestinal Gastrointestingal: Reports system reviewed and no additional complaints, except as documented; Denies abdominal pain, diarrhea or vomiting Musculoskeletal Musculoskeletal: Reports system reviewed and no additional complaints, except as documented and Denies arthralgias Integumentary/Breasts Skin/Breast: Reports system reviewed and no additional complaints, except as documented and Denies rash Neurologic Neurologic: Denies paresthesias Allergic/Immunologic Allergic/Immunologic: Denies wheezing Physical Exam General General appearance: alert and in no apparent distress Eye Eye exam: Present normal appearance, PERRL and EOMI ENT ENT exam: Present mucous membranes moist and normal external ear exam Expanded ENT Exam External ear exam: Present normal external inspection TM/Canal exam: Bilateral TM: erythema and bulging Nose exam: Absent sinus tenderness Nasal speculum exam: Bilateral: normal Mouth exam: Present normal external inspection; Absent drooling Teeth exam: Present normal inspection Throat exam: Present tonsillar erythema and tonsillomegaly Neck Neck exam: Present normal inspection, full ROM and trachea midline; Absent tenderness, lymphadenopathy or thyromegaly Chest Chest inspection: Present normal inspection and symmetric chest wall rise; Absent tenderness or rash Respiratory Respiratory exam: Present normal lung sounds bilaterally; Absent respiratory distress, wheezes, stridor or accessory muscle use Cardiovascular Cardiovascular exam: Present regular rate, normal rhythm and normal heart sounds Abdominal Exam Abdominal exam: Present soft; Absent distention, tenderness, guarding, rebound or rigidity Extremities Exam Extremities exam: Present normal inspection, full ROM and normal capillary refill; Absent tenderness or calf tenderness Back Exam Back exam: Present normal inspection and full ROM; Absent tenderness Neurological Exam Neurological exam: Present alert and oriented X3 Psychiatric Psychiatric exam: Present normal affect and normal mood Skin Skin exam: Present warm, dry, intact and normal color Lymphatic Lymphatic Findings: no adenopathy Medical Decision Making Medical Records Medical records reviewed: No I reviewed the patient's medical records. [place] Inquiry Pt receiving controlled substance: No
[2023-05-28 16:38] VITALS: BP 140/97; PULSE 82; RESP 18; TEMP 36.8; O2SAT 99
== END 2023-05-28 16:44 | disposition home or self-care (01) ==
PROVIDERS: Emergency Provider Nurse Practitioner Family; PCP Internal Medicine
DX: J01.90 Acute sinusitis, unspecified (principal); R09.81 Nasal congestion; H92.03 Otalgia, bilateral; F17.210 Nicotine dependence, cigarettes, uncomplicated
CPT/HCPCS: 99212; 99214; G0463

== ENCOUNTER 2023-06-04 23:27 | Emergency (ER) | payer BC, SELFPAY ==
[2023-06-04 23:29] VITALS: BP 159/108; PULSE 91; RESP 18; TEMP 36.7; O2SAT 97; BMI 28.1
--- NOTE | 2023-06-04 23:37 | CT_ITS ---
PROCEDURE INFORMATION: Exam: CT Head Without Contrast Exam date and time: 06/05/2023 12:06 AM Age: 47 years old Clinical indication: Pain; Headache; Other: N/a; Additional info: RESTREPO sudden onset TECHNIQUE: Imaging protocol: Computed tomography of the head without contrast. Radiation optimization: All CT scans at this facility use at least one of these dose optimization techniques: automated exposure control; mA and/or kV adjustment per patient size (includes targeted exams where dose is matched to clinical indication); or iterative reconstruction. COMPARISON: CT HEAD/BRAIN WO CON 06/10/2020 4:42 PM FINDINGS: Brain: Normal. No hemorrhage. Unremarkable white matter. No mass effect. Cerebral ventricles: No ventriculomegaly. Paranasal sinuses: Visualized sinuses are unremarkable. No fluid levels. Mastoid air cells: Visualized mastoid air cells are well aerated. Bones/joints: Unremarkable. No acute fracture. Soft tissues: Unremarkable. IMPRESSION: Stable noncontrast CT brain. No acute intracranial abnormality.
--- NOTE | 2023-06-04 23:38 | HMH.EDGENADL ---
Discharge Plan Disposition Patient Disposition: Home, Self-Care Condition: Good Prescriptions Prescriptions: No Action Emgality Syringe 300 mg/3 mL (100 mg/mL x 3) syringe 300 mg SQ QMONTH Rx Instructions: administer as three 100 mg injections at separate sites divalproex [Depakote] 500 mg tablet,delayed release (DR/EC) 500 mg PO BID estradiol valerate 20 mg/mL oil 30 mg IM Q4W Ubrelvy 100 mg tablet 100 mg PO NEEDED PRN (Reason: Migraines) almotriptan malate 12.5 mg tablet 12.5 mg PO DAILY Patient Comments: TAKE 1 TABLET BY MOUTH DIRECTED zolmitriptan 5 mg spray,non-aerosol 5 spray INTRANASAL NEEDED PRN (Reason: .) benzonatate [benzonatate] 100 mg capsule 100 mg PO TIDP PRN (Reason: Cough) Qty: 30 0RF methylprednisolone 4 mg Tablets,Dose Pack 4 mg PO DIRECTED 6 Days Qty: 21 0RF Rx Instructions: Take 1 pack as directed for 6 days guaifenesin [Mucinex] 600 mg tablet extended release 12hr 600 - 1,200 mg PO BIDP PRN (Reason: Congestion) Qty: 30 0RF amoxicillin [amoxicillin] 875 mg tablet 875 mg PO Q12H Qty: 20 0RF Referrals Follow up/Referrals: Rahul Mars [Primary Care Provider] - See instructions Activity Restrictions/Add. Instructions Additional Instructions/Restrictions: You were evaluated in the ER for concerns of headache. You had improvement of symptoms after receiving droperidol. Your workup was reassuring. You are appropriate for discharge at this time. Continue taking home medications as previously prescribed. Drink plenty of water. Follow-up with your primary care physician as soon as possible for reevaluation and to discuss ongoing headache management. Return to the ER with new, worsening, or otherwise concerning symptoms. Clinical Impressions Clinical Impression: Headache Qualifiers: Headache type: unspecified Headache chronicity pattern: unspecified pattern Intractability: not intractable Qualified Code(s): R51.9 - Headache, unspecified Discharge ED Provider: Alex Lorenzo General Adult HPI General Chief complaint: Headache Stated complaint: migraine, soa Time Seen by Provider: 06/04/23 23:30 History of Present Illness HPI narrative: 47-year-old female with a history of pancreatitis, migraines, prior status migrainosus presents to the ER with concerns of headache. Patient states approximately 1.5 hours prior to arrival while laying in bed she started having severe headache. She states it came on fast but did not describe it as thunderclap. She states it has progressively worsened. She states she usually has an aura with halo around lights and she has that this time but her vision is more hazy than normal describing it like standing in a smoky bar. Patient states she took her regular medications today including Ubrelvy tonight but has not had improvement of symptoms. She came to the ER for relief. She describes the pain as across her whole forehead. She does report sensitivity to light. Related Data Home Medications Medication Instructions Recorded Confirmed ubrogepant 100 mg tablet (Ubrelvy) 100 mg PO NEEDED PRN Migraines 02/17/22 12/03/22 almotriptan malate 12.5 mg tablet 12.5 mg PO DAILY . 05/10/22 12/03/22 zolmitriptan 5 mg nasal spray 5 spray intranasal NEEDED PRN . 07/22/22 12/03/22 divalproex 500 mg tablet,delayed 500 mg PO BID 10/13/22 12/03/22 release (Depakote) galcanezumab-gnlm 300 mg/3 mL (100 300 mg SQ QMONTH 10/13/22 12/03/22 mg/mL x 3) subcutaneous syringe (Emgality) estradiol valerate 20 mg/mL 30 mg IM Q4W 01/16/23 01/16/23 intramuscular oil Previous Rx's Medication Instructions Recorded amoxicillin 875 mg tablet 875 mg PO Q12H #20 tabs 05/28/23 benzonatate 100 mg capsule 100 mg PO TIDP PRN Cough #30 caps 05/28/23 guaifenesin 600 mg tablet, 600 - 1,200 mg PO BIDP PRN 05/28/23 extended release 12 hr (Mucinex) Congestion #30 tabs methylprednisolone 4 mg tablets in 4 mg PO DIRECTED 6 days #21 tabs 05/28/23 a dose pack Allergies Allergy/AdvReac Type Severity Reaction Status Date / Time cephalexin [From KEFLEX] Allergy Unknown Hives Verified 05/28/23 16:27 [facility], [facility] Disclaimer: The information contained in this section may have been updated after the patient was seen, as this information can be updated by other users. Medical History Endometriosis Family history of breast cancer maternal aunts x 3 Family history of colon cancer in father and paternal grandmother Family history of melanoma mother Gastroenteritis Migraine Sinusitis MARCO ANTONIO (stress urinary incontinence, female) Vasomotor symptoms due to menopause Surgical History H/O shoulder surgery right x2 H/O wrist surgery left x2 History of appendectomy History of hysterectomy History of tonsillectomy S/P dilation and curettage S/P tympanic tube insertion Family History Father Hypertension Thyroid disorder Cancer bone, liver, colon Sister Thyroid disorder Family/Other Cancer Breast/Cancer Social History Smoking Status: Current some day smoker tobacco type: cigarettes packs per day: 1 second hand exposure: No alcohol intake: never current occupational status: employed Travel in the last 8 weeks: None household members: family ROS Obtained: Yes All systems reviewed & no additional complaints except as documented Constitutional Constitutional: Denies chills, Denies fever(s), Reports headache(s) and Denies weakness Eyes Eyes: Denies change in vision ENT Ears, Nose, Mouth, and Throat: Denies dizziness, Reports headache(s), Denies nasal congestion and Denies sore throat Cardiovascular Cardiovascular: Denies chest pain, Denies dyspnea and Denies leg edema Respiratory Respiratory: Denies cough and Denies dyspnea Gastrointestinal Gastrointestingal: Denies constipation, diarrhea, nausea or vomiting Genitourinary Female Genitourinary: Denies dysuria Musculoskeletal Musculoskeletal: Denies arthralgias, Denies myalgias, Denies numbness and Denies tingling Integumentary/Breasts Skin/Breast: Denies change in pigmentation Neurologic Neurologic: Denies dizziness, Reports headache(s), Denies numbness, Reports other visual disturbances (Photophobia), Denies tingling and Denies weakness Physical Exam General General appearance: alert and in no apparent distress Head Head exam: atraumatic and normocephalic Eye Eye exam: Present PERRL, EOMI and other (No diplopia, peripheral vision intact) ENT ENT exam: Present mucous membranes moist Neck Neck exam: Present normal inspection and full ROM Chest Chest inspection: Present symmetric chest wall rise Respiratory Respiratory exam: Present normal lung sounds bilaterally; Absent respiratory distress or stridor Cardiovascular Cardiovascular exam: Present regular rate and normal rhythm Abdominal Exam Abdominal exam: Present soft; Absent distention or tenderness Extremities Exam Extremities exam: Present full ROM Neurological Exam Neurological exam: Present alert, oriented X3, CN II-XII intact, normal gait and other (GCS 15, no localizing deficits); Absent motor sensory deficit Psychiatric Psychiatric exam: Present normal affect and normal mood Skin Skin exam: Present warm and dry Medical Decision Making [place] Inquiry Pt receiving controlled substance: No Vital Signs: 06/04/23 23:29 Temperature 98.0 F Temperature Source Oral Pulse Rate [Left Radial] 91 H Respiratory Rate 18 Blood Pressure [Right Arm] 159/108 H Blood Pressure Mean [Right Arm] 125 Blood Pressure Source [Right Arm] Automatic Cuff Blood Pressure Position [Right Arm] Sitting 02 Sat by Pulse Oximetry 97 Oxygen Delivery Method Room Air Lab Data Lab Results 06/04/23 23:59: WBC 8.5, RBC 4.75, Hgb 12.9, Hct 40.9, MCV 86.1, MCH 27.2, MCHC 31.6 L, RDW 14.2, Plt Count 304, MPV 8.0, Neut % (Auto) 46.5, Lymph % (Auto) 43.5, Forrest % (Auto) 7.8, Eos % (Auto) 1.5, Baso % (Auto) 0.7, Neut # (Auto) 4.0, Lymph # (Auto) 3.7, Forrest # (Auto) 0.7, Eos # (Auto) 0.1, Baso # (Auto) 0.1, Sodium 140, Potassium 3.5, Chloride 106, Carbon Dioxide 27, Anion Gap 10.5, BUN 13, Creatinine 0.60, Estimated Creat Clear 153, Estimated GFR 108, Est GFR ( Amer) 131, Glucose 114 H, Calcium 9.2, Total Bilirubin 0.4, AST 36, ALT 27, Alkaline Phosphatase 76, Total Protein 6.7, Albumin 4.1, Globulin 2.6, Albumin/Globulin Ratio 1.6, Serum HCG, Qual Negative 06/04/23 23:59 06/04/23 23:59 Orders (Tests/Meds): ED MEDICATIONS Discontinued Medications Generic Name Dose Route Start Last Admin Trade Name Delisa PRN Reason Stop Dose Admin Acetaminophen 1,000 mg 06/04/23 23:37 06/05/23 00:09 Acetaminophen 1,000mg/100ml Vial IV 06/04/23 23:38 1,000 mg ONCE ONE Administration Droperidol 2.5 mg 06/05/23 00:26 06/05/23 00:40 Droperidol 5mg/2ml Vial IV 06/05/23 00:27 2.5 mg ONCE ONE Administration Lactated Ringer's 500 mls @ 999 mls/hr 06/04/23 23:37 06/05/23 00:06 Lactated Ringer's 1000 Ml Bag IV 06/05/23 00:07 Not Given .Q31M ONE Lactated Ringer's 1,000 mls @ 999 mls/hr 06/04/23 23:59 06/05/23 00:09 Lactated Ringer's 1000 Ml Bag IV 06/05/23 00:37 999 mls/hr .Q1H1M ONE Administration Ketorolac Tromethamine 15 mg 06/05/23 01:50 Ketorolac 30mg/Ml Vial IV 06/05/23 01:51 ONCE ONE Ondansetron HCl 4 mg 06/04/23 23:55 06/05/23 00:04 Ondansetron 4mg/2ml Vial IV 06/04/23 23:56 4 mg ONCE ONE Administration ORDERS Category Date Time Status CT head/brain wo con Stat Cat Scan 06/04/23 23:37 Completed POCUS Point of Care (ER Only) Stat Exams 06/04/23 23:44 Taken CBC w/Auto Diff [Complete Blood Count Auto Diff] Stat Lab 06/04/23 23:59 Completed CMP [Comprehensive Metabolic Panel] Stat Lab 06/04/23 23:59 Completed HCG Qualitative, Serum Stat Lab 06/04/23 23:59 Completed ECG initial [place] Routine Y 06/04/23 23:53 Completed Medical Decision Narrative: In summary, this 47year old female presents to the emergency department today with headache that has been severe in the last hour and a half along with hazy vision . On initial evaluation patient is hemodynamically stable, afebrile, GCS 15, no focal neurologic deficits, no discernible vision changes, diplopia, or other abnormalities on exam. Comorbidities of current condition include history of migraine and status migrainosus increasing patient's overall morbidity and likelihood of recurrence of the symptoms. Differential diagnosis includes but is not limited to migraine, tension headache, status migrainosus, migraine with aura, electrolyte abnormality, dehydration, leukocytosis, anemia, , I did also consider subarachnoid hemorrhage or spontaneous intracranial bleed because of the sudden nature of patient's headache and am pursuing this diagnosis with a CT head however I still believe it is more likely that this is a migraine given patient's history and exam. Based on these concerns, I ordered CT imaging, basic labs. ECG was ordered in anticipation of giving droperidol for migraine treatment. ECG personally interpreted demonstrates normal sinus rhythm, rate 87, normal axis, no interval abnormalities, no STEMI. Patient received IV Tylenol, IV Zofran, IV fluids for initial treatment. Labs personally reviewed demonstrate no leukocytosis or anemia, no actionable electrolyte abnormalities, no findings of kidney or liver dysfunction, test negative. CT head personally interpreted does not demonstrate any acute intracranial bleed, mass effect, or midline shift. On reassessment after CT scan patient continues having pain despite having received IV Tylenol and Zofran. I had already ordered ECG in anticipation of potentially giving droperidol so I did administer this medication. On further reassessment approximately 30 minutes after receiving the medication, patient symptoms are improved but not completely gone. Vision is already back to baseline. She received Toradol. Afterwards she had significant improvement of symptoms. She states she feels like she is able to go home but she is willing to wait the 2 hours recommended by hospital protocol. Patient's prescriptions were reviewed and no changes were made at this time. At the time of discharge patient continues to be stable with resolved symptoms. She is appropriate for discharge. Patient was given instructions on symptomatic management, follow up instructions, and return precautions for the emergency department. Patient indicated understanding and was discharged in stable condition. Procedures Miscellaneous Procedure Procedure Performed: Ultrasound-guided IV Consent provided: Verbal by patient Indication: Need for IV access in the setting of acute headache Recent benefits were discussed and patient consented to procedure. Details of procedure: 20-gauge IV placed in the right bicep under ultrasound guidance successfully on first attempt. Draws and flushes. Secured with Tegaderm. Patient tolerated procedure well. Critical Care Critical Care Time Critical Care Time: No
--- NOTE | 2023-06-04 23:53 | ECG_ITS ---
APPROVED REPORT Exam: Resting ECG HR:87 bpm ECG Measurements Heart Rate 87 AXES ME 172 P 74 QRSd 86 QRS 91 QT 388 T 82 QTc 432 Conclusion SINUS RHYTHM BORDERLINE RIGHT AXIS DEVIATION [QRS AXIS > 90] BORDERLINE ECG UNCONFIRMED REPORT Electronically signed by : Jerry Saul MD 06/05/2023 10:45:27
[2023-06-05] MEDS: ONDANSETRON 4MG/2ML VIAL 4 MG IV (00:04)
[2023-06-05] MEDS: ACETAMINOPHEN 1,000MG/100ML VIAL 1000 MG IV (00:09)
[2023-06-05] MEDS: LACTATED RINGERS 1000ML 1,000 ML 999 ML IV (00:09)
[2023-06-05 00:12] LABS: Basophils # 0.1 K/mm3 (0-0.2); Basophils % 0.7 % (0.1-2.0); Eosinophils # 0.1 K/mm3 (0.0-0.4); Eosinophils % 1.5 % (0.1-12.0); Hematocrit 40.9 % (37.0-47.0); Hemoglobin 12.9 g/dL (12.2-16.2); Lymphocytes # 3.7 K/mm3 (0.7-4.5); Lymphocytes % 43.5 % (10-50); Mean Corpuscular HGB Conc 31.6 g/dL (31.8-35.4); Mean Corpuscular Hemoglobin 27.2 pg (27.0-31.2); Mean Corpuscular Volume 86.1 fl (81-99); Monocytes # 0.7 K/mm3 (0.1-1.0); Monocytes % 7.8 % (1.7-9.3); Neutrophils % 46.5 % (37.0-80.0); Platelet Count 304 K/mm3 (142-424); Red Blood Count 4.75 M/mm3 (4.20-5.40); Red Cell Distribution Width 14.2 % (11.5-17.5); White Blood Count 8.5 K/mm3 (4.8-10.8)
[2023-06-05 00:17] LABS: Alanine Aminotransferase 27 U/L (12-78); Albumin Level 4.1 g/dl (3.5-5.0); Albumin/Globulin Ratio 1.6 (1.1-1.8); Alkaline Phosphatase 76 U/L (38-126); Anion Gap 10.5 mEq/L (5-15); Aspartate Amino Transferase 36 U/L (14-36); Bilirubin,Total 0.4 mg/dl (0.2-1.3); Blood Urea Nitrogen 13 mg/dl (7-17); Calcium 9.2 mg/dl (8.4-10.2); Carbon Dioxide 27 mmol/L (22.0-30.0); Chloride 106 mmol/L (98-107); Creatinine Clearance Estimated 153 mL/min (50-200); Estimated Glomerular Filt Rate 108 ml/min (>60); GFR (African American) 131 ML/MIN (>60); Globulin 2.6 g/dL (1.3-3.2); Glucose 114 mg/dl (74-100); Potassium 3.5 mmoL/L (3.5-5.1); Sodium 140 mmol/L (136-145); Total Protein,Serum 6.7 g/dl (6.3-8.2)
[2023-06-05 00:21] LABS: HCG Qualitative, Serum Negative (Negative)
[2023-06-05] MEDS: droPERidol 5MG/2ML VIAL 2.5 MG IV (00:40)
--- NOTE | 2023-06-05 00:48 | PC.NURSE ---
Assisted patient to Bathroom at this time.
[2023-06-05] MEDS: KETOROLAC 30MG/ML VIAL 15 MG IV (02:11)
[2023-06-05 02:20] VITALS: BP 130/74; PULSE 78; RESP 18; TEMP 36.7; O2SAT 98
== END 2023-06-05 02:36 | disposition home or self-care (01) ==
PROVIDERS: Emergency Provider Emergency Medicine; PCP Internal Medicine
DX: R51.9 Headache, unspecified (principal); R06.02 Shortness of breath; F17.210 Nicotine dependence, cigarettes, uncomplicated
CPT/HCPCS: 70450; 80053; 84703; 85025; 93005; 96361; 96374; 96375; 99285; J0131; J1790; J2405

== ENCOUNTER 2023-07-12 10:54 | Emergency (ER) | payer BC, SELFPAY ==
[2023-07-12] VITALS (12 sets, daily range): BP systolic 115–150; BP diastolic 83–102; PULSE 73–120; RESP 15–20; TEMP 36.7; O2SAT 96–98; BMI 28.1
--- NOTE | 2023-07-12 11:01 | HMH.EDGENADL ---
Discharge Plan Disposition Patient Disposition: Home, Self-Care Condition: Good Prescriptions Prescriptions: No Action Emgality Syringe 300 mg/3 mL (100 mg/mL x 3) syringe 300 mg SQ QMONTH Rx Instructions: administer as three 100 mg injections at separate sites divalproex [Depakote] 500 mg tablet,delayed release (DR/EC) 500 mg PO BID estradiol valerate 20 mg/mL oil 30 mg IM Q4W Ubrelvy 100 mg tablet 100 mg PO NEEDED PRN (Reason: Migraines) almotriptan malate 12.5 mg tablet 12.5 mg PO DAILY Patient Comments: TAKE 1 TABLET BY MOUTH DIRECTED zolmitriptan 5 mg spray,non-aerosol 5 spray INTRANASAL NEEDED PRN (Reason: .) benzonatate [benzonatate] 100 mg capsule 100 mg PO TIDP PRN (Reason: Cough) Qty: 30 0RF methylprednisolone 4 mg Tablets,Dose Pack 4 mg PO DIRECTED 6 Days Qty: 21 0RF Rx Instructions: Take 1 pack as directed for 6 days guaifenesin [Mucinex] 600 mg tablet extended release 12hr 600 - 1,200 mg PO BIDP PRN (Reason: Congestion) Qty: 30 0RF amoxicillin [amoxicillin] 875 mg tablet 875 mg PO Q12H Qty: 20 0RF Referrals Follow up/Referrals: Rahul Mars [Primary Care Provider] - See instructions Activity Restrictions/Add. Instructions Additional Instructions/Restrictions: As we discussed, I spoke with your surgeon and after discussion of your case it is safe to discharge you at this time, that being said if you have ongoing bleeding, your bleeding increases, you start to develop lightheadedness or weakness or bleeding elsewhere or new or worsening symptoms please return to the emergency department. You will be contacted by your surgeon's team to make an appointment for follow-up. Clinical Impressions Clinical Impression: Vaginal bleeding Instructions Patient Instructions: DI for Vaginal Bleeding Discharge ED Provider: Fredy Flores Adult HPI General Chief complaint: Urogenital-Female Stated complaint: extreme bleeding after bladder sling Time Seen by Provider: 07/12/23 11:01 History of Present Illness HPI narrative: Patient presents for evaluation of bright red painless vaginal bleeding that she noticed following attending zoroastrian this morning. She noticed a scant amount this morning. She is 2 weeks postoperative from a urethral sling surgery at outside facility. She denies any blood thinner use or bleeding disorders. No syncope or presyncope. No dysuria or frequency. She denies any hematuria that she has noticed. She denies any melena or hematochezia. She has soaked approximately 1 pad since she first noticed her symptoms. She otherwise reports an uncomplicated urethral sling surgery, with the exception of a small amount of postoperative vaginal discharge. She denies any tenderness, drainage, complications with her surgical incision site. Please note that above description of symptoms, in this electronic medical record under categorization of recalled from ER triage doctor by RN are reflective of an initial nursing assessment, however, is not reflective of my full history and physical exam that was personally taken and clarified. Consequentially, this preceding description of symptoms, which may include the patient's categorized chief complaint in the EMR, do not reflect my personal clinical impression, and the ultimate description of history of present illness and patient stated complaints should be deferred to this section of the note. Unless stated otherwise or congruent with this section of the note, additional signs, symptoms, or incongruence should be interpreted as inaccurate with my clinical impression. Related Data Home Medications Medication Instructions Recorded Confirmed ubrogepant 100 mg tablet (Ubrelvy) 100 mg PO NEEDED PRN Migraines 02/17/22 12/03/22 almotriptan malate 12.5 mg tablet 12.5 mg PO DAILY . 05/10/22 12/03/22 zolmitriptan 5 mg nasal spray 5 spray intranasal NEEDED PRN . 07/22/22 12/03/22 divalproex 500 mg tablet,delayed 500 mg PO BID 10/13/22 12/03/22 release (Depakote) galcanezumab-gnlm 300 mg/3 mL (100 300 mg SQ QMONTH 10/13/22 12/03/22 mg/mL x 3) subcutaneous syringe (Emgality) estradiol valerate 20 mg/mL 30 mg IM Q4W 01/16/23 01/16/23 intramuscular oil Previous Rx's Medication Instructions Recorded amoxicillin 875 mg tablet 875 mg PO Q12H #20 tabs 05/28/23 benzonatate 100 mg capsule 100 mg PO TIDP PRN Cough #30 caps 05/28/23 guaifenesin 600 mg tablet, 600 - 1,200 mg (1 - 2 x 600 mg) PO 05/28/23 extended release 12 hr (Mucinex) BIDP PRN Congestion #30 tabs methylprednisolone 4 mg tablets in 4 mg PO DIRECTED 6 days #21 tabs 05/28/23 a dose pack Allergies Allergy/AdvReac Type Severity Reaction Status Date / Time cephalexin [From KEFLEX] Allergy Unknown Hives Verified 05/28/23 16:27 [facility] Disclaimer: The information contained in this section may have been updated after the patient was seen, as this information can be updated by other users. Medical History Endometriosis Family history of breast cancer maternal aunts x 3 Family history of colon cancer in father and paternal grandmother Family history of melanoma mother Gastroenteritis Migraine Sinusitis MARCO ANTONIO (stress urinary incontinence, female) Vasomotor symptoms due to menopause Surgical History H/O shoulder surgery right x2 H/O wrist surgery left x2 History of appendectomy History of hysterectomy History of tonsillectomy S/P dilation and curettage S/P tympanic tube insertion Family History Father Hypertension Thyroid disorder Cancer bone, liver, colon Sister Thyroid disorder Family/Other Cancer Breast/Cancer Social History Smoking Status: Former smoker tobacco type: cigarettes packs per day: 1 second hand exposure: No alcohol intake: never current occupational status: employed Travel in the last 8 weeks: None household members: family ROS Obtained: Yes Systems reviewed as appropriate & no additional complaints except as documented As per HPI Physical Exam General General appearance: alert and in no apparent distress Head Head exam: atraumatic and normocephalic Eye Eye exam: Present normal appearance Neck Neck exam: Present normal inspection Chest Chest inspection: Present normal inspection and symmetric chest wall rise Respiratory Respiratory exam: Present normal lung sounds bilaterally; Absent respiratory distress Cardiovascular Cardiovascular exam: Present regular rate and normal rhythm Abdominal Exam Abdominal exam: Present soft; Absent tenderness Neurological Exam Neurological exam: Present alert and oriented X3 Psychiatric Psychiatric exam: Present normal affect and normal mood Skin Skin exam: Present warm and dry Medical Decision Making Medical Records Medical records reviewed: Yes I reviewed the patient's medical records. [place] Inquiry Pt receiving controlled substance: No Vital Signs: 07/12/23 10:55 07/12/23 11:03 07/12/23 11:31 Temperature 98.0 F Temperature Source Oral Pulse Rate 113 H 83 Pulse Rate [Left Radial] 95 H Respiratory Rate 15 Blood Pressure 150/102 H 132/83 Blood Pressure [Right Arm] 150/102 H Blood Pressure Mean Blood Pressure Mean [Right Arm] 118 02 Sat by Pulse Oximetry 98 97 97 Oxygen Delivery Method Room Air Room Air Room Air 07/12/23 12:00 07/12/23 12:31 07/12/23 13:00 Temperature Temperature Source Pulse Rate 120 H 79 81 Pulse Rate [Left Radial] Respiratory Rate 20 20 Blood Pressure 141/90 H 127/83 131/90 Blood Pressure [Right Arm] Blood Pressure Mean 107 103 Blood Pressure Mean [Right Arm] 02 Sat by Pulse Oximetry 97 98 96 Oxygen Delivery Method 07/12/23 13:30 07/12/23 14:12 07/12/23 14:30 Temperature Temperature Source Pulse Rate 77 80 78 Pulse Rate [Left Radial] Respiratory Rate 20 Blood Pressure 120/90 115/85 116/88 Blood Pressure [Right Arm] Blood Pressure Mean 95 Blood Pressure Mean [Right Arm] 02 Sat by Pulse Oximetry 98 98 96 Oxygen Delivery Method Room Air 07/12/23 15:01 07/12/23 15:30 07/12/23 15:47 Temperature 98.0 F Temperature Source Oral Pulse Rate 78 73 88 Pulse Rate [Left Radial] Respiratory Rate 20 16 Blood Pressure 131/91 H 129/86 129/86 Blood Pressure [Right Arm] Blood Pressure Mean 90 Blood Pressure Mean [Right Arm] 02 Sat by Pulse Oximetry 97 97 Oxygen Delivery Method Room Air Room Air Lab Data Lab Results 07/12/23 10:11: Urine Color Yellow, Urine Appearance Clear, Urine pH 6.5, Ur Specific [place] 1.010, Urine Protein Negative, Urine Glucose (UA) Negative, Urine Ketones Negative, Urine Blood 3+, Urine Nitrate Negative, Urine Bilirubin Negative, Urine Urobilinogen 0.2, Ur Leukocyte Esterase 1+ A, Urine RBC 3-5, Urine WBC 3-5, Ur Squamous Epith Cells 3-5, Urine Bacteria Trace 07/12/23 11:13: WBC 6.4, RBC 5.56 H, Hgb 15.0, Hct 48.6 H, MCV 87.5, MCH 27.0, MCHC 30.8 L, RDW 13.9, Plt Count 266, MPV 8.6, Neut % (Auto) 39.3, Lymph % (Auto) 51.4 H, Davison % (Auto) 7.9, Eos % (Auto) 1.3, Baso % (Auto) 4.4 H, Neut # (Auto) 2.5, Lymph # (Auto) 3.3, Davison # (Auto) 0.5, Eos # (Auto) 0.1, Baso # (Auto) 0.3 H, Total Counted 100, Neutrophils % (Manual) 44, Lymphocytes % (Manual) 46, Monocytes % (Manual) 9, Eosinophils % (Manual) 1, Platelet Estimate Normal, RBC Morphology Normal, PT 10.5, INR 0.97, Sodium 141, Potassium 3.9, Chloride 103, Carbon Dioxide 29, Anion Gap 12.9, BUN 12, Creatinine 0.60, Estimated Creat Clear 153, Estimated GFR 108, Est GFR ( Amer) 131, Glucose 82, Calcium 10.3 H, Total Bilirubin 0.4, AST 26, ALT 23, Alkaline Phosphatase 73, Total Protein 8.0, Albumin 5.0, Globulin 3.0, Albumin/Globulin Ratio 1.7, Serum HCG, Qual Positive, HCG, Quant 5 07/12/23 11:30: Blood Type O Positive, Antibody Screen Negative 07/12/23 11:13 07/12/23 11:13 Orders (Tests/Meds): ED MEDICATIONS Discontinued Medications Generic Name Dose Route Start Last Admin Trade Name Freq PRN Reason Stop Dose Admin Iopamidol 100 ml 07/12/23 12:24 07/12/23 12:25 Iopamidol-370 (76%);100ml Bottle IV 07/12/23 12:25 100 ml ONCE ONE Administration Sodium Chloride 50 ml 07/12/23 12:24 07/12/23 12:25 0.9 % Sodium Chloride 50 Ml Vial IV 07/12/23 12:25 50 ml ONCE ONE Administration Sodium Chloride 10 ml 07/12/23 12:24 07/12/23 12:25 Sodium Chloride 0.9% 10ml Syr (Rad Only) IV 08/11/23 12:23 10 ml NEEDED PRN Administration Maintain IV Site ORDERS Category Date Time Status Type and Screen Stat BBK 07/12/23 11:[address] angio abdomen pelvis Stat Cat Scan 07/12/23 12:04 Completed Beta HCG, Quant [HCG,Quantitative] Stat Lab 07/12/23 11:13 Completed CBC w/Auto Diff [Complete Blood Count Auto Diff] Stat Lab 07/12/23 11:13 Completed CMP [Comprehensive Metabolic Panel] Stat Lab 07/12/23 11:13 Completed HCG Qualitative, Serum Stat Lab 07/12/23 11:13 Completed PT INR [Prothrombin Time INR] Stat Lab 07/12/23 11:13 Completed Urinalysis and Microscopic Stat Lab 07/12/23 10:11 Completed Urine Culture Stat Micro 07/12/23 10:11 Received Medical Decision Narrative: Patient with history and exam per above presenting for evaluation of vaginal bleeding Diagnoses considered include postoperative infection, hemorrhage, cystitis, abscess, among others, overall patient at this time is clinically nontoxic-appearing, denying any tenderness to palpation, hemodynamically stable and bleeding has slowed down since presentation. ED workup and treatment included: ED MEDICATIONS Discontinued Medications Generic Name Dose Route Start Last Admin Trade Name Freq PRN Reason Stop Dose Admin Iopamidol 100 ml 07/12/23 12:24 07/12/23 12:25 Iopamidol-370 (76%);100ml Bottle IV 07/12/23 12:25 100 ml ONCE ONE Administration Sodium Chloride 50 ml 07/12/23 12:24 07/12/23 12:25 0.9 % Sodium Chloride 50 Ml Vial IV 07/12/23 12:25 50 ml ONCE ONE Administration Sodium Chloride 10 ml 07/12/23 12:24 07/12/23 12:25 Sodium Chloride 0.9% 10ml Syr (Rad Only) IV 08/11/23 12:23 10 ml NEEDED PRN Administration Maintain IV Site ORDERS Category Date Time Status Type and Screen Stat BBK 07/12/23 11:[address] angio abdomen pelvis Stat Cat Scan 07/12/23 12:04 Completed Beta HCG, Quant [HCG,Quantitative] Stat Lab 07/12/23 11:13 Completed CBC w/Auto Diff [Complete Blood Count Auto Diff] Stat Lab 07/12/23 11:13 Completed CMP [Comprehensive Metabolic Panel] Stat Lab 07/12/23 11:13 Completed HCG Qualitative, Serum Stat Lab 07/12/23 11:13 Completed PT INR [Prothrombin Time INR] Stat Lab 07/12/23 11:13 Completed Urinalysis and Microscopic Stat Lab 07/12/23 10:11 Completed Urine Culture Stat Micro 07/12/23 10:11 Received Labs were independently interpreted by me, significant for no acute anemia, hCG initially positive, quantitative 5 patient was informed of this result, status post hysterectomy as well as BSO, will follow-up with WAREHOUSE ADMINISTRATOR regarding this finding. Imaging was independently visualized and interpreted by me, significant for trace amount of. blush adjacent to vaginal cuff. no intra-abdominal hemorrhage. Please refer to radiology report for full details. I discussed the case with outside ANIMATION DIRECTOR surgeon who operated on this patient. After discussion regarding management and disposition as well as clinical status, patient is deemed stable at this time for discharge with outpatient follow-up. The patient was informed that new or worsening symptoms require repeat evaluation. She expressed an understanding and agreement with this plan. Critical Care Critical Care Time Critical Care Time: No
[2023-07-12 11:23] LABS: Microscopic, Urine URINE MICROSCOPIC (MICROSCOPIC)
[2023-07-12 11:25] LABS: Appearance,Urine CLEAR (Clear); Bilirubin,Urine Negative (Negative); Blood, Urine 3+ (Negative); Color,Urine YELLOW (Yellow); Glucose,Urine (UA) Negative (Negative); Ketones,Urine Negative (Negative); Leukocyte Esterase,Urine 1+ (Negative); Nitrate,Urine Negative (Negative); PH,Urine 6.5 (5.0-8.5); Protein,Urine Negative (Negative); Urobilinogen,Urine 0.2 EU/dl (0.2)
[2023-07-12 11:27] LABS: Basophils # 0.3 K/mm3 (0-0.2); Basophils % 4.4 % (0.1-2.0); Eosinophils # 0.1 K/mm3 (0.0-0.4); Eosinophils % 1.3 % (0.1-12.0); Hematocrit 48.6 % (37.0-47.0); Lymphocytes # 3.3 K/mm3 (0.7-4.5); Lymphocytes % 51.4 % (10-50); Mean Corpuscular HGB Conc 30.8 g/dL (31.8-35.4); Mean Corpuscular Volume 87.5 fl (81-99); Mean Platelet Volume 8.6 fl (7.4-10.4); Monocytes # 0.5 K/mm3 (0.1-1.0); Monocytes % 7.9 % (1.7-9.3); Neutrophils # 2.5 K/mm3 (1.8-7.8); Neutrophils % 39.3 % (37.0-80.0); Platelet Count 266 K/mm3 (142-424); Red Blood Count 5.56 M/mm3 (4.20-5.40); Red Cell Distribution Width 13.9 % (11.5-17.5); White Blood Count 6.4 K/mm3 (4.8-10.8)
[2023-07-12 11:31] LABS: MANUAL DIFFERENTIAL MANUAL DIFFERENTIAL (MANUAL DIFF)
[2023-07-12 11:32] LABS: Alanine Aminotransferase 23 U/L (12-78); Albumin/Globulin Ratio 1.7 (1.1-1.8); Alkaline Phosphatase 73 U/L (38-126); Anion Gap 12.9 mEq/L (5-15); Aspartate Amino Transferase 26 U/L (14-36); Bilirubin,Total 0.4 mg/dl (0.2-1.3); Blood Urea Nitrogen 12 mg/dl (7-17); Calcium 10.3 mg/dl (8.4-10.2); Carbon Dioxide 29 mmol/L (22.0-30.0); Chloride 103 mmol/L (98-107); Creatinine Clearance Estimated 153 mL/min (50-200); Estimated Glomerular Filt Rate 108 ml/min (>60); GFR (African American) 131 ML/MIN (>60); Glucose 82 mg/dl (74-100); Potassium 3.9 mmoL/L (3.5-5.1); Sodium 141 mmol/L (136-145)
[2023-07-12 11:33] LABS: INR 0.97 (0.9-1.1); Prothrombin Time 10.5 seconds (10.1-12.5)
[2023-07-12 11:50] LABS: HCG Qualitative, Serum Positive (Negative)
--- NOTE | 2023-07-12 11:58 | PC.NURSE ---
paging for vaginal ultrasound
[2023-07-12 12:02] LABS: Bacteria,Urine Trace /lpf
--- NOTE | 2023-07-12 12:04 | CT_ITS ---
PROCEDURE INFORMATION: Exam: CTA Abdomen and Pelvis With Contrast Exam date and time: 07/12/2023 12:16 PM Age: 47 years old Clinical indication: Other: Brb per vagina. Prior surgery; Surgery date: <1 month; Surgery type: 2wk postop bladder sling. Full hysterectomy; Additional info: 2wk postop bladder sling, brb per vagina TECHNIQUE: Imaging protocol: Computed tomographic angiography of the abdomen and pelvis with contrast. Exam focused on the arteries. 3D rendering (Not supervised by radiologist): MIP and/or 3D reconstructed images were created by the technologist. Radiation optimization: All CT scans at this facility use at least one of these dose optimization techniques: automated exposure control; mA and/or kV adjustment per patient size (includes targeted exams where dose is matched to clinical indication); or iterative reconstruction. Contrast material: ISOVUE; Contrast volume: 100 ml; Contrast route: INTRAVENOUS (IV); COMPARISON: CT ABDOMEN PELVIS W CON 08/10/2020 8:55 AM FINDINGS: Aorta: No aortic aneurysm. No aortic dissection. Celiac trunk and mesenteric arteries: No occlusion or significant stenosis. Renal arteries: No occlusion or significant stenosis. Right iliac arteries: No occlusion or significant stenosis. Left iliac arteries: No occlusion or significant stenosis. Liver: No mass. Gallbladder and bile ducts: Unremarkable. No calcified stones. No ductal dilation. Pancreas: Unremarkable. No mass. No ductal dilation. Spleen: Unremarkable. No splenomegaly. Adrenal glands: Unremarkable. No mass. Kidneys and ureters: Unremarkable. No solid mass. No hydronephrosis. Stomach and bowel: Unremarkable. No obstruction. No mucosal thickening. Appendix: No evidence of appendicitis. Intraperitoneal space: Unremarkable. No free air. No significant fluid collection. Lymph nodes: Unremarkable. No enlarged lymph nodes. Urinary bladder: Unremarkable. No mass. Reproductive: Faint hyperdensity in the vagina, may be hemorrhage. No CT evidence of active extravasation. Bones/joints: No acute fracture. Soft tissues: Unremarkable. IMPRESSION: Faint hyperdensity in the vagina, may be hemorrhage. No CT evidence of active extravasation.
[2023-07-12 12:10] LABS: HCG,Quantitative 5 mIU/ml (0-5.42)
[2023-07-12] MEDS: SODIUM CHLORIDE 0.9% 10ML SYR (RAD ONLY) 10 ML IV (12:25)
[2023-07-12] MEDS: IOPAMIDOL-370 (76%);100ML BOTTLE 100 ML IV (12:25)
[2023-07-12] MEDS: 0.9 % SODIUM CHLORIDE 50 ML VIAL IV (12:25)
--- NOTE | 2023-07-12 12:37 | PC.NURSE ---
Rounded on patient, helped patient with needs voiced at this time.
[2023-07-12 12:43] LABS: Eosinophils % 1 % (0-3); Lymphocytes % 46 % (10-50); Monocytes % 9 % (2-9); Neutrophils % 44 % (42-76); Total Cells Counted 100
[2023-07-12 12:44] LABS: Platelet Estimate Normal; RBC Morphology Normal
--- NOTE | 2023-07-12 13:28 | PC.NURSE ---
called radiology who reports that scans are assigned
--- NOTE | 2023-07-12 13:38 | PC.NURSE ---
Rounded on patient, helped patient with needs voiced at this time.
--- NOTE | 2023-07-12 14:38 | PC.NURSE ---
placed call to Dr Kimberly Newman for ob/gyn nurse consult
--- NOTE | 2023-07-12 14:56 | PC.NURSE ---
removed pt IV after complaint of painful, site was swollen and red, pt states she had contrast through her IV and after it hurt, PT given ice pack to place on site
--- NOTE | 2023-07-12 15:36 | PC.NURSE ---
Dr Newman speaking to Dr Flores
--- NOTE | 2023-07-15 12:02 | PC.NURSE ---
discussed urine results with , contaminated, NTD
== END 2023-07-12 15:48 | disposition home or self-care (01) ==
PROVIDERS: Emergency Provider Emergency Medicine; PCP Internal Medicine
DX: N93.9 Abnormal uterine and vaginal bleeding, unspecified (principal); B95.4 Other streptococcus as the cause of diseases classified elsewhere; Z87.891 Personal history of nicotine dependence
CPT/HCPCS: 74174; 80053; 81001; 84702; 84703; 85007; 85025; 85610; 86850; 87086; 99284; Q9967

== ENCOUNTER 2023-08-04 08:57 | Emergency (ER) | payer BC, SELFPAY ==
[2023-08-04 09:40] VITALS: BP 131/91; PULSE 79; RESP 19; TEMP 36.8; O2SAT 98; BMI 31.0
--- NOTE | 2023-08-04 10:01 | EXP.UTC ---
Discharge Plan Disposition Patient Disposition: Home, Self-Care Condition: Good Prescriptions Prescriptions: New amoxicillin 875 mg tablet 875 mg PO BID 10 Days Qty: 20 0RF fluticasone propionate [Flonase Allergy Relief] 50 mcg/actuation spray,suspension 2 spray intranasal DAILY Qty: 16 0RF Rx Instructions: administer into each nostril daily No Action Emgality Syringe 300 mg/3 mL (100 mg/mL x 3) syringe 300 mg SQ QMONTH Rx Instructions: administer as three 100 mg injections at separate sites divalproex [Depakote] 500 mg tablet,delayed release (DR/EC) 500 mg PO BID estradiol valerate 20 mg/mL oil 30 mg IM Q4W Ubrelvy 100 mg tablet 100 mg PO NEEDED PRN (Reason: Migraines) almotriptan malate 12.5 mg tablet 12.5 mg PO DAILY Patient Comments: TAKE 1 TABLET BY MOUTH DIRECTED Linzess 145 mcg capsule 145 mcg PO DAILY Patient Comments: TAKE 1 CAPSULE BY MOUTH EVERY MORNING 30 TO 60 MINUTES BEFORE A MEAL zolmitriptan 5 mg spray,non-aerosol 5 spray INTRANASAL NEEDED PRN (Reason: .) Referrals Follow up/Referrals: Rahul Mars [Primary Care Provider] - See instructions Activity Restrictions/Add. Instructions Additional Instructions/Restrictions: *Monitor Temp, Over the counter Motrin or Tylenol as directed/as needed Tylenol every 4 hours and Motrin every 6 hours (as long as your family doctor has told you that you can take it) for fever or pain. and straight to ER if unable to lower temp less than 101.0 after medication given *Take medication as prescribed *Sleep elevated *Cool Mist Humidifier/Vaporizer *Flonase 2 sprays in each nostril daily but be aware that it may take 2-3 days before you notice improvement Follow up IMMEDIATELY for new or worsening symptoms or no Noticeable improvement over the next 48-72 hours. 911 for difficulty breathing or swallowing Clinical Impressions Clinical Impression: Otitis media Instructions Patient Instructions: Middle Ear Infection Discharge ED Provider: Radha Yee [facility] [place] General Stated complaint: left ear pain Mode of Arrival: Ambulatory Source of Information: Patient Limitations: No Limitations Time Seen by Provider: 08/04/23 10:03 Description of Symptoms (Recalled from Triage Doc. by RN): Pt's symptoms are left ear pain. HEENT Symptoms (Recalled from RN notes): Yes Resp Symptoms (Recalled from RN notes): No Skin Symptoms (Recalled from RN notes): No MS Symptoms (Recalled from RN notes): No Functional Status (Recalled from RN notes): n/a History of Present Illness Provider Complaint: Patient states that she has been having pain and pressure in her left ear that has continued to get worse so today when she was still having pain and pressure she came in to get checked Related Data Home Medications Medication Instructions Recorded Confirmed ubrogepant 100 mg tablet (Ubrelvy) 100 mg PO NEEDED PRN Migraines 02/17/22 08/04/23 almotriptan malate 12.5 mg tablet 12.5 mg PO DAILY . 05/10/22 08/04/23 zolmitriptan 5 mg nasal spray 5 spray intranasal NEEDED PRN . 07/22/22 08/04/23 divalproex 500 mg tablet,delayed 500 mg PO BID 10/13/22 08/04/23 release (Depakote) galcanezumab-gnlm 300 mg/3 mL (100 300 mg SQ QMONTH 10/13/22 08/04/23 mg/mL x 3) subcutaneous syringe (Emgality) estradiol valerate 20 mg/mL 30 mg IM Q4W 01/16/23 08/04/23 intramuscular oil linaclotide 145 mcg capsule 145 mcg PO DAILY 08/04/23 08/04/23 (Linzess) Previous Rx's Medication Instructions Recorded amoxicillin 875 mg tablet 875 mg PO BID 10 days #20 tabs 08/04/23 fluticasone propionate 50 2 spray intranasal DAILY #16 grams 08/04/23 mcg/actuation nasal spray,suspension (Flonase Allergy Relief) Allergies Allergy/AdvReac Type Severity Reaction Status Date / Time cephalexin [From KEFLEX] Allergy Unknown Hives Verified 08/04/23 09:51 Worker's Comp Is this a Worker's Comp case?: No [facility] Disclaimer: The information contained in this section may have been updated after the patient was seen, as this information can be updated by other users. Medical History Endometriosis Family history of breast cancer maternal aunts x 3 Family history of colon cancer in father and paternal grandmother Family history of melanoma mother Gastroenteritis Migraine Sinusitis MARCO ANTONIO (stress urinary incontinence, female) Vasomotor symptoms due to menopause Surgical History H/O shoulder surgery right x2 H/O wrist surgery left x2 History of appendectomy History of hysterectomy History of tonsillectomy S/P dilation and curettage S/P tympanic tube insertion Family History Father Hypertension Thyroid disorder Cancer bone, liver, colon Sister Thyroid disorder Family/Other Cancer Breast/Cancer Social History Smoking Status: Former smoker tobacco type: cigarettes packs per day: 1 second hand exposure: No alcohol intake: never current occupational status: employed Travel in the last 8 weeks: None household members: family ROS Obtained: Yes All systems reviewed & no additional complaints except as documented and Yes Systems reviewed as appropriate & no additional complaints except as documented Constitutional Constitutional: Reports system reviewed and no additional complaints, except as documented and Reports as per HPI ENT Ears, Nose, Mouth, and Throat: Reports system reviewed and no additional complaints, except as documented, Reports as per HPI and Reports otalgia Cardiovascular Cardiovascular: Reports system reviewed and no additional complaints, except as documented and Reports as per HPI Respiratory Respiratory: Reports system reviewed and no additional complaints, except as documented and Reports as per HPI Gastrointestinal Gastrointestingal: Reports system reviewed and no additional complaints, except as documented and as per HPI Physical Exam General General appearance: alert and in no apparent distress ENT ENT exam: Present mucous membranes moist Expanded ENT Exam TM/Canal exam: Left TM: erythema and bulging Respiratory Respiratory exam: Present normal lung sounds bilaterally; Absent respiratory distress or wheezes Cardiovascular Cardiovascular exam: Present regular rate, normal rhythm and normal heart sounds Neurological Exam Neurological exam: Present alert, oriented X3 and normal gait Medical Decision Making [place] Inquiry Pt receiving controlled substance: No [place] was queried for this patient: No Vital Signs: 08/04/23 09:40 Temperature 98.2 F Temperature Source Oral Pulse Rate [Right Radial] 79 Respiratory Rate 19 Blood Pressure [Right Arm] 131/91 H Blood Pressure Mean [Right Arm] 104 Blood Pressure Source [Right Arm] Automatic Cuff Blood Pressure Position [Right Arm] Sitting 02 Sat by Pulse Oximetry 98 Oxygen Delivery Method Room Air Medical Decision Narrative: Patient states she is allergic to cephalexin but has take amoxicillin without reactions or complications
[2023-08-04 10:20] VITALS: BP 131/91; PULSE 79; RESP 19; TEMP 36.8; O2SAT 98
== END 2023-08-04 10:20 | disposition home or self-care (01) ==
PROVIDERS: Emergency Provider Nurse Practitioner; PCP Internal Medicine
DX: H66.92 Otitis media, unspecified, left ear (principal)
CPT/HCPCS: 99212; 99214; G0463

== ENCOUNTER 2023-09-05 18:24 | Emergency (ER) | payer BC, SELFPAY ==
[2023-09-05 19:30] VITALS: BP 131/87; PULSE 79; RESP 20; TEMP 36.7; O2SAT 97; BMI 28.0
--- NOTE | 2023-09-05 19:59 | ED_ITS ---
Discharge Plan Disposition Patient Disposition: Home, Self-Care Condition: Good Prescriptions Prescriptions: No Action Emgality Syringe 300 mg/3 mL (100 mg/mL x 3) syringe 300 mg SQ QMONTH Rx Instructions: administer as three 100 mg injections at separate sites divalproex [Depakote] 500 mg tablet,delayed release (DR/EC) 500 mg PO BID estradiol valerate 20 mg/mL oil 30 mg IM Q4W Ubrelvy 100 mg tablet 100 mg PO NEEDED PRN (Reason: Migraines) almotriptan malate 12.5 mg tablet 12.5 mg PO DAILY Patient Comments: TAKE 1 TABLET BY MOUTH DIRECTED Linzess 145 mcg capsule 145 mcg PO DAILY Patient Comments: TAKE 1 CAPSULE BY MOUTH EVERY MORNING 30 TO 60 MINUTES BEFORE A MEAL fluticasone propionate [Flonase Allergy Relief] 50 mcg/actuation spray ,suspension 2 spray intranasal DAILY Qty: 16 0RF Rx Instructions: administer into each nostril daily zolmitriptan 5 mg spray,non-aerosol 5 spray INTRANASAL NEEDED PRN (Reason: .) Referrals Follow up/Referrals: Provider,Referral, MD [Primary Care Provider] - See instructions Activity Restrictions/Add. Instructions Additional Instructions/Restrictions: Follow up with PCP next week. Clinical Impressions Clinical Impression: Migraine Qualifiers: Migraine type: with aura Status migrainosus presence: with status migrainosus Intractability: not intractable Qualified Code(s): G43.101 - Migraine with aura, not intractable, with status migrainosus Instructions Patient Instructions: DI for Headache, DI for Migraine Discharge ED Provider: Lori Ling [facility] [place] General Stated complaint: headache Time Seen by Provider: 09/05/23 19:59 History of Present Illness Provider Complaint: Pt relates that she has taken everything that she can for a migraine and continues to have a headache of 7/10. Related Data Home Medications Medication Instructions Recorded Confirmed ubrogepant 100 mg tablet (Ubrelvy) 100 mg PO NEEDED PRN Migraines 02/17/22 09/05/23 almotriptan malate 12.5 mg tablet 12.5 mg PO DAILY . 05/10/22 09/05/23 zolmitriptan 5 mg nasal spray 5 spray intranasal NEEDED PRN . 07/22/22 09/05/23 divalproex 500 mg tablet,delayed 500 mg PO BID 10/13/22 09/05/23 release (Depakote) galcanezumab-gnlm 300 mg/3 mL (100 300 mg SQ QMONTH 10/13/22 09/05/23 mg/mL x 3) subcutaneous syringe (Emgality) estradiol valerate 20 mg/mL 30 mg IM Q4W 01/16/23 09/05/23 intramuscular oil linaclotide 145 mcg capsule 145 mcg PO DAILY 08/04/23 09/05/23 (Linzess) Previous Rx's Medication Instructions Recorded fluticasone propionate 50 2 spray intranasal DAILY #16 grams 08/04/23 mcg/actuation nasal spray,suspension (Flonase Allergy Relief) Allergies Allergy/AdvReac Type Severity Reaction Status Date / Time cephalexin [From KEFLEX] Allergy Unknown Hives Verified 09/05/23 20:09 [facility] Disclaimer: The information contained in this section may have been updated after the patient was seen, as this information can be updated by other users. Medical History Endometriosis Family history of breast cancer maternal aunts x 3 Family history of colon cancer in father and paternal grandmother Family history of melanoma mother Gastroenteritis Migraine Sinusitis MARCO ANTONIO (stress urinary incontinence, female) Vasomotor symptoms due to menopause Surgical History H/O shoulder surgery right x2 H/O wrist surgery left x2 History of appendectomy History of hysterectomy History of tonsillectomy S/P dilation and curettage S/P tympanic tube insertion Family History Father Hypertension Thyroid disorder Cancer bone, liver, colon Sister Thyroid disorder Family/Other Cancer Breast/Cancer Social History Smoking Status: Former smoker tobacco type: cigarettes packs per day: 1 second hand exposure: No alcohol intake: never current occupational status: employed Travel in the last 8 weeks: None household members: family ROS Obtained: Yes All systems reviewed & no additional complaints except as documented Constitutional Constitutional: Reports system reviewed and no additional complaints, except as documented and Reports headache(s) Eyes Eyes: Reports system reviewed and no additional complaints, except as documented ENT Ears, Nose, Mouth, and Throat: Reports system reviewed and no additional complaints, except as documented and Reports headache(s) Cardiovascular Cardiovascular: Reports system reviewed and no additional complaints, except as documented Respiratory Respiratory: Reports system reviewed and no additional complaints, except as documented Gastrointestinal Gastrointestingal: Reports system reviewed and no additional complaints, except as documented Genitourinary Female Genitourinary: Reports system reviewed and no additional complaints, except as documented Musculoskeletal Musculoskeletal: Reports system reviewed and no additional complaints, except as documented Integumentary/Breasts Skin/Breast: Reports system reviewed and no additional complaints, except as documented Neurologic Neurologic: Reports system reviewed and no additional complaints, except as documented and Reports headache(s) Endocrine Endocrine: Reports system reviewed and no additional complaints, except as documented Hematologic/Lymphatic Henatologic/Lymphatic: Reports system reviewed and no additional complaints, except as documented Allergic/Immunologic Allergic/Immunologic: Reports system reviewed and no additional complaints, except as documented Physical Exam General General appearance: alert Comment: appears in pain Head Head exam: atraumatic and normocephalic Eye Eye exam: Present normal appearance ENT ENT exam: Present normal exam Neck Neck exam: Present normal inspection Chest Chest inspection: Present normal inspection and symmetric chest wall rise Respiratory Respiratory exam: Present normal lung sounds bilaterally Cardiovascular Cardiovascular exam: Present regular rate and normal rhythm Abdominal Exam Abdominal exam: Present soft Extremities Exam Extremities exam: Present normal inspection Back Exam Back exam: Present normal inspection Neurological Exam Neurological exam: Present alert, oriented X3 and CN II-XII intact Psychiatric Psychiatric exam: Present normal affect and normal mood Skin Skin exam: Present warm, dry and intact Lymphatic Lymphatic Findings: no adenopathy Medical Decision Making [place] Inquiry Pt receiving controlled substance: No [place] was queried for this patient: No
[2023-09-05] MEDS: DEXAMETHASONE 4MG/ML 1ML VIAL 4 MG IM (20:20)
[2023-09-05] MEDS: KETOROLAC 30MG/ML VIAL 30 MG IM (20:30)
--- NOTE | 2023-09-05 20:30 | PC.NURSE ---
Pt stated that she took 600mg of ibuprofen about 6 hours ago. I called and spoke with German BATES from [facility] and stated it was fine to give her 60 mg of toradol.
[2023-09-05 20:42] VITALS: BP 131/87; PULSE 79; RESP 20; TEMP 36.7; O2SAT 97
== END 2023-09-05 20:42 | disposition home or self-care (01) ==
PROVIDERS: Emergency Provider Nurse Practitioner Family
DX: G43.101 Migraine with aura, not intractable, with status migrainosus (principal)
CPT/HCPCS: 96372; 99212; 99214; G0463

== ENCOUNTER 2023-09-16 08:12 | Emergency (ER) | payer BC, SELFPAY ==
[2023-09-16 08:15] VITALS: BP 129/86; PULSE 76; RESP 18; TEMP 36.8; O2SAT 99; BMI 28.1
--- NOTE | 2023-09-16 08:51 | ED_ITS ---
Discharge Plan Disposition Patient Disposition: Home, Self-Care Condition: Good Prescriptions Prescriptions: New methylprednisolone 4 mg Tablets,Dose Pack 4 mg PO DIRECTED 6 Days Qty: 21 0RF Rx Instructions: Take 1 pack as directed for 6 days benzonatate 100 mg capsule 100 mg PO TIDP PRN (Reason: Cough) Qty: 30 0RF amoxicillin-pot clavulanate 875-125 mg Tablet 1 tab PO Q12H Qty: 20 0RF No Action Emgality Syringe 300 mg/3 mL (100 mg/mL x 3) syringe 300 mg SQ QMONTH Rx Instructions: administer as three 100 mg injections at separate sites divalproex [Depakote] 500 mg tablet,delayed release (DR/EC) 500 mg PO BID estradiol valerate 20 mg/mL oil 30 mg IM Q4W Ubrelvy 100 mg tablet 100 mg PO NEEDED PRN (Reason: Migraines) almotriptan malate 12.5 mg tablet 12.5 mg PO DAILY Patient Comments: TAKE 1 TABLET BY MOUTH DIRECTED Linzess 145 mcg capsule 145 mcg PO DAILY Patient Comments: TAKE 1 CAPSULE BY MOUTH EVERY MORNING 30 TO 60 MINUTES BEFORE A MEAL fluticasone propionate [Flonase Allergy Relief] 50 mcg/actuation spray,suspension 2 spray intranasal DAILY Qty: 16 0RF Rx Instructions: administer into each nostril daily zolmitriptan 5 mg spray,non-aerosol 5 spray INTRANASAL NEEDED PRN (Reason: .) Referrals Follow up/Referrals: Rahul Mars [Primary Care Provider] - See instructions Activity Restrictions/Add. Instructions Additional Instructions/Restrictions: Drink plenty of fluids. Take tylenol or ibuprofen for pain or fever. Take the medications as directed. Follow up with your regular doctor. GO TO THE ER FOR ANY WORSENING SYMPTOMS Clinical Impressions Clinical Impression: Bronchitis, Sinusitis Instructions Patient Instructions: Sinusitis, DI for Sinusitis Discharge ED Provider: Randy Hubbard [facility] General Stated complaint: headache, pressure Mode of Arrival: Ambulatory Source of Information: Patient Limitations: No Limitations Time Seen by Provider: 09/16/23 08:50 Description of Symptoms (Recalled from Triage Doc. by RN): Pt's symptoms cough, and sinus pressure. HEENT Symptoms (Recalled from RN notes): Yes Resp Symptoms (Recalled from RN notes): No Skin Symptoms (Recalled from RN notes): No MS Symptoms (Recalled from RN notes): No Functional Status (Recalled from RN notes): n/a History of Present Illness Provider Complaint: She states that for the past 2 weeks she has had sinus congestion. She is now having chest congestion and a productive cough. Related Data Home Medications Medication Instructions Recorded Confirmed ubrogepant 100 mg tablet (Ubrelvy) 100 mg PO NEEDED PRN Migraines 02/17/22 09/16/23 almotriptan malate 12.5 mg tablet 12.5 mg PO DAILY . 05/10/22 09/16/23 zolmitriptan 5 mg nasal spray 5 spray intranasal NEEDED PRN . 07/22/22 09/16/23 divalproex 500 mg tablet,delayed 500 mg PO BID 10/13/22 09/16/23 release (Depakote) galcanezumab-gnlm 300 mg/3 mL (100 300 mg SQ QMONTH 10/13/22 09/16/23 mg/mL x 3) subcutaneous syringe (Emgality) estradiol valerate 20 mg/mL 30 mg IM Q4W 01/16/23 09/16/23 intramuscular oil linaclotide 145 mcg capsule 145 mcg PO DAILY 08/04/23 09/16/23 (Linzess) Previous Rx's Medication Instructions Recorded fluticasone propionate 50 2 spray intranasal DAILY #16 grams 08/04/23 mcg/actuation nasal spray,suspension (Flonase Allergy Relief) amoxicillin 875 mg-potassium 1 tab PO Q12H #20 tabs 09/16/23 clavulanate 125 mg tablet benzonatate 100 mg capsule 100 mg PO TIDP PRN Cough #30 caps 09/16/23 methylprednisolone 4 mg tablets in 4 mg PO DIRECTED 6 days #21 tabs 09/16/23 a dose pack Allergies Allergy/AdvReac Type Severity Reaction Status Date / Time cephalexin [From KEFLEX] Allergy Unknown Hives Verified 09/16/23 08:25 Worker's Comp Is this a Worker's Comp case?: No PFSH [facility] Disclaimer: The information contained in this section may have been updated after the patient was seen, as this information can be updated by other users. Medical History Endometriosis Family history of breast cancer maternal aunts x 3 Family history of colon cancer in father and paternal grandmother Family history of melanoma mother Gastroenteritis Migraine Sinusitis MARCO ANTONIO (stress urinary incontinence, female) Vasomotor symptoms due to menopause Surgical History H/O shoulder surgery right x2 H/O wrist surgery left x2 History of appendectomy History of hysterectomy History of tonsillectomy S/P dilation and curettage S/P tympanic tube insertion Family History Father Hypertension Thyroid disorder Cancer bone, liver, colon Sister Thyroid disorder Family/Other Cancer Breast/Cancer Social History Smoking Status: Former smoker tobacco type: cigarettes packs per day: 1 second hand exposure: No alcohol intake: never current occupational status: employed Travel in the last 8 weeks: None household members: family ROS Obtained: Yes All systems reviewed & no additional complaints except as documented Constitutional Constitutional: Reports poor appetite Eyes Eyes: Reports system reviewed and no additional complaints, except as documented ENT Ears, Nose, Mouth, and Throat: Reports as per HPI Cardiovascular Cardiovascular: Reports system reviewed and no additional complaints, except as documented and Denies chest pain Respiratory Respiratory: Denies shortness of breath, Reports chest congestion, Reports cough, Denies stridor and Denies wheezing Gastrointestinal Gastrointestingal: Reports system reviewed and no additional complaints, except as documented; Denies abdominal pain, diarrhea or vomiting Musculoskeletal Musculoskeletal: Reports system reviewed and no additional complaints, except as documented and Denies arthralgias Integumentary/Breasts Skin/Breast: Reports system reviewed and no additional complaints, except as documented and Denies rash Neurologic Neurologic: Denies paresthesias Allergic/Immunologic Allergic/Immunologic: Denies wheezing Physical Exam General General appearance: alert and in no apparent distress Head Head exam: atraumatic, normocephalic and normal inspection Eye Eye exam: Present normal appearance, PERRL and EOMI ENT ENT exam: Present normal exam, normal oropharynx, mucous membranes moist, TM's normal bilaterally and normal external ear exam Neck Neck exam: Present normal inspection, full ROM and trachea midline; Absent meningismus or lymphadenopathy Chest Chest inspection: Present normal inspection and symmetric chest wall rise; Absent tenderness Respiratory Respiratory exam: Present normal lung sounds bilaterally; Absent respiratory distress Cardiovascular Cardiovascular exam: Present regular rate and normal rhythm; Absent JVD Abdominal Exam Abdominal exam: Present soft and normal bowel sounds; Absent distention, tenderness or guarding Extremities Exam Extremities exam: Present normal inspection, full ROM and normal capillary refill; Absent calf tenderness Back Exam Back exam: Present normal inspection; Absent tenderness Neurological Exam Neurological exam: Present alert and oriented X3 Psychiatric Psychiatric exam: Present normal affect and normal mood Skin Skin exam: Present warm, dry, intact and normal color Lymphatic Lymphatic Findings: no adenopathy Medical Decision Making Medical Records Medical records reviewed: No I reviewed the patient's medical records. [place] Inquiry Pt receiving controlled substance: No Vital Signs: 09/16/23 08:15 Temperature 98.2 F Temperature Source Oral Pulse Rate [Right Radial] 76 Respiratory Rate 18 Blood Pressure [Right Arm] 129/86 Blood Pressure Mean [Right Arm] 100 Blood Pressure Source [Right Arm] Automatic Cuff Blood Pressure Position [Right Arm] Sitting 02 Sat by Pulse Oximetry 99 Oxygen Delivery Method Room Air Lab Data Lab results reviewed: Yes I reviewed the patient's lab results.
[2023-09-16 09:02] VITALS: BP 129/86; PULSE 76; RESP 18; TEMP 36.8; O2SAT 99
== END 2023-09-16 09:02 | disposition home or self-care (01) ==
PROVIDERS: Emergency Provider Nurse Practitioner Family; PCP Internal Medicine
DX: J20.9 Acute bronchitis, unspecified (principal); J01.90 Acute sinusitis, unspecified; R51.9 Headache, unspecified; R05.9 Cough, unspecified; Z87.891 Personal history of nicotine dependence
CPT/HCPCS: 99212; 99214; G0463

== ENCOUNTER 2023-09-21 12:19 | Emergency (ER) | payer BC, SELFPAY ==
[2023-09-21 12:40] VITALS: BP 130/85; PULSE 84; RESP 18; TEMP 36.9; O2SAT 98; BMI 27.6
--- NOTE | 2023-09-21 13:11 | EXP.UTC ---
Discharge Plan Disposition Patient Disposition: Home, Self-Care Condition: Good Prescriptions Prescriptions: New azithromycin [Zithromax] 250 mg tablet 250 mg PO UD DOSE PK Qty: 6 0RF Rx Instructions: Take two (2) tablets today, then one (1) tablet days #2 thru #5 No Action Emgality Syringe 300 mg/3 mL (100 mg/mL x 3) syringe 300 mg SQ QMONTH Rx Instructions: administer as three 100 mg injections at separate sites divalproex [Depakote] 500 mg tablet,delayed release (DR/EC) 500 mg PO BID estradiol valerate 20 mg/mL oil 30 mg IM Q4W Ubrelvy 100 mg tablet 100 mg PO NEEDED PRN (Reason: Migraines) almotriptan malate 12.5 mg tablet 12.5 mg PO DAILY Patient Comments: TAKE 1 TABLET BY MOUTH DIRECTED Linzess 145 mcg capsule 145 mcg PO DAILY Patient Comments: TAKE 1 CAPSULE BY MOUTH EVERY MORNING 30 TO 60 MINUTES BEFORE A MEAL fluticasone propionate [Flonase Allergy Relief] 50 mcg/actuation spray,suspension 2 spray intranasal DAILY Qty: 16 0RF Rx Instructions: administer into each nostril daily zolmitriptan 5 mg spray,non-aerosol 5 spray INTRANASAL NEEDED PRN (Reason: .) methylprednisolone 4 mg Tablets,Dose Pack 4 mg PO DIRECTED 6 Days Qty: 21 0RF Rx Instructions: Take 1 pack as directed for 6 days benzonatate 100 mg capsule 100 mg PO TIDP PRN (Reason: Cough) Qty: 30 0RF amoxicillin-pot clavulanate 875-125 mg Tablet 1 tab PO Q12H Qty: 20 0RF Referrals Follow up/Referrals: Rahul Mars [Primary Care Provider] - See instructions Activity Restrictions/Add. Instructions Additional Instructions/Restrictions: Drink plenty of fluids. Take tylenol or ibuprofen for pain or fever. stop the amoxicillin, start the azithromycin. Take the medications as directed. Follow up with your regular doctor. GO TO THE ER FOR ANY WORSENING SYMPTOMS Clinical Impressions Clinical Impression: Acute bronchitis, Viral syndrome Instructions Patient Instructions: DI for Acute Bronchitis, DI for Viral Syndrome Discharge ED Provider: Randy Hubbard [facility] [place] HPI General Stated complaint: sore throat, cough Mode of Arrival: Ambulatory Source of Information: Patient Limitations: No Limitations Time Seen by Provider: 09/21/23 13:10 Description of Symptoms (Recalled from Triage Doc. by RN): Pt's symptoms are runny nose, sore throat, and cough. HEENT Symptoms (Recalled from RN notes): Yes Resp Symptoms (Recalled from RN notes): No Skin Symptoms (Recalled from RN notes): No MS Symptoms (Recalled from RN notes): No Functional Status (Recalled from RN notes): n/a History of Present Illness Provider Complaint: She states that for the past 5 days she has had chest congestion, cough and malaise. She is not getting better on the antibiotic that she is on. Related Data Home Medications Medication Instructions Recorded Confirmed ubrogepant 100 mg tablet (Ubrelvy) 100 mg PO NEEDED PRN Migraines 02/17/22 09/21/23 almotriptan malate 12.5 mg tablet 12.5 mg PO DAILY . 05/10/22 09/21/23 zolmitriptan 5 mg nasal spray 5 spray intranasal NEEDED PRN . 07/22/22 09/21/23 divalproex 500 mg tablet,delayed 500 mg PO BID 10/13/22 09/21/23 release (Depakote) galcanezumab-gnlm 300 mg/3 mL (100 300 mg SQ QMONTH 10/13/22 09/21/23 mg/mL x 3) subcutaneous syringe (Emgality) estradiol valerate 20 mg/mL 30 mg IM Q4W 01/16/23 09/21/23 intramuscular oil linaclotide 145 mcg capsule 145 mcg PO DAILY 08/04/23 09/21/23 (Linzess) Previous Rx's Medication Instructions Recorded fluticasone propionate 50 2 spray intranasal DAILY #16 grams 08/04/23 mcg/actuation nasal spray,suspension (Flonase Allergy Relief) amoxicillin 875 mg-potassium 1 tab PO Q12H #20 tabs 09/16/23 clavulanate 125 mg tablet benzonatate 100 mg capsule 100 mg PO TIDP PRN Cough #30 caps 09/16/23 methylprednisolone 4 mg tablets in 4 mg PO DIRECTED 6 days #21 tabs 09/16/23 a dose pack azithromycin 250 mg tablet 250 mg PO UD DOSE PK #6 tabs 09/21/23 (Zithromax) Allergies Allergy/AdvReac Type Severity Reaction Status Date / Time cephalexin [From KEFLEX] Allergy Unknown Hives Verified 09/21/23 12:58 Worker's Comp Is this a Worker's Comp case?: No [facility] Disclaimer: The information contained in this section may have been updated after the patient was seen, as this information can be updated by other users. Medical History Endometriosis Family history of breast cancer maternal aunts x 3 Family history of colon cancer in father and paternal grandmother Family history of melanoma mother Gastroenteritis Migraine Sinusitis MARCO ANTONIO (stress urinary incontinence, female) Vasomotor symptoms due to menopause Surgical History H/O shoulder surgery right x2 H/O wrist surgery left x2 History of appendectomy History of hysterectomy History of tonsillectomy S/P dilation and curettage S/P tympanic tube insertion Family History Father Hypertension Thyroid disorder Cancer bone, liver, colon Sister Thyroid disorder Family/Other Cancer Breast/Cancer Social History Smoking Status: Former smoker tobacco type: cigarettes packs per day: 1 second hand exposure: No alcohol intake: never current occupational status: employed Travel in the last 8 weeks: None household members: family ROS Obtained: Yes All systems reviewed & no additional complaints except as documented Constitutional Constitutional: Reports poor appetite Eyes Eyes: Reports system reviewed and no additional complaints, except as documented ENT Ears, Nose, Mouth, and Throat: Reports as per HPI Cardiovascular Cardiovascular: Reports system reviewed and no additional complaints, except as documented and Denies chest pain Respiratory Respiratory: Denies shortness of breath, Reports chest congestion, Reports cough, Denies stridor and Denies wheezing Gastrointestinal Gastrointestingal: Reports system reviewed and no additional complaints, except as documented; Denies abdominal pain, diarrhea or vomiting Musculoskeletal Musculoskeletal: Reports system reviewed and no additional complaints, except as documented and Denies arthralgias Integumentary/Breasts Skin/Breast: Reports system reviewed and no additional complaints, except as documented and Denies rash Neurologic Neurologic: Denies paresthesias Allergic/Immunologic Allergic/Immunologic: Denies wheezing Physical Exam General General appearance: alert and in no apparent distress Eye Eye exam: Present normal appearance, PERRL and EOMI ENT ENT exam: Present mucous membranes moist and normal external ear exam Expanded ENT Exam External ear exam: Present normal external inspection TM/Canal exam: Bilateral TM: erythema and bulging Nose exam: Absent sinus tenderness Nasal speculum exam: Bilateral: normal Mouth exam: Present normal external inspection; Absent drooling Teeth exam: Present normal inspection Throat exam: Present tonsillar erythema and tonsillomegaly Neck Neck exam: Present normal inspection, full ROM and trachea midline; Absent tenderness, lymphadenopathy or thyromegaly Chest Chest inspection: Present normal inspection and symmetric chest wall rise; Absent tenderness or rash Respiratory Respiratory exam: Present normal lung sounds bilaterally; Absent respiratory distress, wheezes, stridor or accessory muscle use Cardiovascular Cardiovascular exam: Present regular rate, normal rhythm and normal heart sounds Abdominal Exam Abdominal exam: Present soft; Absent distention, tenderness, guarding, rebound or rigidity Extremities Exam Extremities exam: Present normal inspection, full ROM and normal capillary refill; Absent tenderness or calf tenderness Back Exam Back exam: Present normal inspection and full ROM; Absent tenderness Neurological Exam Neurological exam: Present alert and oriented X3 Psychiatric Psychiatric exam: Present normal affect and normal mood Skin Skin exam: Present warm, dry, intact and normal color Lymphatic Lymphatic Findings: no adenopathy Medical Decision Making Medical Records Medical records reviewed: No I reviewed the patient's medical records. [place] Inquiry Pt receiving controlled substance: No Vital Signs: 09/21/23 12:40 Temperature 98.4 F Temperature Source Oral Pulse Rate [Right Radial] 84 Respiratory Rate 18 Blood Pressure [Right Arm] 130/85 Blood Pressure Mean [Right Arm] 100 Blood Pressure Source [Right Arm] Automatic Cuff Blood Pressure Position [Right Arm] Sitting 02 Sat by Pulse Oximetry 98 Oxygen Delivery Method Room Air Lab Data Lab results reviewed: Yes I reviewed the patient's lab results.
[2023-09-21 13:21] LABS: UTC Strep Screen (Rapid) Negative (Negative)
[2023-09-21 14:20] VITALS: BP 130/85; PULSE 84; RESP 18; TEMP 36.9; O2SAT 98
--- NOTE | 2023-09-21 14:26 | PC.NURSE ---
sent full up at 14:22
[2023-09-21 14:34] LABS: Coronavirus 19, PCR Not Detected (NotDetected); Influenza A, PCR Not Detected (NotDetected); Influenza B, PCR Not Detected (NotDetected)
== END 2023-09-21 14:20 | disposition home or self-care (01) ==
PROVIDERS: Emergency Provider Nurse Practitioner Family; PCP Internal Medicine
DX: J20.9 Acute bronchitis, unspecified (principal); R07.0 Pain in throat; R05.9 Cough, unspecified; R09.81 Nasal congestion; B34.9 Viral infection, unspecified
CPT/HCPCS: 87636; 87880; 99212; 99214; G0463

== ENCOUNTER 2023-10-13 17:46 | Emergency (ER) | payer BC, SELFPAY ==
[2023-10-13 17:50] VITALS: BP 145/88; PULSE 94; RESP 20; TEMP 36.8; O2SAT 97; BMI 27.8
--- NOTE | 2023-10-13 17:59 | ED_ITS ---
Discharge Plan Disposition Patient Disposition: Home, Self-Care Condition: Good Prescriptions Prescriptions: New triamcinolone acetonide 0.5 % cream 1 applic topical TID Qty: 30 0RF No Action Emgality Syringe 300 mg/3 mL (100 mg/mL x 3) syringe 300 mg SQ QMONTH Rx Instructions: administer as three 100 mg injections at separate sites divalproex [Depakote] 500 mg tablet,delayed release (DR/EC) 500 mg PO BID Nurtec ODT 75 mg tablet,disintegrating 75 mg PO DAILYP PRN (Reason: Migraine Headache) Referrals Follow up/Referrals: Rahul Mars [Primary Care Provider] - See instructions Activity Restrictions/Add. Instructions Additional Instructions/Restrictions: Do not use steroid cream longer than 2 weeks or use on face as it can discolor the skin. Avoid scratching. If symptoms persist or worsen, return to clinic or go to PCP. Clinical Impressions Clinical Impression: Contact dermatitis and other eczema due to plants (except food) Instructions Patient Instructions: DI for Poison Nathan Allergy, Poisonous Plants: [place], [place], and [place]: Beware the Oils Discharge ED Provider: Lori Ling [facility] General Stated complaint: Poison nathan all over body Mode of Arrival: Ambulatory Source of Information: Patient Limitations: No Limitations Time Seen by Provider: 10/13/23 17:58 Description of Symptoms (Recalled from Triage Doc. by RN): PATIENT C/O POSSIBLE POISON NATHAN/OAK RASH THAT STARTED THURSDAY HEENT Symptoms (Recalled from RN notes): No Resp Symptoms (Recalled from RN notes): No Skin Symptoms (Recalled from RN notes): Yes MS Symptoms (Recalled from RN notes): No Functional Status (Recalled from RN notes): WNL History of Present Illness Provider Complaint: Pt reports that she has gotten into poison nathan and has it on her face, neck, and bilateral arms. Pt reports that the rash started on Thursday. Related Data Home Medications Medication Instructions Recorded Confirmed divalproex 500 mg tablet,delayed 500 mg PO BID 10/13/22 10/13/23 release (Depakote) galcanezumab-gnlm 300 mg/3 mL (100 300 mg SQ QMONTH 10/13/22 10/13/23 mg/mL x 3) subcutaneous syringe (Emgality) rimegepant 75 mg disintegrating 75 mg PO DAILYP PRN Migraine 10/13/23 10/13/23 tablet (Nurtec ODT) Headache Previous Rx's Medication Instructions Recorded triamcinolone acetonide 0.5 % 1 applic topical TID #30 grams 10/13/23 topical cream Allergies Allergy/AdvReac Type Severity Reaction Status Date / Time cephalexin [From KEFLEX] Allergy Unknown Hives Verified 09/21/23 12:58 Worker's Comp Is this a Worker's Comp case?: No PFSH PFS Disclaimer: The information contained in this section may have been updated after the patient was seen, as this information can be updated by other users. Medical History Endometriosis Family history of breast cancer maternal aunts x 3 Family history of colon cancer in father and paternal grandmother Family history of melanoma mother Gastroenteritis Migraine Sinusitis MARCO ANTONIO (stress urinary incontinence, female) Vasomotor symptoms due to menopause Surgical History H/O shoulder surgery right x2 H/O wrist surgery left x2 History of appendectomy History of hysterectomy History of tonsillectomy S/P dilation and curettage S/P tympanic tube insertion Family History Father Hypertension Thyroid disorder Cancer bone, liver, colon Sister Thyroid disorder Family/Other Cancer Breast/Cancer Social History Smoking Status: Former smoker tobacco type: cigarettes packs per day: 1 second hand exposure: No alcohol intake: never current occupational status: employed Travel in the last 8 weeks: None household members: family ROS Obtained: Yes All systems reviewed & no additional complaints except as documented Constitutional Constitutional: Reports system reviewed and no additional complaints, except as documented Eyes Eyes: Reports system reviewed and no additional complaints, except as documented ENT Ears, Nose, Mouth, and Throat: Reports system reviewed and no additional complaints, except as documented Cardiovascular Cardiovascular: Reports system reviewed and no additional complaints, except as documented Respiratory Respiratory: Reports system reviewed and no additional complaints, except as documented Gastrointestinal Gastrointestingal: Reports system reviewed and no additional complaints, except as documented Genitourinary Female Genitourinary: Reports system reviewed and no additional complaints, except as documented Musculoskeletal Musculoskeletal: Reports system reviewed and no additional complaints, except as documented Integumentary/Breasts Skin/Breast: Reports system reviewed and no additional complaints, except as documented, Reports pruritus and Reports rash Neurologic Neurologic: Reports system reviewed and no additional complaints, except as documented Endocrine Endocrine: Reports system reviewed and no additional complaints, except as documented Hematologic/Lymphatic Henatologic/Lymphatic: Reports system reviewed and no additional complaints, except as documented Allergic/Immunologic Allergic/Immunologic: Reports system reviewed and no additional complaints, except as documented Physical Exam General General appearance: alert and in no apparent distress Head Head exam: atraumatic and normocephalic Eye Eye exam: Present normal appearance ENT ENT exam: Present normal exam Neck Neck exam: Present normal inspection Chest Chest inspection: Present normal inspection and symmetric chest wall rise Respiratory Respiratory exam: Present normal lung sounds bilaterally Cardiovascular Cardiovascular exam: Present regular rate, normal rhythm and normal heart sounds Abdominal Exam Abdominal exam: Present soft and normal bowel sounds Extremities Exam Extremities exam: Present normal inspection Back Exam Back exam: Present normal inspection Neurological Exam Neurological exam: Present alert and oriented X3 Psychiatric Psychiatric exam: Present normal affect and normal mood Skin Skin exam: Present warm, dry and rash Expanded Skin Exam Type of lesion: Present rash Distribution: face, neck, LUE and RUE Description: Present erythematous, macular and papular Lymphatic Lymphatic Findings: no adenopathy Medical Decision Making [place] Inquiry Pt receiving controlled substance: No [place] was queried for this patient: No Vital Signs: 10/13/23 17:50 Temperature 98.2 F Temperature Source Oral Pulse Rate [Left Brachial] 94 H Respiratory Rate 20 Blood Pressure [Left Arm] 145/88 H Blood Pressure Mean [Left Arm] 107 Blood Pressure Source [Left Arm] Automatic Cuff Blood Pressure Position [Left Arm] Sitting 02 Sat by Pulse Oximetry 97 Oxygen Delivery Method Room Air
[2023-10-13] MEDS: DEXAMETHASONE 4MG/ML 1ML VIAL 4 MG IM (18:05)
[2023-10-13 18:09] VITALS: BP 145/88; PULSE 94; RESP 20; TEMP 36.8; O2SAT 97
== END 2023-10-13 18:15 | disposition home or self-care (01) ==
PROVIDERS: Emergency Provider Nurse Practitioner Family; PCP Internal Medicine
DX: L23.7 Allergic contact dermatitis due to plants, except food (principal); W60.XXXA Contact with nonvenomous plant thorns and spines and sharp leaves, initial encounter
CPT/HCPCS: 96372; 99212; 99214; G0463; J1100

== ENCOUNTER 2023-12-06 13:03 | Emergency (ER) | payer BC, SELFPAY ==
[2023-12-06 13:29] VITALS: BP 145/99; PULSE 101; RESP 20; TEMP 36.8; O2SAT 98; BMI 28.1
--- NOTE | 2023-12-06 13:49 | EXP.UTC ---
Discharge Plan Disposition Patient Disposition: Home, Self-Care Condition: Good Prescriptions Prescriptions: New azithromycin [Zithromax] 250 mg tablet 250 mg PO UD DOSE PK Qty: 6 0RF Rx Instructions: Take two (2) tablets today, then one (1) tablet days #2 thru #5 benzonatate 100 mg capsule 100 mg PO TIDP PRN (Reason: Cough) Qty: 30 0RF methylprednisolone 4 mg Tablets,Dose Pack 4 mg PO DIRECTED 6 Days Qty: 21 0RF Rx Instructions: Take 1 pack as directed for 6 days No Action Emgality Pen 120 mg/mL pen injector 120 mg SQ MONTHLY PRN (Reason: migraines) divalproex 500 mg tablet extended release 24 hr 500 mg PO BID Patient Comments: TAKE 1 TABLET BY MOUTH TWICE DAILY Linzess 145 mcg capsule PO PRN Patient Comments: TAKE 1 CAPSULE BY MOUTH EVERY MORNING 30 TO 60 MINUTES BEFORE A MEAL Nurtec ODT 75 mg tablet,disintegrating 75 mg PO DAILYP PRN (Reason: Migraine Headache) sumatriptan succinate [Imitrex] 6 mg/0.5 mL Pen Injector 6 mg SQ NEEDED PRN (Reason: migraines) Referrals Follow up/Referrals: Rahul Mars [Primary Care Provider] - See instructions Activity Restrictions/Add. Instructions Additional Instructions/Restrictions: Drink plenty of fluids. Take tylenol or ibuprofen for pain or fever. Take the medications as directed. Follow up with your regular doctor. GO TO THE ER FOR ANY WORSENING SYMPTOMS Clinical Impressions Clinical Impression: Acute bronchitis, Sinusitis Stand Alone Forms Stand Alone Forms: Work/School Release Instructions Patient Instructions: Sinusitis, DI for Sinusitis Print Language Print Language: Sinhala Discharge ED Provider: Randy Hubbard [facility] [place] General Stated complaint: cough, head congestion Mode of Arrival: Ambulatory Source of Information: Patient Limitations: No Limitations Time Seen by Provider: 12/06/23 13:49 Description of Symptoms (Recalled from Triage Doc. by RN): Pt reports cough, congestion, feeling SOA for approx 1 week. HEENT Symptoms (Recalled from RN notes): No Resp Symptoms (Recalled from RN notes): Yes (reports feeling SOA, cough) Skin Symptoms (Recalled from RN notes): No MS Symptoms (Recalled from RN notes): No Functional Status (Recalled from RN notes): n/a Related Data Home Medications ?Medication ?Instructions ?Recorded ?Confirmed rimegepant 75 mg disintegrating 75 mg PO DAILYP PRN Migraine 10/13/23 12/06/23 tablet (Nurtec ODT) Headache divalproex 500 mg tablet,extended 500 mg PO BID 11/19/23 12/06/23 release 24 hr galcanezumab-gnlm 120 mg/mL 120 mg SQ MONTHLY PRN migraines 11/19/23 11/19/23 subcutaneous pen injector (Emgality Pen) linaclotide 145 mcg capsule mcg PO PRN 11/19/23 11/19/23 (Linzess) sumatriptan succinate 6 mg/0.5 mL 6 mg SQ NEEDED PRN migraines 12/06/23 12/06/23 subcutaneous pen injector Previous Rx's ?Medication ?Instructions ?Recorded azithromycin 250 mg tablet 250 mg PO UD DOSE PK #6 tabs 12/06/23 (Zithromax) benzonatate 100 mg capsule 100 mg PO TIDP PRN Cough #30 caps 12/06/23 methylprednisolone 4 mg tablets in 4 mg PO DIRECTED 6 days #21 tabs 12/06/23 a dose pack Allergies Allergy/AdvReac Type Severity Reaction Status Date / Time cephalexin [From KEFLEX] Allergy Unknown Hives Verified 11/19/23 09:37 Worker's Comp Is this a Worker's Comp case?: [facility] Disclaimer: The information contained in this section may have been updated after the patient was seen, as this information can be updated by other users. Medical History (Updated 12/06/23 @ 13:58 by Randy Hubbard APRN) RLQ abdominal pain MARCO ANTONIO (stress urinary incontinence, female) Vasomotor symptoms due to menopause Family history of colon cancer in father Family history of melanoma Family history of breast cancer Endometriosis Migraine Sinusitis Gastroenteritis Surgical History (Reviewed 11/19/23 @ 09:37 by Spencer Oneill
[2023-12-06 14:05] VITALS: BP 145/99; PULSE 101; RESP 20; TEMP 36.8; O2SAT 98
== END 2023-12-06 14:05 | disposition home or self-care (01) ==
PROVIDERS: Emergency Provider Nurse Practitioner Family; PCP Internal Medicine
DX: J20.9 Acute bronchitis, unspecified (principal); J01.90 Acute sinusitis, unspecified; R06.02 Shortness of breath
CPT/HCPCS: 99212; 99214; G0463

== ENCOUNTER 2023-12-21 16:55 | Emergency (ER) | payer BC, SELFPAY ==
[2023-12-21 17:30] VITALS: BP 0/0; PULSE 0; RESP 0; TEMP -17.7; TEMP 0
== END 2023-12-21 17:31 | disposition left against medical advice (07) ==
LOC: UTC 17:00
PROVIDERS: Emergency Provider Nurse Practitioner; PCP Internal Medicine
DX: Z53.21 Procedure and treatment not carried out due to patient leaving prior to being seen by health care provider (principal)

== ENCOUNTER 2024-01-26 08:09 | Emergency (ER) | payer OTHER, SELFPAY ==
[2024-01-26 08:10] VITALS: BP 115/75; PULSE 113; RESP 22; TEMP 36.6; O2SAT 98; BMI 28.0
--- NOTE | 2024-01-26 08:22 | ED_ITS ---
Discharge Plan Disposition Patient Disposition: Home, Self-Care Condition: Good Prescriptions Prescriptions: New azithromycin [Zithromax] 250 mg tablet 250 mg PO UD DOSE PK Qty: 6 0RF Rx Instructions: Take two (2) tablets today, then one (1) tablet days #2 thru #5 benzonatate 100 mg capsule 100 mg PO TIDP PRN (Reason: Cough) Qty: 30 0RF methylprednisolone 4 mg Tablets,Dose Pack 4 mg PO DIRECTED 6 Days Qty: 21 0RF Rx Instructions: Take 1 pack as directed for 6 days No Action Emgality Pen 120 mg/mL pen injector 120 mg SQ MONTHLY PRN (Reason: migraines) divalproex 500 mg tablet extended release 24 hr 500 mg PO BID Patient Comments: TAKE 1 TABLET BY MOUTH TWICE DAILY Linzess 145 mcg capsule PO PRN Patient Comments: TAKE 1 CAPSULE BY MOUTH EVERY MORNING 30 TO 60 MINUTES BEFORE A MEAL Nurtec ODT 75 mg tablet,disintegrating 75 mg PO DAILYP PRN (Reason: Migraine Headache) sumatriptan succinate [Imitrex] 6 mg/0.5 mL Pen Injector 6 mg SQ NEEDED PRN (Reason: migraines) azithromycin [Zithromax] 250 mg tablet 250 mg PO UD DOSE PK Qty: 6 0RF Rx Instructions: Take two (2) tablets today, then one (1) tablet days #2 thru #5 benzonatate 100 mg capsule 100 mg PO TIDP PRN (Reason: Cough) Qty: 30 0RF methylprednisolone 4 mg Tablets,Dose Pack 4 mg PO DIRECTED 6 Days Qty: 21 0RF Rx Instructions: Take 1 pack as directed for 6 days Referrals Follow up/Referrals: Rahul Mars [Primary Care Provider] - See instructions Activity Restrictions/Add. Instructions Additional Instructions/Restrictions: Drink plenty of fluids. Take tylenol or ibuprofen for pain or fever. Take the medications as directed. Follow up with your regular doctor. GO TO THE ER FOR ANY WORSENING SYMPTOMS Don't start the oral steroids (medrol dose pack) until tomorrow since you had the shot here Clinical Impressions Clinical Impression: Acute bronchitis, Sinusitis Instructions Patient Instructions: DI for Sinusitis, DI for Acute Bronchitis, Ceftriaxone Injection, Dexamethasone Injection Print Language Print Language: Burmese Discharge ED Provider: Randy Hubbard [facility] HPI General Stated complaint: cough, congestion, ear pain Time Seen by Provider: 01/26/24 08:22 Related Data Home Medications ?Medication ?Instructions ?Recorded ?Confirmed rimegepant 75 mg disintegrating 75 mg PO DAILYP PRN Migraine 10/13/23 12/06/23 tablet (Nurtec ODT) Headache divalproex 500 mg tablet,extended 500 mg PO BID 11/19/23 12/06/23 release 24 hr galcanezumab-gnlm 120 mg/mL 120 mg SQ MONTHLY PRN migraines 11/19/23 11/19/23 subcutaneous pen injector (Emgality Pen) linaclotide 145 mcg capsule mcg PO PRN 11/19/23 11/19/23 (Linzess) sumatriptan succinate 6 mg/0.5 mL 6 mg SQ NEEDED PRN migraines 12/06/23 0 12/06/23 subcutaneous pen injector Previous Rx's ?Medication ?Instructions ?Recorded azithromycin 250 mg tablet 250 mg PO UD DOSE PK #6 tabs 12/06/23 (Zithromax) benzonatate 100 mg capsule 100 mg PO TIDP PRN Cough #30 caps 12/06/23 methylprednisolone 4 mg tablets in 4 mg PO DIRECTED 6 days #21 tabs 12/06/23 a dose pack azithromycin 250 mg tablet 250 mg PO UD DOSE PK #6 tabs 01/26/24 (Zithromax) benzonatate 100 mg capsule 100 mg PO TIDP PRN Cough #30 caps 01/26/24 methylprednisolone 4 mg tablets in 4 mg PO DIRECTED 6 days #21 tabs 01/26/24 a dose pack Allergies Allergy/AdvReac Type Severity Reaction Status Date / Time cephalexin [From KEFLEX] Allergy Unknown Hives Verified 11/19/23 09:37 [facility] Disclaimer: The information contained in this section may have been updated after the patient was seen, as this information can be updated by other users. Medical History (Updated 01/26/24 @ 08:55 by Randy Hubbard APRN) RLQ abdominal pain MARCO ANTONIO (stress urinary incontinence, female) Vasomotor symptoms due to menopause Family history of colon cancer in father Family history of melanoma Family history of breast cancer Endometriosis Migraine Sinusitis Gastroenteritis Surgical History S/P dilation and curettage H/O wrist surgery H/O shoulder surgery S/P tympanic tube insertion History of tonsillectomy History of hysterectomy History of appendectomy Family History Father Hypertension Thyroid disorder Cancer bone, liver, colon Sister Thyroid disorder Family/Other Cancer Breast/Cancer Social History Smoking Status: Never smoker second hand exposure: No alcohol intake: never current occupational status: employed Travel in the last 8 weeks: None household members: family ROS Obtained: Yes All systems reviewed & no additional complaints except as docu mented Constitutional Constitutional: Reports poor appetite Eyes Eyes: Reports system reviewed and no additional complaints, except as documented ENT Ears, Nose, Mouth, and Throat: Reports as per HPI Cardiovascular Cardiovascular: Reports system reviewed and no additional complaints, except as documented and Denies chest pain Respiratory Respiratory: Denies shortness of breath, Reports chest congestion, Reports cough, Denies stridor and Denies wheezing Gastrointestinal Gastrointestingal: Reports system reviewed and no additional complaints, except as documented; Denies abdominal pain, diarrhea or vomiting Musculoskeletal Musculoskeletal: Reports system reviewed and no additional complaints, except as documented and Denies arthralgias Integumentary/Breasts Skin/Breast: Reports system reviewed and no additional complaints, except as documented and Denies rash Neurologic Neurologic: Denies paresthesias Allergic/Immunologic Allergic/Immunologic: Denies wheezing Physical Exam General General appearance: alert and in no apparent distress Eye Eye exam: Present normal appearance, PERRL and EOMI ENT ENT exam: Present mucous membranes moist and normal external ear exam Expanded ENT Exam External ear exam: Present normal external inspection TM/Canal exam: Bilateral TM: erythema and bulging Nose exam: Absent sinus tenderness Nasal speculum exam: Bilateral: normal Mouth exam: Present normal external inspection; Absent drooling Teeth exam: Present normal inspection Throat exam: Present tonsillar erythema and tonsillomegaly Neck Neck exam: Present normal inspection, full ROM and trachea midline; Absent tenderness, lymphadenopathy or thyromegaly Chest Chest inspection: Present normal inspection and symmetric chest wall rise; Absent tenderness or rash Respiratory Respiratory exam: Present normal lung sounds bilaterally; Absent respiratory distress, wheezes, stridor or accessory muscle use Cardiovascular Cardiovascular exam: Present regular rate, normal rhythm and normal heart sounds Abdominal Exam Abdominal exam: Present soft; Absent distention, tenderness, guarding, rebound or rigidity Extremities Exam Extremities exam: Present normal inspection, full ROM and normal capillary refill; Absent tenderness or calf tenderness Back Exam Back exam: Present normal inspection and full ROM; Absent tenderness Neurological Exam Neurological exam: Present alert and oriented X3 Psychiatric Psychiatric exam: Present normal affect and normal mood Skin Skin exam: Present warm, dry, intact and normal color Lymphatic Lymphatic Findings: no adenopathy Medical Decision Making Medical Records Medical records reviewed: No I reviewed the patient's medical records. Screening: Per USPSTF and CDC recommendations, given the prevalence of disease in our region, it is our hospital?s policy to screen for HIV and viral Hepatitis for all patients aged 18 and over and those with ongoing risk factors. [place] Inquiry Pt receiving controlled substance: No Lab Data Lab results reviewed: Yes I reviewed the patient's lab results.
[2024-01-26] MEDS: cefTRIAXone 1GM VIAL 1 GM IM (08:45)
[2024-01-26] MEDS: DEXAMETHASONE 4MG/ML 1ML VIAL 8 MG IM (08:45)
[2024-01-26] MEDS: LIDOCAINE 1% 5ML PF VIAL IM (08:45)
[2024-01-26 08:56] VITALS: BP 115/75; PULSE 113; RESP 22; TEMP 36.6; O2SAT 98
== END 2024-01-26 08:59 | disposition home or self-care (01) ==
PROVIDERS: Emergency Provider Nurse Practitioner Family; PCP Internal Medicine
DX: J40 Bronchitis, not specified as acute or chronic (principal); J01.90 Acute sinusitis, unspecified
CPT/HCPCS: 96372; 99213; G0381; J0696; J1100

== ENCOUNTER 2024-02-04 08:43 | Emergency (ER) | payer OTHER, SELFPAY ==
[2024-02-04 08:55] VITALS: BP 107/77; PULSE 107; RESP 22; TEMP 36.4; O2SAT 100; BMI 27.7
--- NOTE | 2024-02-04 09:04 | EXP.UTC ---
Discharge Plan Disposition Patient Disposition: Home, Self-Care Condition: Good Prescriptions Prescriptions: New azithromycin [Zithromax] 250 mg tablet 250 mg PO UD DOSE PK Qty: 6 0RF Rx Instructions: Take two (2) tablets today, then one (1) tablet days #2 thru #5 benzonatate 100 mg capsule 100 mg PO TIDP PRN (Reason: Cough) Qty: 30 0RF methylprednisolone 4 mg Tablets,Dose Pack 4 mg PO DIRECTED 6 Days Qty: 21 0RF Rx Instructions: Take 1 pack as directed for 6 days No Action Nurtec ODT 75 mg tablet,disintegrating 75 mg PO DAILYP PRN (Reason: Migraine Headache) lisinopril 10 mg tablet 10 mg PO DAILY Patient Comments: TAKE 1 TABLET BY MOUTH EVERY DAY Emgality Pen 120 mg/mL pen injector 120 mg SQ MONTHLY Referrals Follow up/Referrals: Rahul Mars [Primary Care Provider] - See instructions Activity Restrictions/Add. Instructions Additional Instructions/Restrictions: Drink plenty of fluids. Take tylenol or ibuprofen for pain or fever. Take the medications as directed. Follow up with your regular doctor. GO TO THE ER FOR ANY WORSENING SYMPTOMS Clinical Impressions Clinical Impression: Upper respiratory infection Otitis media Qualifiers: Otitis media type: unspecified Laterality: left Qualified Code(s): H66.92 - Otitis media, unspecified, left ear Stand Alone Forms Stand Alone Forms: Work/School Release Instructions Patient Instructions: Middle Ear Infection Print Language Print Language: Malay Discharge ED Provider: Randy Hubbard [facility] General Stated complaint: ear pain, cough Time Seen by Provider: 02/04/24 09:04 Related Data Home Medications ?Medication ?Instructions ?Recorded ?Confirmed rimegepant 75 mg disintegrating 75 mg PO DAILYP PRN Migraine 10/13/23 02/04/24 tablet (Nurtec ODT) Headache galcanezumab-gnlm 120 mg/mL 120 mg SQ MONTHLY 02/04/24 02/04/24 subcutaneous pen injector (Emgality Pen) lisinopril 10 mg tablet 10 mg PO DAILY 02/04/24 02/04/24 Previous Rx's ?Medication ?Instructions ?Recorded azithromycin 250 mg tablet 250 mg PO UD DOSE PK #6 tabs 02/04/24 (Zithromax) benzonatate 100 mg capsule 100 mg PO TIDP PRN Cough #30 caps 02/04/24 methylprednisolone 4 mg tablets in 4 mg PO DIRECTED 6 days #21 tabs 02/04/24 a dose pack Allergies Allergy/AdvReac Type Severity Reaction Status Date / Time cephalexin [From KEFLEX] Allergy Unknown Hives Verified 11/19/23 09:37 [facility] Disclaimer: The information contained in this section may have been updated after the patient was seen, as this information can be updated by other users. Medical History (Updated 02/04/24 @ 09:24 by Randy Hubbard APRN) RLQ abdominal pain MARCO ANTONIO (stress urinary incontinence, female) Vasomotor symptoms due to menopause Family history of colon cancer in father Family history of melanoma Family history of breast cancer Endometriosis Migraine Sinusitis Gastroenteritis Surgical History S/P dilation and curettage H/O wrist surgery H/O shoulder surgery S/P tympanic tube insertion History of tonsillectomy History of hysterectomy History of appendectomy Family History Father Hypertension Thyroid disorder Cancer bone, liver, colon Sister Thyroid disorder Family/Other Cancer Breast/Cancer Social History Smoking Status: Never smoker second hand exposure: No alcohol intake: never current occupational status: employed Travel in the last 8 weeks: None household members: family ROS Obtained: Yes All systems reviewed & no additional complaints except as documented Constitutional Constitutional: Denies chills, Reports fever(s) and Reports poor appetite Eyes Eyes: Denies eye discharge ENT Ears, Nose, Mouth, and Throat: Denies ear discharge, Reports otalgia, Denies hearing loss, Denies sinus pain and Reports sore throat Cardiovascular Cardiovascular: Denies chest pain and Denies dyspnea Respiratory Respiratory: Denies chest congestion, Reports cough and Denies dyspnea Gastrointestinal Gastrointestingal: Denies abdominal pain, diarrhea, nausea or vomiting Musculoskeletal Musculoskeletal: Denies arthralgias Integumentary/Breasts Skin/Breast: Denies rash Physical Exam General General appearance: alert and in no apparent distress Head Head exam: atraumatic, normocephalic and normal inspection Eye Eye exam: Present normal appearance; Absent PERRL or EOMI ENT ENT exam: Present mucous membranes moist and normal external ear exam Expanded ENT Exam TM/Canal exam: Bilateral TM: erythema, bulging and effusion Nose exam: Absent sinus tenderness Nasal speculum exam: Bilateral: normal Mouth exam: Present normal external inspection and other; Absent drooling Teeth exam: Present normal inspection Throat exam: Present tonsillar erythema and tonsillomegaly Neck Neck exam: Present normal inspection, full ROM and trachea midline; Absent tenderness, meningismus or lymphadenopathy Chest Chest inspection: Present normal inspection and symmetric chest wall rise; Absent tenderness Respiratory Respiratory exam: Present normal lung sounds bilaterally; Absent respiratory distress, wheezes or stridor Cardiovascular Cardiovascular exam: Present regular rate, normal rhythm and normal heart sounds; Absent tachycardia or irregular rhythm Abdominal Exam Abdominal exam: Present soft and normal bowel sounds; Absent distention, tenderness, guarding, rebound or rigidity Extremities Exam Extremities exam: Present normal inspection and normal capillary refill; Absent tenderness, joint swelling or calf tenderness Back Exam Back exam: Present normal inspection and full ROM; Absent tenderness, CVA tenderness (R) or CVA tenderness (L) Neurological Exam Neurological exam: Present alert, oriented X3, CN II-XII intact, normal gait and reflexes normal; Absent motor sensory deficit Psychiatric Psychiatric exam: Present normal affect and normal mood Skin Skin exam: Present warm, dry, intact and normal color Lymphatic Lymphatic Findings: no adenopathy Medical Decision Making Medical Records Medical records reviewed: No I reviewed the patient's medical records. Screening: Per USPSTF and CDC recommendations, given the prevalence of disease in our region, it is our hospital?s policy to screen for HIV and viral Hepatitis for all patients aged 18 and over and those with ongoing risk factors. [place] Inquiry Pt receiving controlled substance: No
[2024-02-04 09:25] VITALS: BP 107/77; PULSE 107; RESP 22; TEMP 36.4; O2SAT 100
== END 2024-02-04 09:30 | disposition home or self-care (01) ==
PROVIDERS: Emergency Provider Nurse Practitioner Family; PCP Internal Medicine
DX: H66.92 Otitis media, unspecified, left ear (principal); H92.02 Otalgia, left ear; R05.9 Cough, unspecified
CPT/HCPCS: 99212; G0381

== ENCOUNTER 2024-04-10 09:20 | Emergency (ER) | payer BC, OTHER, SELFPAY ==
[2024-04-10 10:08] VITALS: BP 110/77; PULSE 109; RESP 20; TEMP 37; O2SAT 99; BMI 26.6
[2024-04-10 10:21] LABS: UTC Influenza A Antigen Positive (Negative)
[2024-04-10 10:22] LABS: UTC Influenza B Antigen Negative (Negative)
--- NOTE | 2024-04-10 10:25 | ED_ITS ---
Discharge Plan Disposition Patient Disposition: Home, Self-Care Condition: Good Prescriptions Prescriptions: New benzonatate 100 mg capsule 100 mg PO TIDP PRN (Reason: Cough) Qty: 30 0RF oseltamivir [Tamiflu] 75 mg capsule 75 mg PO BID 5 Days Qty: 10 0RF No Action Nurtec ODT 75 mg tablet,disintegrating 75 mg PO DAILYP PRN (Reason: Migraine Headache) lisinopril 10 mg tablet 10 mg PO DAILY Patient Comments: TAKE 1 TABLET BY MOUTH EVERY DAY Emgality Pen 120 mg/mL pen injector 120 mg SQ MONTHLY Referrals Follow up/Referrals: Rahul Mars [Primary Care Provider] - See instructions Activity Restrictions/Add. Instructions Additional Instructions/Restrictions: Drink plenty of fluids. Take tylenol or ibuprofen for pain or fever. Take the medications as directed. Follow up with your regular doctor. GO TO THE ER FOR ANY WORSENING SYMPTOMS Clinical Impressions Clinical Impression: Influenza A Instructions Patient Instructions: DI for Influenza -- Adult, Oseltamivir Print Language Print Language: Kiswahili Discharge ED Provider: Randy Hubbard [facility] [place] HPI General Stated complaint: cough ba fever runny nose pillai Mode of Arrival: Ambulatory Source of Information: Patient Time Seen by Provider: 04/10/24 10:25 Description of Symptoms (Recalled from Triage Doc. by RN): FEVER, BA, COUGH, RUNNY NOSE HEENT Symptoms (Recalled from RN notes): Yes Resp Symptoms (Recalled from RN notes): Yes Skin Symptoms (Recalled from RN notes): No MS Symptoms (Recalled from RN notes): No Functional Status (Recalled from RN notes): WNL Related Data Home Medications ?Medication ?Instructions ?Recorded ?Confirmed rimegepant 75 mg disintegrating 75 mg PO DAILYP PRN Migraine 10/13/23 04/10/24 tablet (Nurtec ODT) Headache galcanezumab-gnlm 120 mg/mL 120 mg SQ MONTHLY 02/04/24 02/04/24 subcutaneous pen injector (Emgality Pen) lisinopril 10 mg tablet 10 mg PO DAILY 02/04/24 04/10/24 Previous Rx's ?Medication ?Instructions ?Recorded benzonatate 100 mg capsule 100 mg PO TIDP PRN Cough #30 caps 04/10/24 oseltamivir 75 mg capsule (Tamiflu) 75 mg PO BID 5 days #10 caps 04/10/24 Allergies Allergy/AdvReac Type Severity Reaction Status Date / Time cephalexin (From KEFLEX) Allergy Unknown Hives Verified 11/19/23 09:37 Worker's Comp Is this a Worker's Comp case?: No [facility] Disclaimer: The information contained in this section may have been updated after the patient was seen, as this information can be updated by other users. Medical History (Updated 04/10/24 @ 10:28 by Randy Hubbard APRN) RLQ abdominal pain MARCO ANTONIO (stress urinary incontinence, female) Vasomotor symptoms due to menopause Family history of colon cancer in father Family history of melanoma Family history of breast cancer Endometriosis Migraine Sinusitis Gastroenteritis Surgical History S/P dilation and curettage H/O wrist surgery H/O shoulder surgery S/P tympanic tube insertion History of tonsillectomy History of hysterectomy History of appendectomy Family History Father Hypertension Thyroid disorder Cancer bone, liver, colon Sister Thyroid disorder Family/Other Cancer Breast/Cancer Social History Smoking Status: Never smoker second hand exposure: No alcohol intake: never current occupational status: employed Travel in the last 8 weeks: None household members: family Have you lived/traveled outside US in past 30 days?: No Contact w/someone who lives/traveled outside US past 30 days?: No Exposure to someone with infectious disease in past 14 days?: No Do you have a fever (greater than 100.4 F or 38 C)?: Yes Have you tested positive for COVID-19: No Exposed to someone with COVID-19 in past 14 days?: No Do you have a sore throat?: No Do you have a cough?: Yes Do you have any weakness?: Yes Do you have any diarrhea?: No Are you experiencing any unusual bleeding?: No Do you have any muscle aches/pain?: No Do you have any abdominal pain?: No Are you experiencing loss of taste or smell?: No ROS Obtained: Yes All systems reviewed & no additional complaints except as documented Constitutional Constitutional: Reports chills and Reports fever(s) Eyes Eyes: Denies eye discharge ENT Ears, Nose, Mouth, and Throat: Reports as per HPI Cardiovascular Cardiovascular: Denies chest pain Respiratory Respiratory: Denies chest congestion and Reports cough Gastrointestinal Gastrointestingal: Reports nausea; Denies abdominal pain, constipation, cramping, diarrhea or vomiting Musculoskeletal Musculoskeletal: Denies arthralgias Integumentary/Breasts Skin/Breast: Denies rash Neurologic Neurologic: Denies paresthesias Physical Exam General General appearance: alert and in no apparent distress Head Head exam: atraumatic, normocephalic and normal inspection Eye Eye exam: Present normal appearance, PERRL and EOMI ENT ENT exam: Present normal exam, normal oropharynx, mucous membranes moist, TM's normal bilaterally and normal external ear exam Neck Neck exam: Present normal inspection, full ROM and trachea midline; Absent meningismus or lymphadenopathy Chest Chest inspection: Present normal inspection and symmetric chest wall rise; Absent tenderness Respiratory Respiratory exam: Present normal lung sounds bilaterally; Absent respiratory distress Cardiovascular Cardiovascular exam: Present regular rate and normal rhythm; Absent JVD Abdominal Exam Abdominal exam: Present soft and normal bowel sounds; Absent distention, tenderness or guarding Extremities Exam Extremities exam: Present normal inspection, full ROM and normal capillary refill; Absent calf tenderness Back Exam Back exam: Present normal inspection; Absent tenderness Neurological Exam Neurological exam: Present alert and oriented X3 Psychiatric Psychiatric exam: Present normal affect and normal mood Skin Skin exam: Present warm, dry, intact and normal color Lymphatic Lymphatic Findings: no adenopathy Medical Decision Making Medical Records Medical records reviewed: No I reviewed the patient's medical records. Screening: Per USPSTF and CDC recommendations, given the prevalence of disease in our region, it is our hospital?s policy to screen for HIV and viral Hepatitis for all patients aged 18 and over and those with ongoing risk factors. [place] Inquiry Pt receiving controlled substance: No Vital Signs: 04/10/24 10:08 Temperature 98.6 F Temperature Source Oral Pulse Rate [Left Brachial] 109 H Respiratory Rate 20 Blood Pressure [Left Arm] 110/77 Blood Pressure Mean [Left Arm] 88 02 Sat by Pulse Oximetry 99 Lab Data Lab results reviewed: Yes I reviewed the patient's lab results. Lab Results 04/10/24 10:10: Influenza Type A Ag Positive A, Influenza Type B Ag Negative
[2024-04-10 10:30] VITALS: BP 110/77; PULSE 109; RESP 20; TEMP 37
== END 2024-04-10 10:32 | disposition home or self-care (01) ==
PROVIDERS: Emergency Provider Nurse Practitioner Family; PCP Internal Medicine
DX: J09.X2 Influenza due to identified novel influenza A virus with other respiratory manifestations (principal); R50.9 Fever, unspecified; R51.9 Headache, unspecified; R05.9 Cough, unspecified; M54.9 Dorsalgia, unspecified; R11.0 Nausea
CPT/HCPCS: 87804; 99212; G0381

== ENCOUNTER 2024-04-12 11:34 | Emergency (ER) | payer BC, OTHER, SELFPAY ==
[2024-04-12 12:00] VITALS: BP 151/90; PULSE 79; RESP 18; TEMP 36.7; O2SAT 98; BMI 29.3
--- NOTE | 2024-04-12 12:10 | ED_ITS ---
Discharge Plan Disposition Patient Disposition: Home, Self-Care Condition: Good Prescriptions Prescriptions: New guaifenesin [Mucinex] 1,200 mg tablet extended release 12hr 1,200 mg PO Q12H Qty: 60 0RF No Action benzonatate 100 mg capsule 100 mg PO TIDP PRN (Reason: Cough) Qty: 30 0RF oseltamivir [Tamiflu] 75 mg capsule 75 mg PO BID 5 Days Qty: 10 0RF Nurtec ODT 75 mg tablet,disintegrating 75 mg PO DAILYP PRN (Reason: Migraine Headache) lisinopril 10 mg tablet 10 mg PO DAILY Patient Comments: TAKE 1 TABLET BY MOUTH EVERY DAY Emgality Pen 120 mg/mL pen injector 120 mg SQ MONTHLY montelukast 10 mg tablet 10 mg PO DAILY Patient Comments: TAKE 1 TABLET BY MOUTH DAILY albuterol sulfate [Ventolin HFA] 90 mcg/actuation HFA aerosol inhaler 2 puff INHALATION Q4-6H Patient Comments: INHALE 2 PUFFS BY MOUTH EVERY 4 TO 6 HOURS NEEDED DIRECTED divalproex 250 mg tablet extended release 24 hr 250 mg PO DAILY Patient Comments: TAKE 1 TABLET BY MOUTH TWICE A DAY. TAKE ALONG WITH DEPAKOTE ER 500MG TWICE DAILY budesonide-formoterol [Symbicort] 80-4.5 mcg/actuation HFA aerosol inhaler 2 puff INHALATION BIDP PRN (Reason: SOA) Patient Comments: INHALE 2 PUFFS BY MOUTH TWICE DAILY NEEDED DIRECTED. RINSE MOUTH AFTER USE Referrals Follow up/Referrals: Rahul Mars [Primary Care Provider] - See instructions Activity Restrictions/Add. Instructions Additional Instructions/Restrictions: * Continue Tamiflu * Lots of rest * Increase Fluids water, Gatorade, powerade, pedialyte,if infant/toddler/child * Alternate Tylenol and / or ibuprofen as discussed for fever, aches, chills Follow up IMMEDIATELY with your family doctor for new or worsening Symptoms OR no noticeable improvement over the next 48-72 hours, 911 for difficulty or breathing * You or your child area contagious until no fever, aches, chills for 24 hours with medication for symptoms * Help Prevent the spread of influenza: * ?Wash your hands often. Use soap and water. Wash your hands after you use the bathroom, change a child's diapers, or sneeze. Wash your hands before you prepare or eat food. Use gel hand cleanser that has 60% alcohol, when soap and water are not available. Do not touch your eyes, nose, or mouth unless you have washed your hands first. * Cover your mouth when you sneeze or cough. Cough into a tissue or the bend of your arm. If you use a tissue, throw it away immediately and wash your hands. * Clean shared items with a germ-killing ceiling cleaner. Clean table surfaces, doorknobs, and light switches. Do not share towels, silverware, and dishes with people who are sick. Wash bed sheets, towels, silverware, and dishes with soap and water. * Wear a mask over your mouth and nose if you are sick. The face mask may help protect others from becoming infected with the flu. Wear the mask when in common areas of your home or if you seek care with a healthcare provider. * Stay away from others if you are sick. Stay at home until 24 hours after your fever and symptoms are gone. ? Clinical Impressions Clinical Impression: Influenza Instructions Patient Instructions: DI for Influenza -- Adult, Cough Print Language Print Language: Bhutanese Discharge ED Provider: Radha Yee [facility] General Stated complaint: cough Mode of Arrival: Ambulatory Source of Information: Patient Limitations: No Limitations Time Seen by Provider: 04/12/24 12:10 Description of Symptoms (Recalled from Triage Doc. by RN): PATIENT C/O COUGH AND CHEST CONGESTION. RECENTLY DIAGNOSED WITH FLU HEENT Symptoms (Recalled from RN notes): No Resp Symptoms (Recalled from RN notes): Yes Skin Symptoms (Recalled from RN notes): No MS Symptoms (Recalled from RN notes): No Functional Status (Recalled from RN notes): WNL History of Present Illness Provider Complaint: Patient states that she was dx with Influenza 2 days ago States that she was prescribed tessalone perrles for her cough but she is still having cough and congestion so she came back in to see if there was something else she could take Related Data Home Medications ?Medication ?Instructions ?Recorded ?Confirmed rimegepant 75 mg disintegrating 75 mg PO DAILYP PRN Migraine 10/13/23 04/12/24 tablet (Nurtec ODT) Headache galcanezumab-gnlm 120 mg/mL 120 mg SQ MONTHLY 02/04/24 04/12/24 subcutaneous pen injector (Emgality Pen) lisinopril 10 mg tablet 10 mg PO DAILY 02/04/24 04/12/24 albuterol sulfate 90 mcg/actuation 2 puff inhalation Q4-6H 04/12/24 04/12/24 aerosol inhaler (Ventolin HFA) budesonide-formoterol HFA 80 2 puff inhalation BIDP PRN SOA 04/12/24 04/12/24 mcg-4.5 mcg/actuation aerosol inhaler (Symbicort) divalproex 250 mg tablet,extended 250 mg PO DAILY 04/12/24 04/12/24 release 24 hr montelukast 10 mg tablet 10 mg PO DAILY 04/12/24 04/12/24 Previous Rx's ?Medication ?Instructions ?Recorded benzonatate 100 mg capsule 100 mg PO TIDP PRN Cough #30 caps 04/10/24 oseltamivir 75 mg capsule (Tamiflu) 75 mg PO BID 5 days #10 caps 04/10/24 guaifenesin 1,200 mg tablet, 1,200 mg PO Q12H #60 tabs 04/12/24 extended release 12 hr (Mucinex) Allergies Allergy/AdvReac Type Severity Reaction Status Date / Time cephalexin (From KEFLEX) Allergy Unknown Hives Verified 11/19/23 09:37 Worker's Comp Is this a Worker's Comp case?: No [facility] Disclaimer: The information contained in this section may have been updated after the patient was seen, as this information can be updated by other users. Medical History (Updated 04/12/24 @ 12:14 by Radha Yee APRN) RLQ abdominal pain MARCO ANTONIO (stress urinary incontinence, female) Vasomotor symptoms due to menopause Family history of colon cancer in father Family history of melanoma Family history of breast cancer Endometriosis Migraine Sinusitis Gastroenteritis Surgical History S/P dilation and curettage H/O wrist surgery H/O shoulder surgery S/P tympanic tube insertion History of tonsillectomy History of hysterectomy History of appendectomy Family History Father Hypertension Thyroid disorder Cancer bone, liver, colon Sister Thyroid disorder Family/Other Cancer Breast/Cancer Social History Smoking Status: Never smoker second hand exposure: No alcohol intake: never current occupational status: employed Travel in the last 8 weeks: None household members: family Have you lived/traveled outside US in past 30 days?: No Contact w/someone who lives/traveled outside US past 30 days?: No Exposure to someone with infectious disease in past 14 days?: No Do you have a fever (greater than 100.4 F or 38 C)?: No Have you tested positive for COVID-19: No Exposed to someone with COVID-19 in past 14 days?: No Do you have a sore throat?: No Do you have a cough?: Yes Do you have any weakness?: No Do you have any diarrhea?: No Are you experiencing any unusual bleeding?: No Do you have any muscle aches/pain?: No Do you have any abdominal pain?: No Are you experiencing loss of taste or smell?: No ROS Obtained: Yes All systems reviewed & no additional complaints except as documented and Yes Systems reviewed as appropriate & no additional complaints except as documented Constitutional Constitutional: Reports system reviewed and no additional complaints, except as documented and Reports as per HPI Eyes Eyes: Reports system reviewed and no additional complaints, except as documented and Reports as per HPI ENT Ears, Nose, Mouth, and Throat: Reports system reviewed and no additional complaints, except as documented and Reports as per HPI Cardiovascular Cardiovascular: Reports system reviewed and no additional complaints, except as documented and Reports as per HPI Respiratory Respiratory: Reports system reviewed and no additional complaints, except as documented, Reports as per HPI, Denies shortness of breath, Reports chest congestion and Reports cough Gastrointestinal Gastrointestingal: Reports system reviewed and no additional complaints, except as documented and as per HPI Physical Exam General General appearance: alert and in no apparent distress ENT ENT exam: Present normal exam, normal oropharynx, mucous membranes moist and TM's normal bilaterally Respiratory Respiratory exam: Present normal lung sounds bilaterally; Absent respiratory distress or wheezes Cardiovascular Cardiovascular exam: Present regular rate, normal rhythm and normal heart sounds Abdominal Exam Abdominal exam: Present soft and normal bowel sounds; Absent distention or tenderness Neurological Exam Neurological exam: Present alert, oriented X3 and normal gait Medical Decision Making Medical Records Screening: Per USPSTF and CDC recommendations, given the prevalence of disease in our region, it is our hospital?s policy to screen for HIV and viral Hepatitis for all patients aged 18 and over and those with ongoing risk factors. [place] Inquiry Pt receiving controlled substance: No [place] was queried for this patient: No Vital Signs: 04/12/24 12:00 Temperature 98.1 F Temperature Source Oral Pulse Rate [Left Brachial] 79 Respiratory Rate 18 Blood Pressure [Left Arm] 151/90 H Blood Pressure Mean [Left Arm] 110 Blood Pressure Source [Left Arm] Automatic Cuff Blood Pressure Position [Left Arm] Sitting 02 Sat by Pulse Oximetry 98 Oxygen Delivery Method Room Air
[2024-04-12 12:18] VITALS: BP 151/90; PULSE 79; RESP 18; TEMP 36.7; O2SAT 98
== END 2024-04-12 13:03 | disposition home or self-care (01) ==
PROVIDERS: Emergency Provider Nurse Practitioner; PCP Internal Medicine
DX: J11.1 Influenza due to unidentified influenza virus with other respiratory manifestations (principal); R05.9 Cough, unspecified; R09.89 Other specified symptoms and signs involving the circulatory and respiratory systems
CPT/HCPCS: 99212; G0381

== ENCOUNTER 2024-05-24 10:58 | Outpatient (CLI) | payer OTHER, SELFPAY ==
[2024-05-24 12:35] LABS: HIV Combo NEGATIVE (Negative)
[2024-05-24 12:44] LABS: Hepatitis C Ab Qual. W/ RFX NEGATIVE (Negative)
[2024-05-24 15:32] LABS: RPR W/RFX Titers Nonreactive (Nonreactive)
[2024-05-25 05:07] LABS: Hepatitis B Surface Antigen Negative (Negative)
== END 2024-05-24 23:59 | disposition home or self-care (01) ==
LOC: LAB 10:59
PROVIDERS: PCP Internal Medicine; Visit Provider Obstetrics & Gynecology
DX: N89.8 Other specified noninflammatory disorders of vagina (principal); Z20.2 Contact with and (suspected) exposure to infections with a predominantly sexual mode of transmission
CPT/HCPCS: 36415; 86592; 86803; 87340; 87389